=== PATIENT | female | born 1955 | race American Indian/Alaskan Native ===

== ENCOUNTER 2018-03-22 14:51 | Inpatient (IN) | payer OTHER ==
--- NOTE | 2018-03-22 15:50 | Event Note ---
Date: 03/22/18 Pt seen in consultation in our office today by Dr. Benitez. 62-year-old female with no known past medical history presented to her primary care physician's office earlier today with multiple complaints including orthopnea, paroxysmal nocturnal dyspnea, increasing shortness of breath on exertion. The patient also has significant lower extremity edema. In the office today her blood pressure was elevated although she currently reports that she does not take any medications. The patient also has been complaining intermittent chest pain that she describes has been increasing over the last few days. A 12 EKG in the office today revealed sinus rhythm with a right bundle-branch block. She was directly admitted to [facility] per hospitalists for acute congestive heart failure. Will obtain labwork and likely initiate IV diuretics and obtain echo. 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 Further recs to follow per hospital course. Pedro CROWLEY NP / DR. GUILLORY
[2018-03-22 17:33] LABS: Hematocrit 44.7 % (30.3-42.9); Hemoglobin 14.6 gm/dl (10.1-14.3); Mean Corpuscular HGB Conc 33 % (30-34); Mean Corpuscular Volume 90 fl (79-97); Platelet Count 280 K/mm3 (140-440); Red Blood Count 4.96 M/mm3 (3.65-5.03); Red Cell Distribution Width 16.3 % (13.2-15.2)
[2018-03-22 17:54] LABS: Alanine Aminotransferase 14 units/L (7-56); Albumin 3.8 g/dL (3.9-5); BUN/Creatinine Ratio 14; Blood Urea Nitrogen 7 mg/dL (7-17); Calcium 9.5 mg/dL (8.4-10.2); Hemolysis Index 76
--- NOTE | 2018-03-22 18:54 | XRay Report ---
FINAL REPORT EXAM: XR CHEST 1V AP HISTORY: sob TECHNIQUE: Frontal chest x-ray Comparison: None FINDINGS: Enlarged cardiac silhouette. Pulmonary vascular congestion with mild interstitial edema. Left hemidiaphragm is partially silhouetted. Left lung base is incompletely penetrated. Prominent right hilum incompletely assessed. IMPRESSION: Enlarged cardiac silhouette may represent cardiomegaly versus pericardial effusion. Pulmonary vascular congestion. Possible mild congestive failure. No definite pleural effusion on the single-view frontal exam. Incompletely penetrated left lung base. Heart has a somewhat water bottle configuration which may sug gest pericardial effusion. Consider ECHO. Prominence of the right hilum incompletely characterized. If there priors available for comparison, r ecommend comparing or consider CT chest with IV contrast.
[2018-03-23] MEDS ORDERED: DILAUDID IV PRN (00:52)
[2018-03-23] MEDS ORDERED: ZOFRAN IV PRN (00:52)
[2018-03-23] MEDS: LASIX IV SCH ×2 (06:10→17:29)
[2018-03-23] MEDS: SODIUM CHLORIDE FLUSH SYRINGE 10 ML IV PRN ×2 (06:10→12:44)
--- NOTE | 2018-03-23 06:11 | Event Note ---
Date: 03/22/18 See Dictated H/p in reports CHF exacerbation--New onset Direct admit
[2018-03-23 06:13] LABS: Alanine Aminotransferase 12 units/L (7-56); Albumin 3.7 g/dL (3.9-5); BUN/Creatinine Ratio 14; Blood Urea Nitrogen 7 mg/dL (7-17); Hemolysis Index 25
--- NOTE | 2018-03-23 10:57 | Progress Note ---
Assessment and Plan Assessment and plan: Acute systolic heart failure. Patient sent in as a direct admit from [facility] exterior work helper Crystal SILVERIO Coreg by mouth twice a day Diabetes mellitus type 2 Hemoglobin A1c 7.5 Blood glucose less than 120 so will not start scheduled Insulin unless as per sliding scale Morbid obesity. Counseled on diet and exercise to lose weight Full code status. History Interval history: Shortness of breath, No chest pain currently Hospitalist Physical - Physical exam Narrative exam: GEN: Not in acute distress, morbidly obese, sitting up in chair HEENT: Normocephalic, atraumatic, Neck: supple, No JVD Lungs: Bilateral crackles, no rhonchi, no wheeze Heart:S1 and S2 regular, no murmurs, rubs or gallop, Abd:soft, non tender, non distended, normal bowel sounds Ext: Bilateral lower ext edema, no clubbing or cyanosis Neuro: Awake,alert, oriented x 3, No focal signs Paych:Normal mood - Constitutional Vitals: Temp Pulse Resp BP Pulse Ox 97.7 F 78 20 151/68 85 03/23/18 07:58 03/23/18 07:58 03/23/18 07:58 03/23/18 07:58 03/23/18 07:58 Results - Labs CBC & Chem 7: 03/22/18 17:10 03/23/18 05:23 Labs: Laboratory Last Values WBC 5.5 K/mm3 (4.5-11.0) 03/22/18 17:10 RBC 4.96 M/mm3 (3.65-5.03) 03/22/18 17:10 Hgb 14.6 gm/dl (10.1-14.3) H 03/22/18 17:10 Hct 44.7 % (30.3-42.9) H 03/22/18 17:10 MCV 90 fl (79-97) 03/22/18 17:10 MCH 30 pg (28-32) 03/22/18 17:10 MCHC 33 % (30-34) 03/22/18 17:10 RDW 16.3 % (13.2-15.2) H 03/22/18 17:10 Plt Count 280 K/mm3 (140-440) 03/22/18 17:10 Sodium 140 mmol/L (137-145) 03/23/18 05:23 Potassium 4.4 mmol/L (3.6-5.0) 03/23/18 05:23 Chloride 95.9 mmol/L (98-107) L 03/23/18 05:23 Carbon Dioxide 35 mmol/L (22-30) H 03/23/18 05:23 Anion Gap 14 mmol/L 03/23/18 05:23 BUN 7 mg/dL (7-17) 03/23/18 05:23 Creatinine 0.5 mg/dL (0.7-1.2) L 03/23/18 05:23 Estimated GFR > 60 ml/min 03/23/18 05:23 BUN/Creatinine Ratio 14 % 03/23/18 05:23 Glucose 113 mg/dL (65-100) H 03/23/18 05:23 Hemoglobin A1c 7.5 % (4-6) H 03/23/18 05:23 Calcium 9.0 mg/dL (8.4-10.2) 03/23/18 05:23 Total Bilirubin 0.60 mg/dL (0.1-1.2) 03/23/18 05:23 AST 20 units/L (5-40) 03/23/18 05:23 ALT 12 units/L (7-56) 03/23/18 05:23 Alkaline Phosphatase 54 units/L (35-129) 03/23/18 05:23 NT-Pro-B Natriuret Pep 2245 pg/mL (0-900) H 03/22/18 17:10 Total Protein 7.4 g/dL (6.3-8.2) 03/23/18 05:23 Albumin 3.7 g/dL (3.9-5) L 03/23/18 05:23 Albumin/Globulin Ratio 1.0 % 03/23/18 05:23
[2018-03-23] MEDS: SODIUM CHLORIDE FLUSH SYRINGE 10 ML IV SCH ×2 (11:16→21:19)
[2018-03-23] MEDS: K-DUR PO SCH ×2 (11:16→21:19)
--- NOTE | 2018-03-23 15:28 | History and Physical Report ---
CHIEF COMPLAINT: Increasing shortness of breath. HISTORY OF PRESENT ILLNESS: A 62-year-old -[place] female who was a direct admit from the [facility] office, sent for recent onset of shortness of breath on minimal exertion and pedal edema. This has been going on for 1 week. The patient apparently gained about 20-30 pounds of weight. The patient is also morbidly obese. Shortness of breath on minimal exertion and also orthopnea present. No paroxysmal nocturnal dyspnea attacks. No fever or chills. The patient has history of hypertension. MEDICATIONS: Not known. PAST MEDICAL HISTORY: Hypertension, possible CHF. PAST SURGICAL HISTORY: None. FAMILY HISTORY: Hypertension. SOCIAL HISTORY: Does not smoke. No alcohol, no recreational drugs. REVIEW OF SYSTEMS: Significant for shortness of breath on minimal exertion, pedal edema, orthopnea, and morbid obesity. Otherwise, review of systems negative. No chest pain. PHYSICAL EXAMINATION: GENERAL: Morbidly obese young elderly female lying in bed in no distress. VITAL SIGNS: Blood pressure is 147/64, temperature is 97.9, pulse is 105, respirations are 22. HEENT: Unremarkable. Pupils are equal and reactive. NECK: Supple, no lymphadenopathy, no thyromegaly. LUNGS: Clear to auscultation and percussion. Good air entry. CARDIOVASCULAR: S1, S2 heard. No gallop, no murmur, no rub. Apical impulse in left fifth intercostal space and midclavicular line. ABDOMEN: Soft and benign. No hepatosplenomegaly. No guarding, no rigidity. Hernial orifices are normal. EXTREMITIES: Good pedal pulses. 3+ pedal edema present. SKIN: Normal. LABORATORY DATA: Significant for white count of 5500, H and H is 14.6 and 44.7, platelet count is 280,000. BUN and creatinine is 7.5. Sodium is 140, potassium is 4.3, chloride is 95.8, bicarbonate is 33. BNP is 2245. Albumin is 3.8. DIAGNOSTIC DATA: EKG shows a right bundle branch block, heart rate of 82. Chest x-ray shows cardiomegaly, pulmonary vascular congestion. Incompletely penetrated left base. Prominence of right hilum. Consider CT chest with IV contrast. ASSESSMENT AND PLAN: 1. Acute congestive heart failure exacerbation secondary to diastolic failure and possible systolic failure. The patient to get echocardiogram. IV Lasix 40 mg q. 12 initiated daily. Intake, output and daily weights. Also, Lexiscan ordered. 2. Hypertension. The patient initiated on losartan. 3. Morbid obesity. The patient counseled. 4. Malnutrition, mild to moderate. Albumin is 3.8. Dietitian consult requested. JOB# [id number] VSM/NTS
--- NOTE | 2018-03-23 15:36 | Progress Note ---
Assessment and Plan Acute Systolic Heart Failure Echocardiogram reveals moderate to severe left ventricular hypertrophy, ejection fraction 35-40% Recommend carvedilol 6.25 twice a day If tolerates Beta Jason will consider AMERICA/ARB tomorrow Continue IV diuresis Strict I's and O's/daily weights Closely monitor potassium/creatinine Moderate/Severe LVH Hypertension Morbid Obesity Hgb A1c 7.5 recommendation per Hospitalist service Subjective Date of service: 03/23/18 Principal diagnosis: shortness of breath, bilateral lower extremity edema Interval history: Patient is feeling somewhat better this morning. However she continues to complain of some shortness of breath. She is also complaining of tightness in her legs with discomfort. Objective Vital Signs Temp Pulse Resp BP Pulse Ox 03/23/18 07:58 97.7 F 78 20 151/68 85 03/23/18 04:06 97.3 F L 78 20 167/92 92 03/22/18 23:31 97.9 F 85 22 168/89 92 03/22/18 20:04 97.9 F 105 H 22 147/64 92 03/22/18 20:00 88 03/22/18 16:33 83 - Physical Examination General: No Apparent Distress HEENT: Positive: PERRL Neck: Positive: neck supple, trachea midline Cardiac: Positive: Reg Rate and Rhythm Lungs: Positive: Decreased Breath Sounds Neuro: Positive: Grossly Intact Abdomen: Positive: Soft, Active Bowel Sounds, Other (obese) Skin: Positive: Rash Extremities: Present: +3 Edema, warm - Labs and Meds Cardiac Enzymes 03/22/18 03/23/18 Range/Units 17:10 05:23 AST 26 20 (5-40) units/L CBC 03/22/18 Range/Units 17:10 WBC 5.5 (4.5-11.0) K/mm3 RBC 4.96 (3.65-5.03) M/mm3 Hgb 14.6 H (10.1-14.3) gm/dl Hct 44.7 H (30.3-42.9) % Plt Count 280 (140-440) K/mm3 Comprehensive Metabolic Panel 03/22/18 03/23/18 Range/Units 17:10 05:23 Sodium 140 140 (137-145) mmol/L Potassium 4.3 4.4 (3.6-5.0) mmol/L Chloride 95.8 L 95.9 L (98-107) mmol/L Carbon Dioxide 33 H 35 H (22-30) mmol/L BUN 7 7 (7-17) mg/dL Creatinine 0.5 L 0.5 L (0.7-1.2) mg/dL Glucose 118 H 113 H (65-100) mg/dL Calcium 9.5 9.0 (8.4-10.2) mg/dL AST 26 20 (5-40) units/L ALT 14 12 (7-56) units/L Alkaline Phosphatase 55 54 (35-129) units/L Total Protein 7.7 7.4 (6.3-8.2) g/dL Albumin 3.8 L 3.7 L (3.9-5) g/dL - Imaging and Cardiology EKG: report reviewed (sinus 77) Echo: report reviewed (ECHO 03/22/18: TD, EF 35-40%, mod-sev LVH)
[2018-03-23] MEDS: COREG PO SCH ×2 (17:29→21:19)
[2018-03-24] MEDS: LASIX IV SCH ×2 (05:23→17:31)
[2018-03-24 07:05] LABS: BUN/Creatinine Ratio 18; Blood Urea Nitrogen 9 mg/dL (7-17); Calcium 8.6 mg/dL (8.4-10.2); Hemolysis Index 45
[2018-03-24] MEDS: K-DUR PO SCH ×2 (10:14→22:21)
[2018-03-24] MEDS: COREG PO SCH ×2 (10:14→22:22)
[2018-03-24] MEDS: SODIUM CHLORIDE FLUSH SYRINGE 10 ML IV SCH ×2 (10:14→22:21)
[2018-03-24] MEDS: TYLENOL PO PRN (10:20)
--- NOTE | 2018-03-24 11:02 | Progress Note ---
Assessment and Plan Assessment and plan: Acute systolic heart failure. Patient sent in as a direct admit from [facility] project lead Cont Crystal IV Coreg by mouth twice a day Diabetes mellitus type 2 Hemoglobin A1c 7.5 Blood glucose less than 120 so will not start scheduled Insulin unless as per sliding scale Morbid obesity. Counseled on diet and exercise to lose weight Full code status. History Interval history: Less shortness of breath, No chest pain currently Hospitalist Physical - Physical exam Narrative exam: GEN: Not in acute distress, morbidly obese, lying in bed HEENT: Normocephalic, atraumatic, Neck: supple, No JVD Lungs: Bilateral crackles, no rhonchi, no wheeze Heart:S1 and S2 regular, no murmurs, rubs or gallop, Abd:soft, non tender, non distended, normal bowel sounds Ext: Bilateral lower ext edema, no clubbing or cyanosis Neuro: Awake,alert, oriented x 3, No focal signs Paych:Normal mood - Constitutional Vitals: Temp Pulse Resp BP Pulse Ox 97.4 F L 81 20 118/57 92 03/24/18 07:41 03/24/18 10:14 03/24/18 10:00 03/24/18 10:14 03/24/18 07:41 Results - Labs CBC & Chem 7: 03/22/18 17:10 03/24/18 06:11 Labs: Laboratory Last Values WBC 5.5 K/mm3 (4.5-11.0) 03/22/18 17:10 RBC 4.96 M/mm3 (3.65-5.03) 03/22/18 17:10 Hgb 14.6 gm/dl (10.1-14.3) H 03/22/18 17:10 Hct 44.7 % (30.3-42.9) H 03/22/18 17:10 MCV 90 fl (79-97) 03/22/18 17:10 MCH 30 pg (28-32) 03/22/18 17:10 MCHC 33 % (30-34) 03/22/18 17:10 RDW 16.3 % (13.2-15.2) H 03/22/18 17:10 Plt Count 280 K/mm3 (140-440) 03/22/18 17:10 Sodium 139 mmol/L (137-145) 03/24/18 06:11 Potassium 4.8 mmol/L (3.6-5.0) 03/24/18 06:11 Chloride 93.6 mmol/L (98-107) L 03/24/18 06:11 Carbon Dioxide 35 mmol/L (22-30) H 03/24/18 06:11 Anion Gap 15 mmol/L 03/24/18 06:11 BUN 9 mg/dL (7-17) 03/24/18 06:11 Creatinine 0.5 mg/dL (0.7-1.2) L 03/24/18 06:11 Estimated GFR > 60 ml/min 03/24/18 06:11 BUN/Creatinine Ratio 18 % 03/24/18 06:11 Glucose 111 mg/dL (65-100) H 03/24/18 06:11 Hemoglobin A1c 7.5 % (4-6) H 03/23/18 05:23 Calcium 8.6 mg/dL (8.4-10.2) 03/24/18 06:11 Total Bilirubin 0.60 mg/dL (0.1-1.2) 03/23/18 05:23 AST 20 units/L (5-40) 03/23/18 05:23 ALT 12 units/L (7-56) 03/23/18 05:23 Alkaline Phosphatase 54 units/L (35-129) 03/23/18 05:23 NT-Pro-B Natriuret Pep 2245 pg/mL (0-900) H 03/22/18 17:10 Total Protein 7.4 g/dL (6.3-8.2) 03/23/18 05:23 Albumin 3.7 g/dL (3.9-5) L 03/23/18 05:23 Albumin/Globulin Ratio 1.0 % 03/23/18 05:23
--- NOTE | 2018-03-24 12:56 | Progress Note ---
Assessment and Plan Acute Systolic Heart Failure EF 35-40% Echocardiogram reveals moderate to severe left ventricular hypertrophy Recommend carvedilol 6.25 twice a day start lisinopril today Continue IV diuresis Strict I's and O's/daily weights Closely monitor potassium/creatinine Respiratory therapy to evaluate for hypoxia/home oxygen therapy Moderate/Severe LVH Hypertension Morbid Obesity Hgb A1c 7.5 recommendation per Hospitalist service Subjective Date of service: 03/24/18 Principal diagnosis: shortness of breath, bilateral lower extremity edema Interval history: Patient is sitting up in bed states that she feels better. She continues to feel that she needs to the nasal cannula/oxygen. Objective Vital Signs Temp Pulse Resp Resp BP Pulse Ox 03/24/18 10:14 81 118/57 03/24/18 10:00 20 03/24/18 07:41 97.4 F L 81 20 118/57 92 03/24/18 03:51 98.2 F 73 18 150/83 92 03/23/18 23:22 97.9 F 73 16 116/61 100 03/23/18 22:00 20 18 03/23/18 21:19 84 111/51 03/23/18 20:04 98.0 F 89 19 100/46 92 03/23/18 17:14 97.9 F 78 20 144/65 93 03/23/18 13:00 76 - Physical Examination General: No Apparent Distress HEENT: Positive: PERRL Neck: Positive: neck supple, trachea midline Cardiac: Positive: Reg Rate and Rhythm Lungs: Positive: clear to auscultation, Normal Breath Sounds Neuro: Positive: Grossly Intact Abdomen: Positive: Soft, Active Bowel Sounds, Other (obese) Skin: Positive: Rash Extremities: Present: +1 Edema, warm - Labs and Meds Comprehensive Metabolic Panel 03/24/18 Range/Units 06:11 Sodium 139 (137-145) mmol/L Potassium 4.8 (3.6-5.0) mmol/L Chloride 93.6 L (98-107) mmol/L Carbon Dioxide 35 H (22-30) mmol/L BUN 9 (7-17) mg/dL Creatinine 0.5 L (0.7-1.2) mg/dL Glucose 111 H (65-100) mg/dL Calcium 8.6 (8.4-10.2) mg/dL - Imaging and Cardiology EKG: report reviewed (sinus) Echo: report reviewed (ECHO 03/22/18: TD, EF 35-40%, mod-sev LVH)
[2018-03-24] MEDS: ZESTRIL PO SCH (17:32)
[2018-03-24] MEDS: LOVENOX SUB-Q SCH (22:21)
[2018-03-25] MEDS: LASIX IV SCH ×2 (05:32→17:01)
--- NOTE | 2018-03-25 11:15 | Progress Note ---
Assessment and Plan Acute Systolic Heart Failure EF 35-40% Cont coreg and lisinopril Continue IV diuresis Strict I's and O's/daily weights Closely monitor potassium/creatinine Respiratory therapy to evaluate for hypoxia/home oxygen therapy Moderate/Severe LVH Hypertension Morbid Obesity Hgb A1c 7.5 recommendation per Hospitalist service The patient has been seen in conjunction with Dr. Bazan who agrees with the assessment and plan of care. Subjective Date of service: 03/25/18 Principal diagnosis: shortness of breath, bilateral lower extremity edema Interval history: pt resting in bed, states she is feeling a little better today, BLE gradually improving, SOB improved. tele reviewed - in SR with 7 beat run NSVT overnight, pt asymptomatic. Objective Last Vital Signs Temp 98.1 F 03/25/18 07:34 Pulse 72 03/25/18 07:34 Resp 20 03/25/18 07:34 BP 102/63 03/25/18 07:34 Pulse Ox 96 03/25/18 07:34 - Physical Examination General: No Apparent Distress HEENT: Positive: PERRL Neck: Positive: neck supple, trachea midline Cardiac: Positive: Reg Rate and Rhythm, S1/S2 Lungs: Positive: Decreased Breath Sounds Neuro: Positive: Grossly Intact Abdomen: Positive: Soft, Active Bowel Sounds, Other (obese) Skin: Positive: Rash Extremities: Present: +2 Edema (BLE), warm - Imaging and Cardiology EKG: report reviewed (sinus) Echo: report reviewed (ECHO 03/22/18: TD, EF 35-40%, mod-sev LVH) - Telemetry EKG Rhythm: Sinus Rhythm
[2018-03-25] MEDS: COREG PO SCH ×2 (11:32→21:38)
[2018-03-25] MEDS: K-DUR PO SCH ×2 (11:33→21:39)
[2018-03-25] MEDS: SODIUM CHLORIDE FLUSH SYRINGE 10 ML IV SCH (11:34)
[2018-03-25] MEDS: ZESTRIL PO SCH (11:34)
--- NOTE | 2018-03-25 13:59 | Progress Note ---
Assessment and Plan Assessment and plan: Acute systolic heart failure. Patient sent in as a direct admit from [facility] critical care physician Cont Crystal IV Coreg by mouth twice a day Diabetes mellitus type 2 Hemoglobin A1c 7.5 Blood glucose less than 120 so will not start scheduled Insulin unless as per sliding scale Morbid obesity. Counseled on diet and exercise to lose weight Full code status. Dispo:Poss dc in 1-2 days pending cardiology History Interval history: Less shortness of breath, No chest pain currently Hospitalist Physical - Physical exam Narrative exam: GEN: Not in acute distress, morbidly obese, lying in bed HEENT: Normocephalic, atraumatic, Neck: supple, No JVD Lungs: Bilateral crackles, no rhonchi, no wheeze Heart:S1 and S2 regular, no murmurs, rubs or gallop, Abd:soft, non tender, non distended, normal bowel sounds Ext: Bilateral lower ext edema, no clubbing or cyanosis Neuro: Awake,alert, oriented x 3, No focal signs Paych:Normal mood - Constitutional Vitals: Temp Pulse Resp BP Pulse Ox 98.1 F 73 20 151/81 96 03/25/18 07:34 03/25/18 11:34 03/25/18 07:34 03/25/18 11:34 03/25/18 07:34 Results - Labs CBC & Chem 7: 03/22/18 17:10 03/24/18 06:11 Labs: Laboratory Last Values WBC 5.5 K/mm3 (4.5-11.0) 03/22/18 17:10 RBC 4.96 M/mm3 (3.65-5.03) 03/22/18 17:10 Hgb 14.6 gm/dl (10.1-14.3) H 03/22/18 17:10 Hct 44.7 % (30.3-42.9) H 03/22/18 17:10 MCV 90 fl (79-97) 03/22/18 17:10 MCH 30 pg (28-32) 03/22/18 17:10 MCHC 33 % (30-34) 03/22/18 17:10 RDW 16.3 % (13.2-15.2) H 03/22/18 17:10 Plt Count 280 K/mm3 (140-440) 03/22/18 17:10 Sodium 139 mmol/L (137-145) 03/24/18 06:11 Potassium 4.8 mmol/L (3.6-5.0) 03/24/18 06:11 Chloride 93.6 mmol/L (98-107) L 03/24/18 06:11 Carbon Dioxide 35 mmol/L (22-30) H 03/24/18 06:11 Anion Gap 15 mmol/L 03/24/18 06:11 BUN 9 mg/dL (7-17) 03/24/18 06:11 Creatinine 0.5 mg/dL (0.7-1.2) L 03/24/18 06:11 Estimated GFR > 60 ml/min 03/24/18 06:11 BUN/Creatinine Ratio 18 % 03/24/18 06:11 Glucose 111 mg/dL (65-100) H 03/24/18 06:11 POC Glucose 101 (70-105) 03/25/18 11:59 Hemoglobin A1c 7.5 % (4-6) H 03/23/18 05:23 Calcium 8.6 mg/dL (8.4-10.2) 03/24/18 06:11 Total Bilirubin 0.60 mg/dL (0.1-1.2) 03/23/18 05:23 AST 20 units/L (5-40) 03/23/18 05:23 ALT 12 units/L (7-56) 03/23/18 05:23 Alkaline Phosphatase 54 units/L (35-129) 03/23/18 05:23 NT-Pro-B Natriuret Pep 2245 pg/mL (0-900) H 03/22/18 17:10 Total Protein 7.4 g/dL (6.3-8.2) 03/23/18 05:23 Albumin 3.7 g/dL (3.9-5) L 03/23/18 05:23 Albumin/Globulin Ratio 1.0 % 03/23/18 05:23
[2018-03-25] MEDS: TYLENOL PO PRN (20:04)
[2018-03-25] MEDS: LOVENOX SUB-Q SCH (21:39)
[2018-03-25] MEDS: SODIUM CHLORIDE FLUSH SYRINGE 10 ML IV PRN (21:40)
[2018-03-26 05:59] LABS: Hematocrit 42.9 % (30.3-42.9); Hemoglobin 13.7 gm/dl (10.1-14.3); Mean Corpuscular HGB Conc 32 % (30-34); Mean Corpuscular Volume 92 fl (79-97); Platelet Count 245 K/mm3 (140-440); Red Blood Count 4.67 M/mm3 (3.65-5.03); Red Cell Distribution Width 15.6 % (13.2-15.2)
[2018-03-26 06:20] LABS: BUN/Creatinine Ratio 18; Blood Urea Nitrogen 9 mg/dL (7-17); Calcium 8.9 mg/dL (8.4-10.2); Hemolysis Index 9
[2018-03-26] MEDS: LASIX IV SCH ×2 (06:27→18:22)
[2018-03-26] MEDS: SODIUM CHLORIDE FLUSH SYRINGE 10 ML IV SCH ×2 (06:28→09:53)
[2018-03-26] MEDS: TYLENOL PO PRN (07:43)
[2018-03-26] MEDS: K-DUR PO SCH (09:52)
[2018-03-26] MEDS: COREG PO SCH (09:52)
[2018-03-26] MEDS: ZESTRIL PO SCH (09:53)
--- NOTE | 2018-03-26 13:14 | Discharge Summary ---
Providers - Providers Date of Admission: 03/22/18 15:41 Attending physician: CLEMENTINE ENGEL MD 03/22/18 15:12 Consult to Physician [CONS] Routine Comment: Consulting Provider: KAYLIE FARLEY Physician Instructions: Reason For Exam: HEART FAILURE Primary care physician: LUCI MARY Hospitalization Condition: Good Hospital course: 62-year-old woman who presented to her PCPs office. She was complaining orthopnea, PND, VAZ, pedal edema. She was not currently taking any medications at the time. She was then sent to the hospital for suspected heart failure. The patient was found to have acute systolic heart failure, she was diuresds, medications optimized. She was being comanaged by cardiology who agreed with medical management. Diagnoses Acute systolic heart failure, EF 30% Hypertension Obesity, morbid Diabetes type 2 hypokalemia Disposition: TO HOME OR SELFCARE Time spent for discharge: 33 minutes Core Measure Documentation - Palliative Care Palliative Care/ Comfort Measures: Not Applicable - Core Measures Any of the following diagnoses?: heart failure - Heart Failure Discharge Requirements AMERICA/ARB for LVSD if EF <40%: Yes Beta chika at discharge: Yes Exam - Constitutional Vitals: Temp Pulse Resp BP Pulse Ox 97.9 F 79 20 140/67 96 03/26/18 07:33 03/26/18 09:53 03/26/18 07:33 03/26/18 09:53 03/26/18 07:33 General appearance: Present: no acute distress, well-nourished - EENT Eyes: Present: PERRL ENT: hearing intact, clear oral mucosa - Neck Neck: Present: supple, normal ROM - Respiratory Respiratory effort: normal Respiratory: bilateral: CTA - Cardiovascular Heart Sounds: Present: S1 & S2. Absent: rub, click - Extremities Extremities: pulses symmetrical, No edema Peripheral Pulses: within normal limits - Abdominal General gastrointestinal: Present: soft, non-tender, non-distended, normal bowel sounds Female genitourinary: Present: normal - Integumentary Integumentary: Present: clear, warm, dry - Musculoskeletal Musculoskeletal: gait normal, strength equal bilaterally - Psychiatric Psychiatric: appropriate mood/affect, intact judgment & insight - Neurologic Neurologic: CNII-XII intact, moves all extremities Plan Follow up with: LUCI MARY MD [Primary Care Provider] - 7 Days Prescriptions: Carvedilol [Coreg] 6.25 mg PO BID #60 tablet Furosemide [Lasix TAB] 40 mg PO BID #60 tablet Lisinopril [Zestril TAB] 5 mg PO QDAY #30 tablet Potassium Chloride [K-Dur] 20 meq PO Q12H #60 tablet Other Discharge Orders: Oxygen (Amb) Location: None Selected
--- NOTE | 2018-03-26 13:32 | Progress Note ---
Assessment and Plan Acute Systolic Heart Failure EF 35-40% Cont coreg and lisinopril Nearing/at euvolemia. Moderate/Severe LVH Hypertension Morbid Obesity Hgb A1c 7.5 recommendation per Hospitalist service Currently stable cardiac status. Pt may discharge home from cardiology standpoint. At discharge, recommend conversion of IV lasix to PO lasix 40mg daily, cont coreg and lisinopril. Recommend pt follow up in our office with Dr. Benitez within 3-5 days of hospital discharge ([phone]). The patient has been seen in conjunction with Dr. Bazan who agrees with the assessment and plan of care. Subjective Date of service: 03/26/18 Principal diagnosis: shortness of breath, bilateral lower extremity edema Interval history: pt resting in bed, states she feels as though she is ready to discharge home. tele reviewed - in SR overnight. Objective Last Vital Signs Temp 97.9 F 03/26/18 07:33 Pulse 79 03/26/18 09:53 Resp 20 03/26/18 07:33 BP 140/67 03/26/18 09:53 Pulse Ox 96 03/26/18 07:33 - Physical Examination General: No Apparent Distress HEENT: Positive: PERRL Neck: Positive: neck supple, trachea midline Cardiac: Positive: Reg Rate and Rhythm, S1/S2 Lungs: Positive: Decreased Breath Sounds Neuro: Positive: Grossly Intact Abdomen: Positive: Soft, Active Bowel Sounds, Other (obese) Skin: Positive: Rash Extremities: Present: +2 Edema (BLE), warm - Labs and Meds CBC 03/26/18 Range/Units 05:01 WBC 3.5 L (4.5-11.0) K/mm3 RBC 4.67 (3.65-5.03) M/mm3 Hgb 13.7 (10.1-14.3) gm/dl Hct 42.9 (30.3-42.9) % Plt Count 245 (140-440) K/mm3 Comprehensive Metabolic Panel 03/26/18 Range/Units 05:01 Sodium 140 (137-145) mmol/L Potassium 4.7 (3.6-5.0) mmol/L Chloride 93.0 L (98-107) mmol/L Carbon Dioxide 40 H (22-30) mmol/L BUN 9 (7-17) mg/dL Creatinine 0.5 L (0.7-1.2) mg/dL Glucose 105 H (65-100) mg/dL Calcium 8.9 (8.4-10.2) mg/dL - Imaging and Cardiology EKG: report reviewed (sinus) Echo: report reviewed (ECHO 03/22/18: TD, EF 35-40%, mod-sev LVH)
[2018-03-26 16:14] VITALS: BP 153/57
== END 2018-03-26 19:45 | disposition home or self-care (01) | DRG 292 ==
LOC: UNDOADMIN 14:51 → 4A 14:51 → EDBD 15:41
PROVIDERS: ADMIT Internal Medicine; ATTEND Internal Medicine
DX: I11.0 Hypertensive heart disease with heart failure (principal); Z68.43 Body mass index [BMI] 50.0-59.9, adult; E44.0 Moderate protein-calorie malnutrition; I50.41 Acute combined systolic (congestive) and diastolic (congestive) heart failure; E66.01 Morbid (severe) obesity due to excess calories; Z82.49 Family history of ischemic heart disease and other diseases of the circulatory system; Z71.3 Dietary counseling and surveillance
CPT/HCPCS: 36415; 71045; 80048; 80053; 82962; 83036; 83880; 85027; 93005; 93010; 93306; G0378; J1170; J1650; J1940

== ENCOUNTER 2018-07-22 17:27 | Inpatient (IN) | payer MEDICARE, OTHER ==
[2018-07-22] MEDS ORDERED: LASIX IV ONE (18:23)
[2018-07-22] MEDS ORDERED: NITRO-BID 2% TP ONE (18:23)
--- NOTE | 2018-07-22 18:35 | Emergency Department Report ---
ED Shortness of Breath HPI - General Chief Complaint: Dyspnea/Respdistress Stated Complaint: FRANCISCO Time Seen by Provider: 07/22/18 18:12 Source: patient, EMS, old records reviewed Mode of arrival: Stretcher Limitations: No Limitations - History of Present Illness Initial Comments: 63-year-old female with a past medical history morbid obesity, CHF, and hyp ertension presents from a primary care doctor office with complaints of shortness of breath. Patient had a scheduled revisit. Patient states he is having similar symptoms that she was having when she was admitted here in March for newly diagnosed CHF. Patient states when her prescriptions ran out from her March admission she did not continue the medication because there were no refills she did not understand that she was supposed to follow-up with her doctor for additional medication. She complains of worsening orthopnea, PND, dyspnea on exertion and occasional dry cough. She denies any chest pain. She cannot recall the name of her primary care doctor. As per medical record ejection fraction 35-40% on March 2018 ECHO - Related Data Previous Rx's Medication Instructions Recorded Last Taken Type Carvedilol [Coreg] 6.25 mg PO BID #60 tablet 03/26/18 Unknown Rx Furosemide [Lasix TAB] 40 mg PO BID #60 tablet 03/26/18 Unknown Rx Lisinopril [Zestril TAB] 5 mg PO QDAY #30 tablet 03/26/18 Unknown Rx Potassium Chloride [K-Dur] 20 meq PO Q12H #60 tablet 03/26/18 Unknown Rx Allergies Allergy/AdvReac Type Severity Reaction Status Date / Time No Known Allergies Allergy Unverified 03/22/18 15:11 ED Review of Systems ROS: Stated complaint: FRANCISCO Other details as noted in HPI Comment: All other systems reviewed and negative ED Past Medical Hx - Past Medical History Previous Medical History?: Yes Hx Hypertension: Yes Hx Congestive Heart Failure: Yes - Surgical History Past Surgical History?: No - Social History Smoking Status: Never Smoker Substance Use Type: None - Medications Home Medications: Home Medications Medication Instructions Recorded Confirmed Last Taken Type Carvedilol [Coreg] 6.25 mg PO BID #60 tablet 03/26/18 Unknown Rx Furosemide [Lasix TAB] 40 mg PO BID #60 tablet 03/26/18 Unknown Rx Lisinopril [Zestril TAB] 5 mg PO QDAY #30 tablet 03/26/18 Unknown Rx Potassium Chloride [K-Dur] 20 meq PO Q12H #60 tablet 03/26/18 Unknown Rx ED Physical Exam - General Limitations: No Limitations - Other Other exam information: General: No limitations, patient is alert in no acute distress Head exam: Atraumatic, normocephalic Eyes exam: Normal appearance, pupils equal reactive to light, extraocular movements intact ENT: Moist mucous membrane Neck exam: Normal inspection, full range of motion, no meningismus nontender Respiratory exam: Mild expiratory wheeze with bilateral crackles, no tachypnea or accessory muscle use Cardiovascular: Mild tachycardia regular rhythm Abdomen: Soft, nondistended, and nontender, with normal bowel sounds, no rebound, or guarding Extremity: Full range of motion normal inspection no deformity, bilateral pitting lower extremity edema Back: Normal Inspection, full range of motion, no tenderness Neurologic: Alert, oriented x3, cranial nerves intact, no motor or sensory deficit Psychiatric: normal affect, normal mood Skin: Warm, dry, intact ED Course Vital Signs 07/22/18 07/22/18 07/22/18 17:40 18:55 19:24 Temperature 97.9 F Pulse Rate 106 H 81 Respiratory 16 18 Rate Blood Pressure 176/116 162/94 Blood Pressure 160/84 [Left] O2 Sat by Pulse 95 97 Oximetry - Reevaluation(s) Reevaluation #1: 07/22/18 21:29 abg ordered, pt refused further attempts ED Medical Decision Making - Lab Data Result diagrams: 07/22/18 19:25 07/22/18 19:35 Lab Results 07/22/18 07/22/18 07/22/18 Range/Units 19:25 19:35 19:35 WBC 4.7 (4.5-11.0) K/mm3 RBC 5.07 H (3.65-5.03) M/mm3 Hgb 14.4 H (10.1-14.3) gm/dl Hct 45.9 H (30.3-42.9) % MCV 91 (79-97) fl MCH 28 (28-32) pg MCHC 31 (30-34) % RDW 17.2 H (13.2-15.2) % Plt Count 340 (140-440) K/mm3 Lymph % (Auto) 25.9 (13.4-35.0) % [place] % (Auto) 13.1 H (0.0-7.3) % Eos % (Auto) 2.9 (0.0-4.3) % Baso % (Auto) 0.7 (0.0-1.8) % Lymph # 1.2 (1.2-5.4) K/mm3 [place] # 0.6 (0.0-0.8) K/mm3 Eos # 0.1 (0.0-0.4) K/mm3 Baso # 0.0 (0.0-0.1) K/mm3 Seg Neutrophils % 57.4 (40.0-70.0) % Seg Neutrophils # 2.7 (1.8-7.7) K/mm3 PT 15.5 H (12.2-14.9) Sec. INR 1.16 H (0.87-1.13) APTT 34.6 (24.2-36.6) Sec. Sodium 140 (137-145) mmol/L Potassium 4.4 (3.6-5.0) mmol/L Chloride 94.4 L (98-107) mmol/L Carbon Dioxide 35 H (22-30) mmol/L Anion Gap 15 mmol/L BUN 5 L (7-17) mg/dL Creatinine 0.5 L (0.7-1.2) mg/dL Estimated GFR > 60 ml/min BUN/Creatinine Ratio 10 % Glucose 118 H (65-100) mg/dL Calcium 8.9 (8.4-10.2) mg/dL Total Bilirubin 0.70 (0.1-1.2) mg/dL AST 22 (5-40) units/L ALT 10 (7-56) units/L Alkaline Phosphatase 69 (35-129) units/L Total Creatine Kinase (30-135) units/L CK-MB (CK-2) (0.0-4.0) ng/mL CK-MB (CK-2) Rel Index (0-4) Troponin T (0.00-0.029) ng/mL NT-Pro-B Natriuret Pep (0-900) pg/mL Total Protein 8.3 H (6.3-8.2) g/dL Albumin 3.3 L (3.9-5) g/dL Albumin/Globulin Ratio 0.7 % 07/22/18 Range/Units 19:36 WBC (4.5-11.0) K/mm3 RBC (3.65-5.03) M/mm3 Hgb (10.1-14.3) gm/dl Hct (30.3-42.9) % MCV (79-97) fl MCH (28-32) pg MCHC (30-34) % RDW (13.2-15.2) % Plt Count (140-440) K/mm3 Lymph % (Auto) (13.4-35.0) % [place] % (Auto) (0.0-7.3) % Eos % (Auto) (0.0-4.3) % Baso % (Auto) (0.0-1.8) % Lymph # (1.2-5.4) K/mm3 [place] # (0.0-0.8) K/mm3 Eos # (0.0-0.4) K/mm3 Baso # (0.0-0.1) K/mm3 Seg Neutrophils % (40.0-70.0) % Seg Neutrophils # (1.8-7.7) K/mm3 PT (12.2-14.9) Sec. INR (0.87-1.13) APTT (24.2-36.6) Sec. Sodium (137-145) mmol/L Potassium (3.6-5.0) mmol/L Chloride (98-107) mmol/L Carbon Dioxide (22-30) mmol/L Anion Gap mmol/L BUN (7-17) mg/dL Creatinine (0.7-1.2) mg/dL Estimated GFR ml/min BUN/Creatinine Ratio % Glucose (65-100) mg/dL Calcium (8.4-10.2) mg/dL Total Bilirubin (0.1-1.2) mg/dL AST (5-40) units/L ALT (7-56) units/L Alkaline Phosphatase (35-129) units/L Total Creatine Kinase 122 (30-135) units/L CK-MB (CK-2) 2.3 (0.0-4.0) ng/mL CK-MB (CK-2) Rel Index 1.8 (0-4) Troponin T 0.020 (0.00-0.029) ng/mL NT-Pro-B Natriuret Pep 3049 H (0-900) pg/mL Total Protein (6.3-8.2) g/dL Albumin (3.9-5) g/dL Albumin/Globulin Ratio % - EKG Data -: EKG Interpreted by Me (YORDY) EKG shows normal: sinus rhythm, axis (qrs 13), QRS complexes (qrsd 126), ST-T waves (no stemi/ t inv) Rate: tachycardia (106) - EKG Data When compared to previous EKG there are: no significant change, previous EKG unavailable - Radiology Data Radiology results: report reviewed PROCEDURE: XR CHEST 1V AP TECHNIQUE: Chest radiograph single view. HISTORY: Dyspnea COMPARISONS: March 22, 2018 . FINDINGS: Heart: Mild cardiomegaly is noted. Mediastinum/Vessels: Normal. Lungs/Pleural space: Lungs are hyperinflated. Left lower lung and left costophrenic angle are obscured by the cardiac shadow. Right lung and right pleural spaces are clear. Bony thorax: No acute osseous abnormality. Life support devices: None. IMPRESSION: COPD Left lower lung and left costophrenic angle are obscured by the cardiac shadow. Any underlying infiltrates and left pleural effusion cannot be excluded. A two-view chest study is recommended whenever the patient's condition permits - Medical Decision Making + chf exacerbation and uncontrolled htn due to med noncompliance tx with nitro paste and lasix in ed with + diureses ABG ordered to rule out CO2 retention, patient refused Hospitalist informed of admission (Dr Pruitt) - Differential Diagnosis CHF, PE, CVA, sleep apnea, hypertensive emergency, reactive airway disease Critical Care Time: No Critical care attestation.: If time is entered above; I have spent that time in minutes in the direct care of this critically ill patient, excluding procedure time. ED Disposition Clinical Impression: CHF exacerbation, Uncontrolled hypertension, Noncompliance with medication regimen, Obesity Disposition: OP ADMIT IP TO THIS HOSP Is pt being admited?: Yes Condition: Stable Time of Disposition: 21:32 (Dr Pruitt/hosp)
[2018-07-22 19:56] LABS: Basophils % (Auto) 0.7 % (0.0-1.8); Eosinophils # (Auto) 0.1 K/mm3 (0.0-0.4); Eosinophils % (Auto) 2.9 % (0.0-4.3); Hematocrit 45.9 % (30.3-42.9); Hemoglobin 14.4 gm/dl (10.1-14.3); Lymphocytes # (Auto) 1.2 K/mm3 (1.2-5.4); Lymphocytes % (Auto) 25.9 % (13.4-35.0); Mean Corpuscular HGB Conc 31 % (30-34); Mean Corpuscular Volume 91 fl (79-97); Monocytes # (Auto) 0.6 K/mm3 (0.0-0.8); Monocytes % (Auto) 13.1 % (0.0-7.3); Platelet Count 340 K/mm3 (140-440); Red Blood Count 5.07 M/mm3 (3.65-5.03); Red Cell Distribution Width 17.2 % (13.2-15.2)
[2018-07-22 20:13] LABS: Alanine Aminotransferase 10 units/L (7-56); Albumin 3.3 g/dL (3.9-5); BUN/Creatinine Ratio 10; Blood Urea Nitrogen 5 mg/dL (7-17); Calcium 8.9 mg/dL (8.4-10.2); Hemolysis Index 11
[2018-07-22 20:15] LABS: INR 1.16 (0.87-1.13)
[2018-07-22 20:15] LABS: Creatine Kinase MB 2.3 ng/mL (0.0-4.0)
[2018-07-22 20:21] LABS: Partial Thromboplastin Time 34.6 Sec. (24.2-36.6)
--- NOTE | 2018-07-22 20:36 | XRay Report ---
PROCEDURE: XR CHEST 1V AP TECHNIQUE: Chest radiograph single view. HISTORY: Dyspnea COMPARISONS: March 22, 2018 . FINDINGS: Heart: Mild cardiomegaly is noted. Mediastinum/Vessels: Normal. Lungs/Pleural space: Lungs are hyperinflated. Left lower lung and left costophrenic angle are obscur ed by the cardiac shadow. Right lung and right pleural spaces are clear. Bony thorax: No acute osseous abnormality. Life support devices: None. IMPRESSION: COPD Left lower lung and left costophrenic angle are obscured by the cardiac shadow. Any underlying infilt rates and left pleural effusion cannot be excluded. A two-view chest study is recommended whenever th e patient's condition permits This document is electronically signed by Curtis Alvarado MD., Jul 22 2018 08:33:37 PM ET
[2018-07-22] MEDS ORDERED: ZOFRAN IV PRN (21:59)
--- NOTE | 2018-07-22 22:05 | History and Physical Report ---
History of Present Illness Date of examination: 07/22/18 History of present illness: 63-year-old woman with a history of CHF, EF of 35%, hypertension, diabetes, morbid obesity, see emergency room complaints of shortness of breath and stated that she blew up. She has swelling all over, also complain of PND, orthopnea an d lower extremity edema. She was admitted to the hospital in March discharged on the , after she completed the medication that she was upon discharge, she has not taken any further medication, she states she had no refills and had problems going to her primary care physician. She went for a physical today, they sent her to the emergency room for further evaluation Review of systems Constitutional: no weight loss, chills, fever Ears, eyes, nose, mouth and throat: no nasal congestion, no nasal discharge, no sinus pressure, no vision change, no red eye. Neck: No neck pain or rigidity. Cardiovascular: no palpitations, chest pain Respiratory: no cough, +shortness of breath Gastrointestinal: no hematochezia, abdominal pain Genitourinary : no frequency , no hematuria Musculoskeletal: no joint swelling or muscle ache Integumentary: no rash, no pruritis Neurological: no parathesias, no focal weakness Endocrine: no cold or heat intolerance, no polyuria or polydipsia Hematologic/Lymphatic: no easy bruising, no easy bleeding, no gland swelling Allergic/Immunologic: no urticaria, no angioedema. PAST MEDICAL HISTORY:CHF, EF of 35%, hypertension, diabetes, morbid obesity PAST SURGICAL HISTORY: none SOCIAL HISTORY: Denies alcohol, drugs, tobacco FAMILY HISTORY: Hypertension Medications and Allergies Allergies Allergy/AdvReac Type Severity Reaction Status Date / Time Cheese AdvReac Nausea Uncoded 07/23/18 15:23 Peanut butter AdvReac Nausea Uncoded 07/23/18 15:22 Home Medications Medication Instructions Recorded Confirmed Last Taken Type Furosemide [Lasix TAB] 40 mg PO BID #60 tablet 03/26/18 07/25/18 Unknown Rx Lisinopril [Zestril TAB] 5 mg PO QDAY #30 tablet 03/26/18 07/25/18 Unknown Rx Potassium Chloride [K-Dur] 20 meq PO Q12H #60 tablet 03/26/18 07/25/18 Unknown Rx Aspirin [Aspirin BABY CHEW TAB] 81 mg PO QDAY tab.chew 07/30/18 Unknown Rx AtorvaSTATin [Lipitor] 40 mg PO QHS #30 tab 07/30/18 Unknown Rx Metoprolol [Lopressor TAB] 75 mg PO BID tablet 07/30/18 Unknown Rx Active Meds: Active Medications Acetaminophen (Tylenol) 650 mg PO Q4H PRN PRN Reason: Pain MILD(1-3)/Fever >100.5/KIM[place]ALL Aspirin (Baby Aspirin) 81 mg PO QDAY DANIEL Enoxaparin Sodium (Lovenox) 30 mg SUB-Q QDAY DANIEL Furosemide (Lasix) 40 mg IV BID@0600,1800 DANIEL Lisinopril (Zestril) 2.5 mg PO QDAY DANIEL Metoprolol Tartrate (Lopressor) 25 mg PO BID DANIEL Ondansetron HCl (Zofran) 4 mg IV Q8H PRN PRN Reason: Nausea And Vomiting Sodium Chloride (Sodium Chloride Flush Syringe 10 Ml) 10 ml IV BID DANIEL Sodium Chloride (Sodium Chloride Flush Syringe 10 Ml) 10 ml IV PRN PRN PRN Reason: LINE FLUSH Exam - Physical Exam Narrative exam: General Apperance: The patient lying in bed, breathing comfortable HEENT: Normocephalic, atraumatic. Pupils equally round and reactive to light, EOMI, no sclericterus or JVD or thyromegaly or nodule. , no carotid bruit, mucous membranes moist, no exudate or erythema Heart: S1-S2, regular is rhythm Lungs: Decreased breath sounds at bases bilaterally, breathing comfortable Abdomen: Positive bowel sounds, soft, nontender, nondistended, no organomegaly Extremities: + edema , no cyanosis clubbing Skin: no rash, nodule, warm and dry Neuro: cranial nerves 2-12 intact, speech is fluent, motor/sensory intact - Constitutional Vitals: Temp Pulse Resp BP Pulse Ox 97.9 F 81 18 160/84 97 07/22/18 17:40 07/22/18 19:24 07/22/18 19:24 07/22/18 19:24 07/22/18 19:24 Results - Labs CBC & Chem 7: 07/24/18 06:07 07/28/18 13:01 Labs: Abnormal lab results 07/22/18 07/22/18 07/22/18 Range/Units 19:25 19:35 19:35 RBC 5.07 H (3.65-5.03) M/mm3 Hgb 14.4 H (10.1-14.3) gm/dl Hct 45.9 H (30.3-42.9) % RDW 17.2 H (13.2-15.2) % [place] % (Auto) 13.1 H (0.0-7.3) % PT 15.5 H (12.2-14.9) Sec. INR 1.16 H (0.87-1.13) Chloride 94.4 L (98-107) mmol/L Carbon Dioxide 35 H (22-30) mmol/L BUN 5 L (7-17) mg/dL Creatinine 0.5 L (0.7-1.2) mg/dL Glucose 118 H (65-100) mg/dL NT-Pro-B Natriuret Pep (0-900) pg/mL Total Protein 8.3 H (6.3-8.2) g/dL Albumin 3.3 L (3.9-5) g/dL 07/22/18 Range/Units 19:36 RBC (3.65-5.03) M/mm3 Hgb (10.1-14.3) gm/dl Hct (30.3-42.9) % RDW (13.2-15.2) % [place] % (Auto) (0.0-7.3) % PT (12.2-14.9) Sec. INR (0.87-1.13) Chloride (98-107) mmol/L Carbon Dioxide (22-30) mmol/L BUN (7-17) mg/dL Creatinine (0.7-1.2) mg/dL Glucose (65-100) mg/dL NT-Pro-B Natriuret Pep 3049 H (0-900) pg/mL Total Protein (6.3-8.2) g/dL Albumin (3.9-5) g/dL - Imaging and Cardiology EKG: image reviewed Chest x-ray: report reviewed Assessment and Plan Assessment Acute on chronic systolic heart failure Hypertension Diabetes Obesity Noncompliant Plan Admit to medicine Diuresis with IV Lasix Start BBlocker AMERICA inhibitor, aspirin Monitor I's and O's, daily weights Check cardiac enzymes, echo, consult cardiology Check fingersticks, glucose levels in normal range Continue to monitor, all sliding scale DVT prophylaxis Complaints discuss the condition, verbalized understanding
[2018-07-22] MEDS ORDERED: D50W (25GM) Syringe IV PRN (22:06)
[2018-07-22 23:41] LABS: Creatine Kinase MB 2.2 ng/mL (0.0-4.0)
[2018-07-22] MEDS: LOPRESSOR PO SCH (23:58)
[2018-07-22] MEDS: SODIUM CHLORIDE FLUSH SYRINGE 10 ML IV SCH (23:58)
[2018-07-23 07:25] LABS: BUN/Creatinine Ratio 12; Basophils % (Auto) 0.9 % (0.0-1.8); Blood Urea Nitrogen 6 mg/dL (7-17); Calcium 8.5 mg/dL (8.4-10.2); Creatine Kinase MB 2.5 ng/mL (0.0-4.0); Eosinophils # (Auto) 0.2 K/mm3 (0.0-0.4); Eosinophils % (Auto) 3.6 % (0.0-4.3); Hematocrit 43.8 % (30.3-42.9); Hemoglobin 13.8 gm/dl (10.1-14.3); Hemolysis Index 9; Lymphocytes # (Auto) 1.1 K/mm3 (1.2-5.4); Lymphocytes % (Auto) 26.2 % (13.4-35.0); Mean Corpuscular HGB Conc 32 % (30-34); Mean Corpuscular Volume 91 fl (79-97); Monocytes # (Auto) 0.6 K/mm3 (0.0-0.8); Monocytes % (Auto) 15.2 % (0.0-7.3); Platelet Count 320 K/mm3 (140-440); Red Blood Count 4.83 M/mm3 (3.65-5.03); Red Cell Distribution Width 16.8 % (13.2-15.2)
[2018-07-23] MEDS: LASIX IV SCH ×2 (07:30→17:46)
[2018-07-23] MEDS: LOVENOX SUB-Q SCH (09:38)
[2018-07-23] MEDS: LOPRESSOR PO SCH ×3 (09:39→22:11)
[2018-07-23] MEDS: BABY ASPIRIN PO SCH (09:41)
[2018-07-23] MEDS: SODIUM CHLORIDE FLUSH SYRINGE 10 ML IV SCH ×2 (09:41→22:11)
[2018-07-23] MEDS ORDERED: ZESTRIL PO SCH (10:00)
--- NOTE | 2018-07-23 10:42 | Consultation ---
History of Present Illness Consult date: 07/23/18 Requesting physician: RAUL MADSEN Consult reason: congestive heart failure History of present illness: Patient is a 63 y/o female with a history signficant for HFrEF (EF 35-40%), hypertension, diabetes and morbid obesity who presented to the PS[facility] ED with shortness of breath and generalized edema. She was hospitalized in March for similar symptoms, but reports she did not take any of the medica tions prescribed to her since discharge because she was unable to follow-up with her providers. She is a poor historian, and unable to recall which providers she has seen or was scheduled to see. She states she is supposed to wear oxygen at home, but only does so intermittently. A CXR on 07/22/18 found hyperinflated lungs and mild cardiomegaly, but visualization otherwise was poor. A BNP was 3049 and troponins were mildly elevated x2. An echocardiogram on 03/22/18 found an EF of 35-40%, [id number] LVH and [id number] TR. Past History Past Medical History: diabetes, heart failure, hypertension, other (morbid obesity) Medications and Allergies Allergies Allergy/AdvReac Type Severity Reaction Status Date / Time No Known Allergies Allergy Unverified 03/22/18 15:11 Home Medications Medication Instructions Recorded Confirmed Last Taken Type Carvedilol [Coreg] 6.25 mg PO BID #60 tablet 03/26/18 Unknown Rx Furosemide [Lasix TAB] 40 mg PO BID #60 tablet 03/26/18 Unknown Rx Lisinopril [Zestril TAB] 5 mg PO QDAY #30 tablet 03/26/18 Unknown Rx Potassium Chloride [K-Dur] 20 meq PO Q12H #60 tablet 03/26/18 Unknown Rx Active Meds: Active Medications Acetaminophen (Tylenol) 650 mg PO Q4H PRN PRN Reason: Pain MILD(1-3)/Fever >100.5/[place] Aspirin (Baby Aspirin) 81 mg PO QDAY [facility] Last Admin: 07/23/18 09:41 Dose: 81 mg Documented by: Dextrose (D50w (25gm) Syringe) 50 ml IV PRN PRN PRN Reason: Hypoglycemia Enoxaparin Sodium (Lovenox) 40 mg SUB-Q QDAY [facility] Last Admin: 07/23/18 09:38 Dose: 40 mg Documented by: Furosemide (Lasix) 40 mg IV BID@0600,1800 [facility] Last Admin: 07/23/18 07:30 Dose: 40 mg Documented by: Lisinopril (Zestril) 2.5 mg PO QDAY [facility] Last Admin: 07/23/18 09:41 Dose: 2.5 mg Documented by: Metoprolol Tartrate (Lopressor) 25 mg PO BID [facility] Last Admin: 07/23/18 09:39 Dose: 25 mg Documented by: Ondansetron HCl (Zofran) 4 mg IV Q8H PRN PRN Reason: Nausea And Vomiting Pneumococcal Polyvalent Vaccine (Pneumovax 23) 0.5 ml IM .ONCE ONE Stop: 07/23/18 12:01 Sodium Chloride (Sodium Chloride Flush Syringe 10 Ml) 10 ml IV BID [facility] Last Admin: 07/23/18 09:41 Dose: 10 ml Documented by: Sodium Chloride (Sodium Chloride Flush Syringe 10 Ml) 10 ml IV PRN PRN PRN Reason: LINE FLUSH Review of Systems Cardiovascular: shortness of breath, dyspnea on exertion, paroxysmal nocturnal dyspnea, leg edema Gastrointestinal: other (distension) Physical Examination Last Vital Signs Temp 97.3 F L 07/23/18 07:57 Pulse 100 H 07/23/18 09:39 Resp 22 07/23/18 08:35 BP 147/89 07/23/18 09:41 Pulse Ox 96 07/23/18 07:55 General appearance: mild distress Cardiac: Positive: Regular Rhythm, Tachycardia Abdomen: Positive: Distended Extremities: Present: +1 Edema, warm Results 07/23/18 07:24 07/22/18 19:35 Cardiac Enzymes 07/22/18 07/22/18 07/22/18 Range/Units 19:35 19:36 23:14 AST 22 (5-40) units/L CK-MB (CK-2) 2.3 2.2 (0.0-4.0) ng/mL Coagulation 07/22/18 Range/Units 19:35 PT 15.5 H (12.2-14.9) Sec. INR 1.16 H (0.87-1.13) APTT 34.6 (24.2-36.6) Sec. CBC 07/22/18 07/23/18 Range/Units 19:25 07:24 WBC 4.7 4.2 L (4.5-11.0) K/mm3 RBC 5.07 H 4.83 (3.65-5.03) M/mm3 Hgb 14.4 H 13.8 (10.1-14.3) gm/dl Hct 45.9 H 43.8 H (30.3-42.9) % Plt Count 340 320 (140-440) K/mm3 Lymph # 1.2 1.1 L (1.2-5.4) K/mm3 [place] # 0.6 0.6 (0.0-0.8) K/mm3 Eos # 0.1 0.2 (0.0-0.4) K/mm3 Baso # 0.0 0.0 (0.0-0.1) K/mm3 Comprehensive Metabolic Panel 07/22/18 Range/Units 19:35 Sodium 140 (137-145) mmol/L Potassium 4.4 (3.6-5.0) mmol/L Chloride 94.4 L (98-107) mmol/L Carbon Dioxide 35 H (22-30) mmol/L BUN 5 L (7-17) mg/dL Creatinine 0.5 L (0.7-1.2) mg/dL Glucose 118 H (65-100) mg/dL Calcium 8.9 (8.4-10.2) mg/dL AST 22 (5-40) units/L ALT 10 (7-56) units/L Alkaline Phosphatase 69 (35-129) units/L Total Protein 8.3 H (6.3-8.2) g/dL Albumin 3.3 L (3.9-5) g/dL - Imaging and Cardiology Echo: report reviewed (03/22/18: EF 35-40%, [id number] LVH, [id number] TR) EKG: report reviewed (sinus tachycardia, RBBB) EKG interpretations - Telemetry EKG Rhythm: Sinus Tachycardia - EKG Sinus rhythms and dysrhythmias: sinus tachycardia AV and intraventricular conduction: right bundle branch block Assessment and Plan Patient is a 63 y/o female admitted with worsening SOB and edema who reports noncompliance with medication regimen. Agree with diuresis. Resume previously prescribed cardiac medications, which include lisinopril and metoprolol. Will increase lisinopril and metoprolol given elevated BP and tachycardia. Consider ischemic workup when optimized. Recommend pulmonology consult to evaluate for any contributory lung disease. Patient was seen in conjunction with Dr. Kevin Gooden, who agrees with assessment and plan. - Patient Problems (1) Acute respiratory failure with hypoxia Current Visit: Yes Status: Acute (2) CHF exacerbation Current Visit: Yes Status: Acute (3) Edema Current Visit: Yes Status: Acute (4) Cardiomyopathy Current Visit: Yes Status: Chronic (5) Elevated troponin Current Visit: Yes Status: Acute (6) Noncompliance with medication regimen Current Visit: Yes Status: Chronic (7) Obesity Current Visit: Yes Status: Chronic (8) Uncontrolled hypertension Current Visit: Yes Status: Chronic
[2018-07-23] MEDS ORDERED: AFLURIA QUAD 2018-2019 SYRINGE IM ONE (12:00)
[2018-07-23] MEDS ORDERED: PNEUMOVAX 23 IM ONE (12:00)
[2018-07-23] MEDS: ZESTRIL PO SCH (13:00)
--- NOTE | 2018-07-23 15:57 | Progress Note ---
Assessment and Plan Assessment and plan: Patient is a 63 yo woman with a history of CHF, EF of 35%, hypertension, diabetes mellitus and morbid obesity who presents with sob. * pCXR IMPRESSION: COPD Left lower lung and left costophrenic angle are obscured by the cardiac shadow. Any underlying infiltrates and left pleural effusion cannot be excluded. 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 Follow-up on current diagnosis of CHF, respiratory failure on 3 Liters. No overnight events reported to me. Patient denies any chest pain, nausea/vomiting or severe headaches. Imaging, nursing note, chart, labs and old chart reviewed. Discussed with patient. Hospitalist Physical - Physical exam Narrative exam: Gen: WDWN, NAD, Awake, Alert, Orientated x 3,morbid obese bmi 59.2 HEENT: NCAT, EOMI, PERRL, OP Clear Neck: supple, no adenopathy, no thyromegaly, no JVD CVS/Heart: RRR, normal S1S2, pulses present bilaterally Chest/Lungs: diminished bd bilateral, Symmetrical chest expansion, good air entry bilaterally GI/Abdomen: soft, NTND, good bowel sounds, no guarding or rebound /Bladder: no suprapubic tenderness, no CVA or paraspinal tenderness Extermity/Skin: no c/c/e, no obvious rash MSK: FROM x 4 Neuro: CN 2-12 grossly intact, no new focal deficits Psych: calm - Constitutional Vitals: Temp Pulse Resp BP Pulse Ox 97.9 F 81 18 161/19 88 07/23/18 11:30 07/23/18 11:30 07/23/18 11:30 07/23/18 13:00 07/23/18 11:30 General appearance: Absent: mild distress Results - Labs CBC & Chem 7: 07/23/18 07:24 07/23/18 07:24 Labs: Laboratory Last Values WBC 4.2 K/mm3 (4.5-11.0) L 07/23/18 07:24 RBC 4.83 M/mm3 (3.65-5.03) 07/23/18 07:24 Hgb 13.8 gm/dl (10.1-14.3) 07/23/18 07:24 Hct 43.8 % (30.3-42.9) H 07/23/18 07:24 MCV 91 fl (79-97) 07/23/18 07:24 MCH 29 pg (28-32) 07/23/18 07:24 MCHC 32 % (30-34) 07/23/18 07:24 RDW 16.8 % (13.2-15.2) H 07/23/18 07:24 Plt Count 320 K/mm3 (140-440) 07/23/18 07:24 Lymph % (Auto) 26.2 % (13.4-35.0) 07/23/18 07:24 [place] % (Auto) 15.2 % (0.0-7.3) H 07/23/18 07:24 Eos % (Auto) 3.6 % (0.0-4.3) 07/23/18 07:24 Baso % (Auto) 0.9 % (0.0-1.8) 07/23/18 07:24 Lymph # 1.1 K/mm3 (1.2-5.4) L 07/23/18 07:24 [place] # 0.6 K/mm3 (0.0-0.8) 07/23/18 07:24 Eos # 0.2 K/mm3 (0.0-0.4) 07/23/18 07:24 Baso # 0.0 K/mm3 (0.0-0.1) 07/23/18 07:24 Seg Neutrophils % 54.1 % (40.0-70.0) 07/23/18 07:24 Seg Neutrophils # 2.3 K/mm3 (1.8-7.7) 07/23/18 07:24 PT 15.5 Sec. (12.2-14.9) H 07/22/18 19:35 INR 1.16 (0.87-1.13) H 07/22/18 19:35 APTT 34.6 Sec. (24.2-36.6) 07/22/18 19:35 Sodium 142 mmol/L (137-145) 07/23/18 07:24 Potassium 3.8 mmol/L (3.6-5.0) 07/23/18 07:24 Chloride 95.1 mmol/L (98-107) L 07/23/18 07:24 Carbon Dioxide 37 mmol/L (22-30) H 07/23/18 07:24 14 mmol/L 07/23/18 07:24 BUN 6 mg/dL (7-17) L 07/23/18 07:24 0.5 mg/dL (0.7-1.2) L 07/23/18 07:24 Estimated GFR > 60 ml/min 07/23/18 07:24 12 % 07/23/18 07:24 Glucose 148 mg/dL (65-100) H 07/23/18 07:24 POC Glucose 119 (70-105) H 07/23/18 11:46 Calcium 8.5 mg/dL (8.4-10.2) 07/23/18 07:24 0.70 mg/dL (0.1-1.2) 07/22/18 19:35 AST 22 units/L (5-40) 07/22/18 19:35 ALT 10 units/L (7-56) 07/22/18 19:35 69 units/L (35-129) 07/22/18 19:35 90 units/L (30-135) 07/23/18 07:24 CK-MB (CK-2) 2.5 ng/mL (0.0-4.0) 07/23/18 07:24 CK-MB (CK-2) Rel Index 2.7 (0-4) 07/23/18 07:24 0.019 ng/mL (0.00-0.029) 07/23/18 07:24 NT-Pro-B Natriuret Pep 3049 pg/mL (0-900) H 07/22/18 19:36 8.3 g/dL (6.3-8.2) H 07/22/18 19:35 3.3 g/dL (3.9-5) L 07/22/18 19:35 0.7 % 07/22/18 19:35 Active Medications - Current Medications Current Medications: Generic Name Dose Route Start Last Admin Trade Name Freq PRN Reason Stop Dose Admin Acetaminophen 650 mg 07/22/18 21:59 Tylenol PO Q4H PRN Pain MILD(1-3)/Fever >100.5/KIMBALL Aspirin 81 mg 07/23/18 10:00 07/23/18 09:41 Baby Aspirin PO 81 mg QDAY DANIEL Administration Dextrose 50 ml 07/22/18 22:06 D50w (25gm) Syringe IV PRN PRN Hypoglycemia Enoxaparin Sodium 40 mg 07/23/18 10:00 07/23/18 09:38 Lovenox SUB-Q 40 mg QDAY DANIEL Administration Furosemide 40 mg 07/23/18 06:00 07/23/18 07:30 Lasix IV 40 mg BID@0600,1800 DANIEL Administration Lisinopril 5 mg 07/23/18 12:00 07/23/18 13:00 Zestril PO 5 mg QDAY DANIEL Administration Metoprolol Tartrate 50 mg 07/23/18 12:00 07/23/18 13:00 Lopressor PO 50 mg BID DANIEL Administration Ondansetron HCl 4 mg 07/22/18 21:59 Zofran IV Q8H PRN Nausea And Vomiting Sodium Chloride 10 ml 07/22/18 22:00 07/23/18 09:41 Sodium Chloride Flush Syringe 10 Ml IV 10 ml BID DANIEL Administration Sodium Chloride 10 ml 07/22/18 21:59 Sodium Chloride Flush Syringe 10 Ml IV PRN PRN LINE FLUSH Nutrition/Malnutrition Assess - Dietary Evaluation Nutrition/Malnutrition Findings: Nutrition Notes Start: 07/23/18 15:03 Freq: Status: Active Protocol: Document 07/23/18 15:03 (Rec: 07/23/18 15:11 [id number]) Nutrition Notes Need for Assessment generated from: [facility] Initial or Follow up Assessment Current Diagnosis Diabetes,Hypertension,Heart Failure Other Pertinent Diagnosis Obesity, Noncompliant, Lower extremity edema Current Diet Cardiac/Consistent CHO Labs/Tests Reviewed Pertinent Medications Lasix Height 5 ft 3 in Weight 151.5 kg Usual Body Weight 131.8 kg [place] Body Weight (kg) 52.27 BMI 59.1 Subjective/Other Information Screened for malnutrition, chewing difficulty, and skin risk. Ben 19 points. 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 Admitted to some chewing difficulty d/t missing top dentures. Stated UBW is 290 lbs. Per Hx and physical pt has swelling all over. Pt requested DM diet education for tomorrow. No temporal or orbital wasting noted. 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 No Is Patient Ambulatory and/or Out of Bed Yes REE-([facility]-ambulatory/OOB) [ 2663.869 NUTR.MSJOOB] Kcal/Kg value to use for calculation 14 Approximate Energy Requirements Using 2121 kcal/Kg Calculation Used for Recommendations Kcal/kg Additional Notes Protein Needs: 82-102g (0.8-1g /kg 102kg adjBW) Fluid Needs: 1 ml/kcal Nutrition Intervention Change Diet Order: Cardiac/Consistent CHO, Mech soft w/ground meat Add Supplement/Snack (indicate name/kcal Glucerna 1 daily /protein ) Provides kCal: 220 Provides Protein (gm) 10 Goal #1 Meet at least 75% of calorie and protein needs via PO and ONS intakes Anticipated Discharge Needs: Cardiac/Consistent CHO diet Follow-Up By: 07/24/18 Additional Comments Follow for PO intakes DM diet education
[2018-07-24 06:20] LABS: Hematocrit 43.3 % (30.3-42.9); Hemoglobin 13.7 gm/dl (10.1-14.3); Mean Corpuscular HGB Conc 32 % (30-34); Mean Corpuscular Volume 90 fl (79-97); Platelet Count 288 K/mm3 (140-440); Red Blood Count 4.82 M/mm3 (3.65-5.03); Red Cell Distribution Width 17.4 % (13.2-15.2)
[2018-07-24] MEDS: LASIX IV SCH ×2 (06:34→17:58)
[2018-07-24 06:45] LABS: BUN/Creatinine Ratio 18; Blood Urea Nitrogen 7 mg/dL (7-17); Calcium 8.5 mg/dL (8.4-10.2); Hemolysis Index 37
[2018-07-24] MEDS: ZESTRIL PO SCH (08:59)
[2018-07-24] MEDS: BABY ASPIRIN PO SCH (09:00)
[2018-07-24] MEDS: LOPRESSOR PO SCH ×2 (09:00→21:43)
[2018-07-24] MEDS: LOVENOX SUB-Q SCH (09:01)
[2018-07-24] MEDS: SODIUM CHLORIDE FLUSH SYRINGE 10 ML IV SCH ×2 (09:03→21:44)
--- NOTE | 2018-07-24 12:29 | Progress Note ---
Assessment and Plan Patient improving with diuresis and her prescribed home medications. She has poor comprehension of her illness. Repeatedly discussed with patient the nature of her disease and the importance of complying with her medication regimen. Recommend pulmonary consultation to evaluate for possible contributory lung disease and the need for home oxygen, which patient states she has, but does not clearly state whether she uses it. Continue current cardiac management and will consider ischemic evaluation once she is optimized. Patient has been seen in conjunction with Dr. Kevin Gooden, who agrees with assessment and plan. - Patient Problems (1) Acute respiratory failure with hypoxia Current Visit: Yes Status: Acute (2) CHF exacerbation Current Visit: Yes Status: Acute (3) Edema Current Visit: Yes Status: Acute (4) Cardiomyopathy Current Visit: Yes Status: Chronic (5) Elevated troponin Current Visit: Yes Status: Acute (6) Noncompliance with medication regimen Current Visit: Yes Status: Chronic (7) Obesity Current Visit: Yes Status: Chronic (8) Uncontrolled hypertension Current Visit: Yes Status: Chronic Subjective Date of service: 07/24/18 Interval history: Patient lying in bed in NAD. C/O swelling and tightness in belly and legs. On 3L supplemental oxygen. Objective Last Vital Signs Temp 98.1 F 07/24/18 07:41 Pulse 80 07/24/18 09:00 Resp 18 07/24/18 07:41 BP 136/67 07/24/18 09:00 Pulse Ox 99 07/24/18 08:38 - Physical Examination Narrative exam: Patient in less distress on examination this AM, but edema in legs and belly persists. General: No Apparent Distress Neck: Positive: neck supple Cardiac: Positive: Reg Rate and Rhythm Lungs: Positive: Decreased Breath Sounds Abdomen: Positive: Distended Skin: Positive: Clear Extremities: Present: +1 Edema, warm - Labs and Meds CBC 07/24/18 Range/Units 06:07 WBC 3.5 L (4.5-11.0) K/mm3 RBC 4.82 (3.65-5.03) M/mm3 Hgb 13.7 (10.1-14.3) gm/dl Hct 43.3 H (30.3-42.9) % Plt Count 288 (140-440) K/mm3 Comprehensive Metabolic Panel 07/24/18 Range/Units 06:07 Sodium 140 (137-145) mmol/L Potassium 4.1 (3.6-5.0) mmol/L Chloride 94.3 L (98-107) mmol/L Carbon Dioxide 34 H (22-30) mmol/L BUN 7 (7-17) mg/dL Creatinine 0.4 L (0.7-1.2) mg/dL Glucose 149 H (65-100) mg/dL Calcium 8.5 (8.4-10.2) mg/dL - Imaging and Cardiology EKG: report reviewed (sinus tachycardia, RBBB) Echo: report reviewed (03/22/18: EF 35-40%, [id number] LVH, [id number] TR) - Telemetry EKG Rhythm: Sinus Rhythm - EKG Sinus rhythms and dysrhythmias: sinus tachycardia AV and intraventricular conduction: right bundle branch block
[2018-07-24] MEDS ORDERED: MAGNESIUM SULFATE 4GM/100ML 4 GM/100 ML BAG IV ONE (14:00)
--- NOTE | 2018-07-24 16:13 | Progress Note ---
Assessment and Plan Assessment and plan: Patient is a 63 yo woman with a history of CHF, EF of 35%, hypertension, diabetes mellitus and morbid obesity who presents with sob. * pCXR IMPRESSION: COPD Left lower lung and left costophrenic angle are obscured by the cardiac shadow. Any underlying infiltrates and left pleural effusion cannot be excluded. 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 Follow-up on current diagnosis of CHF, respiratory failure on 3 Liters. No overnight events reported to me. Patient d enies any chest pain, nausea/vomiting or severe headaches. Imaging, nursing note, chart, labs and old chart reviewed. Discussed with patient. Hospitalist Physical - Physical exam Narrative exam: Gen: WDWN, NAD, Awake, Alert, Orientated x 3,morbid obese bmi 59.2 HEENT: NCAT, EOMI, PERRL, OP Clear Neck: supple, no adenopathy, no thyromegaly, no JVD CVS/Heart: RRR, normal S1S2, pulses present bilaterally Chest/Lungs: diminished bd bilateral, Symmetrical chest expansion, good air entry bilaterally GI/Abdomen: soft, NTND, good bowel sounds, no guarding or rebound /Bladder: no suprapubic tenderness, no CVA or paraspinal tenderness Extermity/Skin: no c/c/e, no obvious rash MSK: FROM x 4 Neuro: CN 2-12 grossly intact, no new focal deficits Psych: calm - Constitutional Vitals: Temp Pulse Resp BP Pulse Ox 98.1 F 72 18 115/63 92 07/24/18 12:01 07/24/18 12:01 07/24/18 12:01 07/24/18 12:01 07/24/18 12:01 General appearance: Absent: mild distress Results - Labs CBC & Chem 7: 07/24/18 06:07 07/24/18 06:07 Labs: Laboratory Last Values WBC 3.5 K/mm3 (4.5-11.0) L 07/24/18 06:07 RBC 4.82 M/mm3 (3.65-5.03) 07/24/18 06:07 Hgb 13.7 gm/dl (10.1-14.3) 07/24/18 06:07 Hct 43.3 % (30.3-42.9) H 07/24/18 06:07 MCV 90 fl (79-97) 07/24/18 06:07 MCH 28 pg (28-32) 07/24/18 06:07 MCHC 32 % (30-34) 07/24/18 06:07 RDW 17.4 % (13.2-15.2) H 07/24/18 06:07 Plt Count 288 K/mm3 (140-440) 07/24/18 06:07 Lymph % (Auto) 26.2 % (13.4-35.0) 07/23/18 07:24 [place] % (Auto) 15.2 % (0.0-7.3) H 07/23/18 07:24 Eos % (Auto) 3.6 % (0.0-4.3) 07/23/18 07:24 Baso % (Auto) 0.9 % (0.0-1.8) 07/23/18 07:24 Lymph # 1.1 K/mm3 (1.2-5.4) L 07/23/18 07:24 [place] # 0.6 K/mm3 (0.0-0.8) 07/23/18 07:24 Eos # 0.2 K/mm3 (0.0-0.4) 07/23/18 07:24 Baso # 0.0 K/mm3 (0.0-0.1) 07/23/18 07:24 Seg Neutrophils % 54.1 % (40.0-70.0) 07/23/18 07:24 Seg Neutrophils # 2.3 K/mm3 (1.8-7.7) 07/23/18 07:24 PT 15.5 Sec. (12.2-14.9) H 07/22/18 19:35 INR 1.16 (0.87-1.13) H 07/22/18 19:35 APTT 34.6 Sec. (24.2-36.6) 07/22/18 19:35 Sodium 140 mmol/L (137-145) 07/24/18 06:07 Potassium 4.1 mmol/L (3.6-5.0) 07/24/18 06:07 Chloride 94.3 mmol/L (98-107) L 07/24/18 06:07 Carbon Dioxide 34 mmol/L (22-30) H 07/24/18 06:07 16 mmol/L 07/24/18 06:07 BUN 7 mg/dL (7-17) 07/24/18 06:07 0.4 mg/dL (0.7-1.2) L 07/24/18 06:07 Estimated GFR > 60 ml/min 07/24/18 06:07 18 % 07/24/18 06:07 Glucose 149 mg/dL (65-100) H 07/24/18 06:07 POC Glucose 143 (70-105) H 07/24/18 11:49 Calcium 8.5 mg/dL (8.4-10.2) 07/24/18 06:07 Magnesium 1.40 mg/dL (1.7-2.3) L 07/24/18 06:07 0.70 mg/dL (0.1-1.2) 07/22/18 19:35 AST 22 units/L (5-40) 07/22/18 19:35 ALT 10 units/L (7-56) 07/22/18 19:35 69 units/L (35-129) 07/22/18 19:35 90 units/L (30-135) 07/23/18 07:24 CK-MB (CK-2) 2.5 ng/mL (0.0-4.0) 07/23/18 07:24 CK-MB (CK-2) Rel Index 2.7 (0-4) 07/23/18 07:24 0.019 ng/mL (0.00-0.029) 07/23/18 07:24 NT-Pro-B Natriuret Pep 3049 pg/mL (0-900) H 07/22/18 19:36 8.3 g/dL (6.3-8.2) H 07/22/18 19:35 3.3 g/dL (3.9-5) L 07/22/18 19:35 0.7 % 07/22/18 19:35 Active Medications - Current Medications Current Medications: Generic Name Dose Route Start Last Admin Trade Name Freq PRN Reason Stop Dose Admin Acetaminophen 650 mg 07/22/18 21:59 Tylenol PO Q4H PRN Pain MILD(1-3)/Fever >100.5/KIM[place]ALL Aspirin 81 mg 07/23/18 10:00 07/24/18 09:00 Baby Aspirin PO 81 mg QDAY DANIEL Administration Dextrose 50 ml 07/22/18 22:06 D50w (25gm) Syringe IV PRN PRN Hypoglycemia Enoxaparin Sodium 40 mg 07/23/18 10:00 07/24/18 09:01 Lovenox SUB-Q 40 mg QDAY DANIEL Administration Furosemide 40 mg 07/23/18 06:00 07/24/18 06:34 Lasix IV 40 mg BID@0600,1800 DANIEL Administration Magnesium Sulfate 4 gm in 100 mls @ 25 mls/hr 07/24/18 14:00 07/24/18 15:36 Magnesium Sulfate 4gm/100ml IV 07/24/18 17:59 25 mls/hr ONCE ONE Administration Magnesium Sulfate 2 gm in 50 mls @ 25 mls/hr 07/24/18 16:57 Magnesium Sulfate 2gm/50ml IV 07/24/18 18:56 ONCE ONE Lisinopril 5 mg 07/23/18 12:00 07/24/18 08:59 Zestril PO 5 mg QDAY DANIEL Administration Metoprolol Tartrate 50 mg 07/23/18 12:00 07/24/18 09:00 Lopressor PO 50 mg BID DANIEL Administration Ondansetron HCl 4 mg 07/22/18 21:59 Zofran IV Q8H PRN Nausea And Vomiting Sodium Chloride 10 ml 07/22/18 22:00 07/24/18 09:03 Sodium Chloride Flush Syringe 10 Ml IV 10 ml BID DANIEL Administration Sodium Chloride 10 ml 07/22/18 21:59 Sodium Chloride Flush Syringe 10 Ml IV PRN PRN LINE FLUSH Nutrition/Malnutrition Assess - Dietary Evaluation Nutrition/Malnutrition Findings: Nutrition Notes Start: 07/23/18 15:03 Freq: Status: Active Protocol: Document 07/24/18 14:55 RM (Rec: 07/24/18 15:02 RM [id number]) Nutrition Notes Initial or Follow up Reassessment Current Diagnosis Diabetes,Hypertension,Heart Failure Other Pertinent Diagnosis Obesity, Noncompliant, Lower extremity edema Current Diet Cardiac/Consistent CHO Labs/Tests Reviewed Pertinent Medications Lasix Height 5 ft 3 in Weight 154.5 kg [place] Body Weight (kg) 52.27 BMI 60.3 Subjective/Other Information Pt stated that she ate all of her lunch and drank the Glucerna. Reviewed DM and CHF diet education. Gave handouts. Percent of energy/protein needs met: 100%/100% #2 Nutrition Diagnosis Food and nutrition-related knowledge deficit Etiology lack of prior education As Evidenced by Signs and Symptoms no prior knowledge of need for food and nutrition recommendations #1 Nutrition Diagnosis Malnutrition Diagnosis Progress(for reassessment Continues documentation) Is patient on ventilator? No Is Patient Ambulatory and/or Out of Bed Yes REE-([place]-ambulatory/OOB) [ 2702.869 NUTR.MSJOOB] Kcal/Kg value to use for calculation 14 Approximate Energy Requirements Using 2163 kcal/Kg Calculation Used for Recommendations Kcal/kg Additional Notes Protein Needs: 82-102g (0.8-1g /kg 102kg adjBW) Fluid Needs: 1 ml/kcal Nutrition Intervention Change Diet Order: Cardiac/Consistent CHO, Mech soft w/ground meat Add Supplement/Snack (indicate name/kcal Glucerna 1 daily /protein ) Provides kCal: 220 Provides Protein (gm) 10 Teaching Recipient Patient Learning Readiness Good Teaching Methods Discussion,Handout Response to Teaching Verbalize understanding Education Handouts Provided Carbohydrate Counting for People with Diabetes, Heart Failure Nutrition Therapy Barriers to Learning No Barriers RD phone number provided Yes Patient aware of follow up options Yes Goal #1 Continue to meet at least 75% of calorie and protein needs via PO and ONS intakes Follow-Up By: 07/26/18 Additional Comments Follow for stable intakes
[2018-07-24] MEDS ORDERED: MAGNESIUM SULFATE 2GM/50ML 2 GM/50 ML BAG IV ONE (16:57)
[2018-07-24] MEDS: TYLENOL PO PRN (18:28)
--- NOTE | 2018-07-24 19:22 | Consultation ---
History of Present Illness Consult date: 07/24/18 Reason for consult: dyspnea History of present illness: PULMONARY AND CRITICAL CARE CONSULTATION. DR. BRYANT THANK YOU FOR ASKING US TO PARTICIPATE IN THE CARE OF THIS PATIENT. 63-year-old female with a past medical history morbid obesity, CHF, and hypertension, DM presents from a primary care doctor office with complaints of shortness of breath. Patient had a scheduled revisit. Patient states he is having similar symptoms that she was having when she was admitted here in [facility] for newly diagnosed CHF. Patient states when her prescriptions ran out from her March admission she did not continue the medication because there were no refills she did not understand that she was supposed to follow-up with her doctor for additional medication. She complains of worsening orthopnea, PND, dyspnea on exertion and occasional dry cough. She denies any chest pain. She cannot recall the name of her primary care doctor. As per medical record ejection fraction 35-40% on March 2018 ECHO Patient morbidly Obese, Awake. Patient presently on 3 litres O2.O2 saturation 98%. No acute respiratory distress at this time. Patient has history of smoking 1 pack/ 2 weeks for 20 years. Stopped smoking in year 2013. Denies alcohol or drug abuse. Patient single. No children. Past History Past Medical History: diabetes, heart failure, hypertension, other (morbid obesity) Medications and Allergies Allergies Allergy/AdvReac Type Severity Reaction Status Date / Time Cheese AdvReac Nausea Uncoded 07/23/18 15:23 Peanut butter AdvReac Nausea Uncoded 07/23/18 15:22 Home Medications Medication Instructions Recorded Confirmed Last Taken Type Carvedilol [Coreg] 6.25 mg PO BID #60 tablet 03/26/18 Unknown Rx Furosemide [Lasix TAB] 40 mg PO BID #60 tablet 03/26/18 Unknown Rx Lisinopril [Zestril TAB] 5 mg PO QDAY #30 tablet 03/26/18 Unknown Rx Potassium Chloride [K-Dur] 20 meq PO Q12H #60 tablet 03/26/18 Unknown Rx Active Meds: Active Medications Acetaminophen (Tylenol) 650 mg PO Q4H PRN PRN Reason: Pain MILD(1-3)/Fever >100.5/KIMBALL Last Admin: 07/24/18 18:28 Dose: 650 mg Documented by: Aspirin (Baby Aspirin) 81 mg PO QDAY [facility] Last Admin: 07/24/18 09:00 Dose: 81 mg Documented by: Dextrose (D50w (25gm) Syringe) 50 ml IV PRN PRN PRN Reason: Hypoglycemia Enoxaparin Sodium (Lovenox) 40 mg SUB-Q QDAY [facility] Last Admin: 07/24/18 09:01 Dose: 40 mg Documented by: Furosemide (Lasix) 40 mg IV BID@0600,1800 [facility] Last Admin: 07/24/18 17:58 Dose: 40 mg Documented by: Lisinopril (Zestril) 5 mg PO QDAY [facility] Last Admin: 07/24/18 08:59 Dose: 5 mg Documented by: Metoprolol Tartrate (Lopressor) 50 mg PO BID [facility] Last Admin: 07/24/18 09:00 Dose: 50 mg Documented by: Ondansetron HCl (Zofran) 4 mg IV Q8H PRN PRN Reason: Nausea And Vomiting Sodium Chloride (Sodium Chloride Flush Syringe 10 Ml) 10 ml IV BID [facility] Last Admin: 07/24/18 09:03 Dose: 10 ml Documented by: Sodium Chloride (Sodium Chloride Flush Syringe 10 Ml) 10 ml IV PRN PRN PRN Reason: LINE FLUSH Review of Systems All systems: negative Physical Examination Vital signs: Vital Signs Temp Pulse Resp BP Pulse Ox 97.9 F 106 H 16 176/116 95 07/22/18 17:40 07/22/18 17:40 07/22/18 17:40 07/22/18 17:40 07/22/18 17:40 General appearance: no acute distress, alert Eyes: non-icteric Neck: supple, no JVD Ascultation: Bilateral: diminished breath sounds Cardiovascular: regular rate and rhythm Gastrointestinal: normoactive bowel sounds, soft, non-tender Integumentary: normal Extremities: no cyanosis, no edema Musculoskeletal: no deformities Gait: poor gait normal mental status, non-focal exam, pupils equal and round, CN II-XII normal mood appropriate Results - Laboratory Findings CBC and BMP: 07/24/18 06:07 07/24/18 06:07 PT/INR, D-dimer PT 15.5 Sec. (12.2-14.9) H 07/22/18 19:35 INR 1.16 (0.87-1.13) H 07/22/18 19:35 Abnormal lab findings: Abnormal Labs 07/22/18 07/22/18 07/22/18 19:25 19:35 19:35 WBC RBC 5.07 H Hgb 14.4 H Hct 45.9 H RDW 17.2 H [place] % (Auto) 13.1 H Lymph # PT 15.5 H INR 1.16 H Chloride 94.4 L Carbon Dioxide 35 H BUN 5 L Creatinine 0.5 L Glucose 118 H POC Glucose Magnesium NT-Pro-B Natriuret Pep Total Protein 8.3 H Albumin 3.3 L 07/22/18 07/23/18 07/23/18 19:36 07:24 07:24 WBC 4.2 L RBC Hgb Hct 43.8 H RDW 16.8 H [place] % (Auto) 15.2 H Lymph # 1.1 L PT INR Chloride 95.1 L Carbon Dioxide 37 H BUN 6 L Creatinine 0.5 L Glucose 148 H POC Glucose Magnesium NT-Pro-B Natriuret Pep 3049 H Total Protein Albumin 07/23/18 07/24/18 07/24/18 11:46 06:07 06:07 WBC 3.5 L RBC Hgb Hct 43.3 H RDW 17.4 H [place] % (Auto) Lymph # PT INR Chloride 94.3 L Carbon Dioxide 34 H BUN Creatinine 0.4 L Glucose 149 H POC Glucose 119 H Magnesium 1.40 L NT-Pro-B Natriuret Pep Total Protein Albumin 07/24/18 07/24/18 08:06 11:49 WBC RBC Hgb Hct RDW [place] % (Auto) Lymph # PT INR Chloride Carbon Dioxide BUN Creatinine Glucose POC Glucose 115 H 143 H Magnesium NT-Pro-B Natriuret Pep Total Protein Albumin - Diagnostic Findings Chest x-ray: report reviewed (LEFT LOWER LOBE IN FILTRATE AND EFFUSIN CAN NOT RULED OUT.), image reviewed Assessment and Plan 63-year-old female with a past medical history morbid obesity, CHF, and hypertension presents from a primary care doctor office with complaints of shortness of breath. Patient had a scheduled revisit. Patient states he is having similar symptoms that she was having when she was admitted here in March for newly diagnosed CHF. Patient states when her prescriptions ran out from her March admission she did not continue the medication because there were no refills she did not understand that she was supposed to follow-up with her doctor for additional medication. She complains of worsening orthopnea, PN D, dyspnea on exertion and occasional dry cough. She denies any chest pain. She cannot recall the name of her primary care doctor. As per medical record ejection fraction 35-40% on March 2018 ECHO Patient morbidly Obese, Awake. Patient presently on 3 litres O2.O2 saturation 98%. No acute respiratory distress at this time. Patient has history of smoking 1 pack/ 2 weeks for 20 years. Stopped smoking in year 2013. Denies alcohol or drug abuse. Patient single. No children. - Patient Problems (1) Acute respiratory failure with hypoxia Current Visit: Yes Status: Acute Plan to address problem: O2 2 litres via nasal canula Albuterol/atrovent aerosol treatments q 6 hours. Continue S/C Lovenox. Patient refusing blood gases. (2) CHF exacerbation Current Visit: Yes Status: Acute Plan to address problem: Patient is on Lasix. Management as per cardiology. (3) Obesity Current Visit: Yes Status: Chronic Plan to address problem: Recommend to loose weight. Recommend sleep study as out patient. (4) Uncontrolled hypertension Current Visit: Yes Status: Chronic Plan to address problem: Management as per primary care.
[2018-07-25] MEDS: LASIX IV SCH ×2 (05:52→19:00)
--- NOTE | 2018-07-25 09:23 | Progress Note ---
Assessment and Plan Acute hypoxic respiratory failure on 3L NC Acute on chronic systolic heart failure: COPD Hypertension Diabetes Mellitus: Extreme Obesity, bmi 59.2 Metabolic alkalosis -Continue supplemental oxygen, wean for O2 sats>90% -VTE prophylaxis -Bronchodilators per protocol -Diuresis as tolerated by renal function and hemodynamics -Heart failure measures -Out patient sleep study -Nocturnal CPAP as tolerated -Cardioprotective measures -Glycemic control -Weight loss and lifestyle modifications -Need for medical compliance discussed Await cardiac stress test Subjective Date of service: 07/25/18 Interval history: Follow up for acute hypoxemic rspiratory failure: COPD; Extreme obesity: acute on chronic heart failure Seen and examined. 24 hour events reviewed. Sitting up in bed on 3L NC, with some shortness of breath. Denies any fevers or chills, no nausea or vomiting. Scheduled for cardiac stress test in the morning. Sister at the bedside Objective - Exam Narrative Exam: Gen: WDWN, NAD, Awake, Alert, Orientated x 3,morbid obese bmi 59.2 HEENT: NCAT, EOMI, PERRL, OP Clear Neck: supple, no adenopathy, no thyromegaly, no JVD CVS/Heart: RRR, normal S1S2, pulses present bilaterally Chest/Lungs: diminished bd bilateral, Symmetrical chest expansion, good air entr y bilaterally GI/Abdomen: soft, NTND, good bowel sounds, no guarding or rebound /Bladder: no suprapubic tenderness, no CVA or paraspinal tenderness Extermity/Skin: no c/c/e, no obvious rash MSK: FROM x 4 Neuro: CN 2-12 grossly intact, no new focal deficits Psych: calm Vital Signs - 12hr 07/24/18 07/25/18 07/25/18 23:33 05:13 08:07 Temperature 98.1 F 97.6 F 98.2 F Pulse Rate 75 68 72 Respiratory 20 20 20 Rate Blood Pressure 117/64 129/67 139/74 O2 Sat by Pulse 89 96 100 Oximetry Constitutional: alert, other (mild respiratory distress) Eyes: non-icteric ENT: oropharynx moist Neck: supple, no JVD Ascultation: Bilateral: diminished breath sounds Cardiovascular: regular rate and rhythm Gastrointestinal: normoactive bowel sounds, soft, non-tender, non-distended, other (anterior abdominal wall edema) Integumentary: normal Extremities: no cyanosis, cool, edema Neurologic: normal mental status, non-focal exam, pupils equal and round, CN II- XII normal Psychiatric: mood appropriate CBC and BMP: 07/24/18 06:07 07/24/18 06:07 ABG, PT/INR, D-dimer: PT/INR, D-dimer PT 15.5 Sec. (12.2-14.9) H 07/22/18 19:35 INR 1.16 (0.87-1.13) H 07/22/18 19:35 Abnormal lab findings: Abnormal Labs 07/22/18 07/22/18 07/22/18 19:25 19:35 19:35 WBC RBC 5.07 H Hgb 14.4 H Hct 45.9 H RDW 17.2 H [place] % (Auto) 13.1 H Lymph # PT 15.5 H INR 1.16 H Chloride 94.4 L Carbon Dioxide 35 H BUN 5 L Creatinine 0.5 L Glucose 118 H POC Glucose Magnesium NT-Pro-B Natriuret Pep Total Protein 8.3 H Albumin 3.3 L 07/22/18 07/23/18 07/23/18 19:36 07:24 07:24 WBC 4.2 L RBC Hgb Hct 43.8 H RDW 16.8 H [place] % (Auto) 15.2 H Lymph # 1.1 L PT INR Chloride 95.1 L Carbon Dioxide 37 H BUN 6 L Creatinine 0.5 L Glucose 148 H POC Glucose Magnesium NT-Pro-B Natriuret Pep 3049 H Total Protein Albumin 07/23/18 07/24/18 07/24/18 11:46 06:07 06:07 WBC 3.5 L RBC Hgb Hct 43.3 H RDW 17.4 H [place] % (Auto) Lymph # PT INR Chloride 94.3 L Carbon Dioxide 34 H BUN Creatinine 0.4 L Glucose 149 H POC Glucose 119 H Magnesium 1.40 L NT-Pro-B Natriuret Pep Total Protein Albumin 07/24/18 07/24/18 07/24/18 08:06 11:49 21:34 WBC RBC Hgb Hct RDW [place] % (Auto) Lymph # PT INR Chloride Carbon Dioxide BUN Creatinine Glucose POC Glucose 115 H 143 H 118 H Magnesium NT-Pro-B Natriuret Pep Total Protein Albumin 07/25/18 08:47 WBC RBC Hgb Hct RDW [place] % (Auto) Lymph # PT INR Chloride Carbon Dioxide BUN Creatinine Glucose POC Glucose 110 H Magnesium NT-Pro-B Natriuret Pep Total Protein Albumin Chest x-ray: image reviewed Allied health notes reviewed: nursing
[2018-07-25] MEDS: LOPRESSOR PO SCH ×2 (11:00→21:23)
[2018-07-25] MEDS: ZESTRIL PO SCH (11:00)
[2018-07-25] MEDS: BABY ASPIRIN PO SCH (11:00)
[2018-07-25] MEDS: LOVENOX SUB-Q SCH (11:00)
[2018-07-25] MEDS: SODIUM CHLORIDE FLUSH SYRINGE 10 ML IV SCH ×2 (11:00→21:23)
--- NOTE | 2018-07-25 11:28 | Progress Note ---
Assessment and Plan Pulmonary consultation noted. Cont present cardiac management. Will plan for lexiscan MPI stress test in AM to r/o ischemic CMP and for further eval of persistent dyspnea. NPO after MN. The patient has been seen in conjunction with Dr. Kevin Gooden who agrees with the assessment and plan of care. - Patient Problems (1) Acute HFrEF (heart failure with reduced ejection fraction) Current Visit: Yes Status: Acute (2) Acute on chronic respiratory failure Current Visit: Yes Status: Acute (3) COPD (chronic obstructive pulmonary disease) Current Visit: Yes Status: Chronic (4) Cardiomyopathy Current Visit: Yes Status: Chronic (5) NSVT (nonsustained ventricular tachycardia) Current Visit: Yes Status: Acute (6) Uncontrolled hypertension Current Visit: Yes Status: Chronic (7) Noncompliance with medication regimen Current Visit: Yes Status: Chronic (8) Obesity Current Visit: Yes Status: Chronic Subjective Date of service: 07/25/18 Principal diagnosis: HF Interval history: pt sitting at bedside, states she is feeling better, sister at bedside. tele reviewed - pt in SR with occasional brief bouts of NSVT overnight, pt asymptomatic. Objective Last Vital Signs Temp 98.2 F 07/25/18 08:07 Pulse 72 07/25/18 08:07 Resp 20 07/25/18 08:07 BP 139/74 07/25/18 08:07 Pulse Ox 100 07/25/18 08:07 - Physical Examination General: No Apparent Distress Neck: Positive: neck supple Cardiac: Positive: Reg Rate and Rhythm, S1/S2 Lungs: Positive: Decreased Breath Sounds Abdomen: Positive: Distended Skin: Positive: Clear Extremities: Present: +1 Edema, warm - Imaging and Cardiology EKG: report reviewed (sinus tachycardia, RBBB) Echo: report reviewed (03/22/18: EF 35-40%, [id number] LVH, [id number] TR) - Telemetry EKG Rhythm: Sinus Rhythm - EKG Sinus rhythms and dysrhythmias: sinus tachycardia AV and intraventricular conduction: right bundle branch block
--- NOTE | 2018-07-25 16:08 | Progress Note ---
Assessment and Plan Assessment and plan: Patient is a 63 yo woman with a history of CHF, EF of 35%, hypertension, diabetes mellitus and morbid obesity who presents with sob. * pCXR IMPRESSION: COPD Left lower lung and left costophrenic angle are obscured by the cardiac shadow. Any underlying infiltrates and left pleural effusion cannot be excluded. A two-view chest study is recommended whenever the patient's condition permits Acute hypoxic respiratory failure, on 3 liters on O2; try to wean off O2, treat the heart failure,Cardiology input noted, will consult Pulmonology Acute on chronic systolic heart failure: diuresis, Cardiology consulted, input noted COPD; consulted Pulmonology Hypertension, uncontrolled: low salt diet, Diabetes Mellitus: ssi Morbid Obesity, bmi 59.2: patient financial counselor on outpatient NIKKI screen Noncompliant: patient financial counselor on compliance sister Thera at bedside, confirmed patient non-adherence to medical therapies such as medications and O2 use. stress test tomorrow. Awaiting placement, ordered PT/OT today History Interval history: Patient was seen and examined. Follow-up on current diagnosis of CHF, re spiratory failure on 3 Liters. No overnight events reported to me. Patient denies any chest pain, nausea/vomiting or severe headaches. Imaging, nursing note, chart, labs and old chart reviewed. Discussed with patient. Hospitalist Physical - Physical exam Narrative exam: Gen: WDWN, NAD, Awake, Alert, Orientated x 3,morbid obese bmi 59.2 HEENT: NCAT, EOMI, PERRL, OP Clear Neck: supple, no adenopathy, no thyromegaly, no JVD CVS/Heart: RRR, normal S1S2, pulses present bilaterally Chest/Lungs: diminished bd bilateral, Symmetrical chest expansion, good air entry bilaterally GI/Abdomen: soft, NTND, good bowel sounds, no guarding or rebound /Bladder: no suprapubic tenderness, no CVA or paraspinal tenderness Extermity/Skin: no c/c/e, no obvious rash MSK: FROM x 4 Neuro: CN 2-12 grossly intact, no new focal deficits Psych: calm - Constitutional Vitals: Temp Pulse Resp BP Pulse Ox 98.6 F 80 20 138/73 89 07/25/18 11:22 07/25/18 11:22 07/25/18 11:22 07/25/18 11:22 07/25/18 11:22 General appearance: Absent: mild distress Results - Labs CBC & Chem 7: 07/24/18 06:07 07/24/18 06:07 Labs: Laboratory Last Values WBC 3.5 K/mm3 (4.5-11.0) L 07/24/18 06:07 RBC 4.82 M/mm3 (3.65-5.03) 07/24/18 06:07 Hgb 13.7 gm/dl (10.1-14.3) 07/24/18 06:07 Hct 43.3 % (30.3-42.9) H 07/24/18 06:07 MCV 90 fl (79-97) 07/24/18 06:07 MCH 28 pg (28-32) 07/24/18 06:07 MCHC 32 % (30-34) 07/24/18 06:07 RDW 17.4 % (13.2-15.2) H 07/24/18 06:07 Plt Count 288 K/mm3 (140-440) 07/24/18 06:07 Lymph % (Auto) 26.2 % (13.4-35.0) 07/23/18 07:24 [place] % (Auto) 15.2 % (0.0-7.3) H 07/23/18 07:24 Eos % (Auto) 3.6 % (0.0-4.3) 07/23/18 07:24 Baso % (Auto) 0.9 % (0.0-1.8) 07/23/18 07:24 Lymph # 1.1 K/mm3 (1.2-5.4) L 07/23/18 07:24 [place] # 0.6 K/mm3 (0.0-0.8) 07/23/18 07:24 Eos # 0.2 K/mm3 (0.0-0.4) 07/23/18 07:24 Baso # 0.0 K/mm3 (0.0-0.1) 07/23/18 07:24 Seg Neutrophils % 54.1 % (40.0-70.0) 07/23/18 07:24 Seg Neutrophils # 2.3 K/mm3 (1.8-7.7) 07/23/18 07:24 PT 15.5 Sec. (12.2-14.9) H 07/22/18 19:35 INR 1.16 (0.87-1.13) H 07/22/18 19:35 APTT 34.6 Sec. (24.2-36.6) 07/22/18 19:35 Sodium 140 mmol/L (137-145) 07/24/18 06:07 Potassium 4.1 mmol/L (3.6-5.0) 07/24/18 06:07 Chloride 94.3 mmol/L (98-107) L 07/24/18 06:07 Carbon Dioxide 34 mmol/L (22-30) H 07/24/18 06:07 16 mmol/L 07/24/18 06:07 BUN 7 mg/dL (7-17) 07/24/18 06:07 0.4 mg/dL (0.7-1.2) L 07/24/18 06:07 Estimated GFR > 60 ml/min 07/24/18 06:07 18 % 07/24/18 06:07 Glucose 149 mg/dL (65-100) H 07/24/18 06:07 POC Glucose 110 (70-105) H 07/25/18 11:26 Calcium 8.5 mg/dL (8.4-10.2) 07/24/18 06:07 Magnesium 2.00 mg/dL (1.7-2.3) 07/25/18 04:59 0.70 mg/dL (0.1-1.2) 07/22/18 19:35 AST 22 units/L (5-40) 07/22/18 19:35 ALT 10 units/L (7-56) 07/22/18 19:35 69 units/L (35-129) 07/22/18 19:35 90 units/L (30-135) 07/23/18 07:24 CK-MB (CK-2) 2.5 ng/mL (0.0-4.0) 07/23/18 07:24 CK-MB (CK-2) Rel Index 2.7 (0-4) 07/23/18 07:24 0.019 ng/mL (0.00-0.029) 07/23/18 07:24 NT-Pro-B Natriuret Pep 3049 pg/mL (0-900) H 07/22/18 19:36 8.3 g/dL (6.3-8.2) H 07/22/18 19:35 3.3 g/dL (3.9-5) L 07/22/18 19:35 0.7 % 07/22/18 19:35 Active Medications - Current Medications Current Medications: Generic Name Dose Route Start Last Admin Trade Name Freq PRN Reason Stop Dose Admin Acetaminophen 650 mg 07/22/18 21:59 07/24/18 18:28 Tylenol PO 650 mg Q4H PRN Administration Pain MILD(1-3)/Fever >100.5/KIMBALL Aspirin 81 mg 07/23/18 10:00 07/25/18 11:00 Baby Aspirin PO 81 mg QDAY DANIEL Administration Dextrose 50 ml 07/22/18 22:06 D50w (25gm) Syringe IV PRN PRN Hypoglycemia Enoxaparin Sodium 40 mg 07/23/18 10:00 07/25/18 11:00 Lovenox SUB-Q 40 mg QDAY DANIEL Administration Furosemide 40 mg 07/23/18 06:00 07/25/18 05:52 Lasix IV 40 mg BID@0600,1800 DANIEL Administration Lisinopril 5 mg 07/23/18 12:00 07/25/18 11:00 Zestril PO 5 mg QDAY DANIEL Administration Metoprolol Tartrate 50 mg 07/23/18 12:00 07/25/18 11:00 Lopressor PO 50 mg BID DANIEL Administration Ondansetron HCl 4 mg 07/22/18 21:59 Zofran IV Q8H PRN Nausea And Vomiting Sodium Chloride 10 ml 07/22/18 22:00 07/25/18 11:00 Sodium Chloride Flush Syringe 10 Ml IV 10 ml BID DANIEL Administration Sodium Chloride 10 ml 07/22/18 21:59 Sodium Chloride Flush Syringe 10 Ml IV PRN PRN LINE FLUSH Nutrition/Malnutrition Assess - Dietary Evaluation Nutrition/Malnutrition Findings: Nutrition Notes Start: 07/23/18 15:03 Freq: Status: Active Protocol: Document 07/24/18 14:55 RM (Rec: 07/24/18 15:02 RM [id number]) Nutrition Notes Initial or Follow up Reassessment Current Diagnosis Diabetes,Hypertension,Heart Failure Other Pertinent Diagnosis Obesity, Noncompliant, Lower extremity edema Current Diet Cardiac/Consistent CHO Labs/Tests Reviewed Pertinent Medications Lasix Height 5 ft 3 in Weight 154.5 kg [place] Body Weight (kg) 52.27 BMI 60.3 Subjective/Other Information Pt stated that she ate all of her lunch and drank the Glucerna. Reviewed DM and CHF diet education. Gave handouts. Percent of energy/protein needs met: 100%/100% #2 Nutrition Diagnosis Food and nutrition-related knowledge deficit Etiology lack of prior education As Evidenced by Signs and Symptoms no prior knowledge of need for food and nutrition recommendations #1 Nutrition Diagnosis Malnutrition Diagnosis Progress(for reassessment Continues documentation) Is patient on ventilator? No Is Patient Ambulatory and/or Out of Bed Yes REE-([place]-St. Jeor-ambulatory/OOB) [ 2702.869 [id number]] Kcal/Kg value to use for calculation 14 Approximate Energy Requirements Using 2163 kcal/Kg Calculation Used for Recommendations Kcal/kg Additional Notes Protein Needs: 82-102g (0.8-1g /kg 102kg adjBW) Fluid Needs: 1 ml/kcal Nutrition Intervention Change Diet Order: Cardiac/Consistent CHO, Mech soft w/ground meat Add Supplement/Snack (indicate name/kcal Glucerna 1 daily /protein ) Provides kCal: 220 Provides Protein (gm) 10 Teaching Recipient Patient Learning Readiness Good Teaching Methods Discussion,Handout Response to Teaching Verbalize understanding Education Handouts Provided Carbohydrate Counting for People with Diabetes, Heart Failure Nutrition Therapy Barriers to Learning No Barriers RD phone number provided Yes Patient aware of follow up options Yes Goal #1 Continue to meet at least 75% of calorie and protein needs via PO and ONS intakes Follow-Up By: 07/26/18 Additional Comments Follow for stable intakes
[2018-07-26] MEDS: LASIX IV SCH ×2 (06:21→18:51)
--- NOTE | 2018-07-26 09:02 | Progress Note ---
Assessment and Plan Acute hypoxic respiratory failure on 3L NC Acute on chronic systolic heart failure: COPD Hypertension Diabetes Mellitus: Extreme Obesity, bmi 59.2 Metabolic alkalosis -Continue supplemental oxygen, wean for O2 sats>90% -VTE prophylaxis -Bronchodilators per protocol -Diuresis as tolerated by renal function and hemodynamics -Heart failure measures -Out patient sleep study -Nocturnal CPAP as tolerated -Cardioprotective measures -Glycemic control -Weight loss and lifestyle modifications -Need for medical compliance discussed -Follow upon cardiac stress results once available Subjective Date of service: 07/26/18 Principal diagnosis: HF Interval history: Follow up for acute hypoxemic rspiratory failure: COPD; Extreme obesity: acute on chronic heart failure Seen and examined. 24 hour events reviewed. Sitting up in bed on 3L NC, with some shortness of breath. Denies any fevers or chills, no nausea or vomiting. Scheduled for cardiac stress test in the morning. Sister at the bedside Objective Vital Signs - 12hr 07/25/18 07/25/18 07/26/18 22:00 23:37 04:01 Temperature 97.5 F L 98.5 F Pulse Rate 69 73 Respiratory 18 20 20 Rate Blood Pressure 107/53 162/79 O2 Sat by Pulse 85 100 Oximetry Constitutional: alert, other (mild respiratory distress) Eyes: non-icteric ENT: oropharynx moist Neck: supple, no JVD Effort: mildly labored Ascultation: Bilateral: diminished breath sounds Cardiovascular: regular rate and rhythm Gastrointestinal: normoactive bowel sounds, soft, non-tender, non-distended, other (anterior abdominal wall edema) Integumentary: normal Extremities: no cyanosis, cool, edema Neurologic: normal mental status, non-focal exam, pupils equal and round, CN II- XII normal Psychiatric: mood appropriate CBC and BMP: 08/01/18 10:04 08/01/18 10:04 ABG, PT/INR, D-dimer: PT/INR, D-dimer PT 15.5 Sec. (12.2-14.9) H 07/22/18 19:35 INR 1.16 (0.87-1.13) H 07/22/18 19:35 Abnormal lab findings: Abnormal Labs 07/22/18 07/22/18 07/22/18 19:25 19:35 19:35 WBC RBC 5.07 H Hgb 14.4 H Hct 45.9 H RDW 17.2 H [place] % (Auto) 13.1 H Lymph # PT 15.5 H INR 1.16 H Chloride 94.4 L Carbon Dioxide 35 H BUN 5 L Creatinine 0.5 L Glucose 118 H POC Glucose Magnesium NT-Pro-B Natriuret Pep Total Protein 8.3 H Albumin 3.3 L 07/22/18 07/23/18 07/23/18 19:36 07:24 07:24 WBC 4.2 L RBC Hgb Hct 43.8 H RDW 16.8 H [place] % (Auto) 15.2 H Lymph # 1.1 L PT INR Chloride 95.1 L Carbon Dioxide 37 H BUN 6 L Creatinine 0.5 L Glucose 148 H POC Glucose Magnesium NT-Pro-B Natriuret Pep 3049 H Total Protein Albumin 07/23/18 07/24/18 07/24/18 11:46 06:07 06:07 WBC 3.5 L RBC Hgb Hct 43.3 H RDW 17.4 H [place] % (Auto) Lymph # PT INR Chloride 94.3 L Carbon Dioxide 34 H BUN Creatinine 0.4 L Glucose 149 H POC Glucose 119 H Magnesium 1.40 L NT-Pro-B Natriuret Pep Total Protein Albumin 07/24/18 07/24/18 07/24/18 08:06 11:49 21:34 WBC RBC Hgb Hct RDW [place] % (Auto) Lymph # PT INR Chloride Carbon Dioxide BUN Creatinine Glucose POC Glucose 115 H 143 H 118 H Magnesium NT-Pro-B Natriuret Pep Total Protein Albumin 07/25/18 07/25/18 07/25/18 08:47 11:26 16:00 WBC RBC Hgb Hct RDW [place] % (Auto) Lymph # PT INR Chloride Carbon Dioxide BUN Creatinine Glucose POC Glucose 110 H 110 H 118 H Magnesium NT-Pro-B Natriuret Pep Total Protein Albumin 07/25/18 20:58 WBC RBC Hgb Hct RDW [place] % (Auto) Lymph # PT INR Chloride Carbon Dioxide BUN Creatinine Glucose POC Glucose 118 H Magnesium NT-Pro-B Natriuret Pep Total Protein Albumin Chest x-ray: image reviewed Allied health notes reviewed: nursing
[2018-07-26] MEDS ORDERED: LEXISCAN IV ONE (10:32)
--- NOTE | 2018-07-26 12:37 | Progress Note ---
Assessment and Plan S/p lexiscan MPI stress test this AM which was TDS, negative for significant ischemia. Currently stable cardiac status. Pt may discharge home from cardiology standpoint. At discharge, convert IV lasix to home dosage of PO lasix 40mg BID. Recommend pt follow up in our office with Dr. Benitez within 3-5 days of hospital discharge ([phone] The patient has been seen in conjunction with Dr. Kevin Gooden who agrees with the assessment and plan of care. - Patient Problems (1) Acute HFrEF (heart failure with reduced ejection fraction) Current Visit: Yes Status: Acute (2) Acute on chronic respiratory failure Current Visit: Yes Status: Acute (3) COPD (chronic obstructive pulmonary disease) Current Visit: Yes Status: Chronic (4) Cardiomyopathy Current Visit: Yes Status: Chronic (5) NSVT (nonsustained ventricular tachycardia) Current Visit: Yes Status: Acute (6) Uncontrolled hypertension Current Visit: Yes Status: Chronic (7) Noncompliance with medication regimen Current Visit: Yes Status: Chronic (8) Obesity Current Visit: Yes Status: Chronic Subjective Date of service: 07/26/18 Principal diagnosis: HF Interval history: pt for stress test today. Objective Last Vital Signs Temp 98.5 F 07/26/18 04:01 Pulse 73 07/26/18 04:01 Resp 20 07/26/18 04:01 BP 162/79 07/26/18 04:01 Pulse Ox 100 07/26/18 04:01 - Physical Examination General: No Apparent Distress Neck: Positive: neck supple Cardiac: Positive: Reg Rate and Rhythm, S1/S2 Lungs: Positive: Decreased Breath Sounds Abdomen: Positive: Distended Skin: Positive: Clear Extremities: Present: +1 Edema, warm - Imaging and Cardiology EKG: report reviewed (sinus tachycardia, RBBB) Echo: report reviewed (03/22/18: EF 35-40%, [id number] LVH, shzf-tn-[id number] TR) - EKG Sinus rhythms and dysrhythmias: sinus tachycardia AV and intraventricular conduction: right bundle branch block - Allied health notes Allied health notes reviewed: nursing
[2018-07-26] MEDS: LOVENOX SUB-Q SCH (14:02)
[2018-07-26] MEDS: LOPRESSOR PO SCH ×2 (14:02→22:52)
[2018-07-26] MEDS: BABY ASPIRIN PO SCH (14:02)
[2018-07-26] MEDS: ZESTRIL PO SCH (14:03)
[2018-07-26] MEDS: SODIUM CHLORIDE FLUSH SYRINGE 10 ML IV SCH ×2 (14:03→22:54)
--- NOTE | 2018-07-26 14:29 | Progress Note ---
Assessment and Plan Assessment and plan: Patient is a 63 yo woman with a history of CHF, EF of 35%, hypertension, diabetes mellitus and morbid obesity who presents with sob. * pCXR IMPRESSION: COPD Left lower lung and left costophrenic angle are obscured by the cardiac shadow. Any underlying infiltrates and left pleural effusion cannot be excluded. A two-view chest study is recommended whenever the patient's condition permits Acute hypoxic respiratory failure, on 3 liters on O2; try to wean off O2, treat the heart failure,Cardiology input noted, will consult Pulmonology Acute on chronic systolic heart failure: diuresis, Cardiology consulted, input noted COPD; consulted Pulmonology Hypertension, uncontrolled: low salt diet, Diabetes Mellitus: ssi Morbid Obesity, bmi 59.2: personal counselor on outpatient NIKKI screen Noncompliant: continued personal counselor on compliance prelim stress test negative Awaiting placement pending History Interval history: Patient was seen and examined. Follow-up on current diagnosis of CHF, respiratory failure on 3 Liters. No overnight events reported to me. Patient denies any chest pain, nausea/vomiting or severe headaches. Imaging, nursing note, chart, labs and old chart reviewed. Discussed with patient. Hospitalist Physical - Physical exam Narrative exam: Gen: WDWN, NAD, Awake, Alert, Orientated x 3,morbid obese bmi 59.2 HEENT: NCAT, EOMI, PERRL, OP Clear Neck: supple, no adenopathy, no thyromegaly, no JVD CVS/Heart: RRR, normal S1S2, pulses present bilaterally Chest/Lungs: diminished bd bilateral, Symmetrical chest expansion, good air entry bilaterally GI/Abdomen: soft, NTND, good bowel sounds, no guarding or rebound /Bladder: no suprapubic tenderness, no CVA or paraspinal tenderness Extermity/Skin: no c/c/e, no obvious rash MSK: FROM x 4 Neuro: CN 2-12 grossly intact, no new focal deficits Psych: calm - Constitutional Vitals: Temp Pulse Resp BP Pulse Ox 98.5 F 73 20 162/79 100 07/26/18 04:01 07/26/18 04:01 07/26/18 04:01 07/26/18 04:01 07/26/18 04:01 General appearance: Absent: mild distress Results - Labs CBC & Chem 7: 07/24/18 06:07 07/24/18 06:07 Labs: Laboratory Last Values WBC 3.5 K/mm3 (4.5-11.0) L 07/24/18 06:07 RBC 4.82 M/mm3 (3.65-5.03) 07/24/18 06:07 Hgb 13.7 gm/dl (10.1-14.3) 07/24/18 06:07 Hct 43.3 % (30.3-42.9) H 07/24/18 06:07 MCV 90 fl (79-97) 07/24/18 06:07 MCH 28 pg (28-32) 07/24/18 06:07 MCHC 32 % (30-34) 07/24/18 06:07 RDW 17.4 % (13.2-15.2) H 07/24/18 06:07 Plt Count 288 K/mm3 (140-440) 07/24/18 06:07 Lymph % (Auto) 26.2 % (13.4-35.0) 07/23/18 07:24 [place] % (Auto) 15.2 % (0.0-7.3) H 07/23/18 07:24 Eos % (Auto) 3.6 % (0.0-4.3) 07/23/18 07:24 Baso % (Auto) 0.9 % (0.0-1.8) 07/23/18 07:24 Lymph # 1.1 K/mm3 (1.2-5.4) L 07/23/18 07:24 [place] # 0.6 K/mm3 (0.0-0.8) 07/23/18 07:24 Eos # 0.2 K/mm3 (0.0-0.4) 07/23/18 07:24 Baso # 0.0 K/mm3 (0.0-0.1) 07/23/18 07:24 Seg Neutrophils % 54.1 % (40.0-70.0) 07/23/18 07:24 Seg Neutrophils # 2.3 K/mm3 (1.8-7.7) 07/23/18 07:24 PT 15.5 Sec. (12.2-14.9) H 07/22/18 19:35 INR 1.16 (0.87-1.13) H 07/22/18 19:35 APTT 34.6 Sec. (24.2-36.6) 07/22/18 19:35 Sodium 140 mmol/L (137-145) 07/24/18 06:07 Potassium 4.1 mmol/L (3.6-5.0) 07/24/18 06:07 Chloride 94.3 mmol/L (98-107) L 07/24/18 06:07 Carbon Dioxide 34 mmol/L (22-30) H 07/24/18 06:07 16 mmol/L 07/24/18 06:07 BUN 7 mg/dL (7-17) 07/24/18 06:07 0.4 mg/dL (0.7-1.2) L 07/24/18 06:07 Estimated GFR > 60 ml/min 07/24/18 06:07 18 % 07/24/18 06:07 Glucose 149 mg/dL (65-100) H 07/24/18 06:07 POC Glucose 105 (70-105) 07/26/18 07:25 Calcium 8.5 mg/dL (8.4-10.2) 07/24/18 06:07 Magnesium 2.00 mg/dL (1.7-2.3) 07/25/18 04:59 0.70 mg/dL (0.1-1.2) 07/22/18 19:35 AST 22 units/L (5-40) 07/22/18 19:35 ALT 10 units/L (7-56) 07/22/18 19:35 69 units/L (35-129) 07/22/18 19:35 90 units/L (30-135) 07/23/18 07:24 CK-MB (CK-2) 2.5 ng/mL (0.0-4.0) 07/23/18 07:24 CK-MB (CK-2) Rel Index 2.7 (0-4) 07/23/18 07:24 0.019 ng/mL (0.00-0.029) 07/23/18 07:24 NT-Pro-B Natriuret Pep 3049 pg/mL (0-900) H 07/22/18 19:36 8.3 g/dL (6.3-8.2) H 07/22/18 19:35 3.3 g/dL (3.9-5) L 07/22/18 19:35 0.7 % 07/22/18 19:35 Active Medications - Current Medications Current Medications: Generic Name Dose Route Start Last Admin Trade Name Freq PRN Reason Stop Dose Admin Acetaminophen 650 mg 07/22/18 21:59 07/24/18 18:28 Tylenol PO 650 mg Q4H PRN Administration Pain MILD(1-3)/Fever >100.5/KIMBALL Aspirin 81 mg 07/23/18 10:00 07/26/18 14:02 Baby Aspirin PO 81 mg QDAY DANIEL Administration Dextrose 50 ml 07/22/18 22:06 D50w (25gm) Syringe IV PRN PRN Hypoglycemia Enoxaparin Sodium 40 mg 07/23/18 10:00 07/26/18 14:02 Lovenox SUB-Q 40 mg QDAY DANIEL Administration Furosemide 40 mg 07/23/18 06:00 07/26/18 06:21 Lasix IV 40 mg BID@0600,1800 DANIEL Administration Lisinopril 5 mg 07/23/18 12:00 07/26/18 14:03 Zestril PO 5 mg QDAY DANIEL Administration Metoprolol Tartrate 50 mg 07/23/18 12:00 07/26/18 14:02 Lopressor PO 50 mg BID DANIEL Administration Ondansetron HCl 4 mg 07/22/18 21:59 Zofran IV Q8H PRN Nausea And Vomiting Sodium Chloride 10 ml 07/22/18 22:00 07/26/18 14:03 Sodium Chloride Flush Syringe 10 Ml IV 10 ml BID DANIEL Administration Sodium Chloride 10 ml 07/22/18 21:59 Sodium Chloride Flush Syringe 10 Ml IV PRN PRN LINE FLUSH Nutrition/Malnutrition Assess - Dietary Evaluation Nutrition/Malnutrition Findings: Nutrition Notes Start: 07/23/18 15:03 Freq: Status: Active Protocol: Document 07/24/18 14:55 RM (Rec: 07/24/18 15:02 RM [id number]) Nutrition Notes Initial or Follow up Reassessment Current Diagnosis Diabetes,Hypertension,Heart Failure Other Pertinent Diagnosis Obesity, Noncompliant, Lower extremity edema Current Diet Cardiac/Consistent CHO Labs/Tests Reviewed Pertinent Medications Lasix Height 5 ft 3 in Weight 154.5 kg [place] Body Weight (kg) 52.27 BMI 60.3 Subjective/Other Information Pt stated that she ate all of her lunch and drank the Glucerna. Reviewed DM and CHF diet education. Gave handouts. Percent of energy/protein needs met: 100%/100% #2 Nutrition Diagnosis Food and nutrition-related knowledge deficit Etiology lack of prior education As Evidenced by Signs and Symptoms no prior knowledge of need for food and nutrition recommendations #1 Nutrition Diagnosis Malnutrition Diagnosis Progress(for reassessment Continues documentation) Is patient on ventilator? No Is Patient Ambulatory and/or Out of Bed Yes REE-([place]-ambulatory/OOB) [ 2702.869 NUTR.MSJOOB] Kcal/Kg value to use for calculation 14 Approximate Energy Requirements Using 2163 kcal/Kg Calculation Used for Recommendations Kcal/kg Additional Notes Protein Needs: 82-102g (0.8-1g /kg 102kg adjBW) Fluid Needs: 1 ml/kcal Nutrition Intervention Change Diet Order: Cardiac/Consistent CHO, Mech soft w/ground meat Add Supplement/Snack (indicate name/kcal Glucerna 1 daily /protein ) Provides kCal: 220 Provides Protein (gm) 10 Teaching Recipient Patient Learning Readiness Good Teaching Methods Discussion,Handout Response to Teaching Verbalize understanding Education Handouts Provided Carbohydrate Counting for People with Diabetes, Heart Failure Nutrition Therapy Barriers to Learning No Barriers RD phone number provided Yes Patient aware of follow up options Yes Goal #1 Continue to meet at least 75% of calorie and protein needs via PO and ONS intakes Follow-Up By: 07/26/18 Additional Comments Follow for stable intakes
--- NOTE | 2018-07-27 04:54 | Treadmill Report ---
NUCLEAR STRESS TEST REFERRING PHYSICIAN: Hospitalist service. PROTOCOL: The patient was brought to the stress lab in a postabsorptive state, given 10 mCi of technetium 99m at rest. The patient underwent Lexiscan stress test per standard protocol. At peak stress, the patient was given 32 mCi of technetium 99m. Shortly thereafter, the patient underwent stress imaging. Technically difficult study due to body habitus, breast attenuation, but grossly homogenous uptake of radioisotope and without evidence of a significant fixed or reversible defects suggestive of prior infarction or ischemia. Gated wall motion reveals moderate global left ventricular hypokinesis, estimated ejection fraction of 40%. No TID. CONCLUSIONS: 1. Technically difficult study, but probably normal without evidence of significant degree of prior infarction or ischemia. 2. Moderate global left ventricular hypokinesis, ejection fraction approximately 40%. No transient ischemia dilatation. JOB# [id number] SRIDEVI/QUIANA
[2018-07-27] MEDS: LASIX IV SCH ×2 (05:40→18:06)
--- NOTE | 2018-07-27 09:53 | Progress Note ---
Assessment and Plan Acute hypoxic respiratory failure on 3L NC Acute on chronic systolic heart failure: COPD Hypertension Diabetes Mellitus: Extreme Obesity, bmi 59.2 Metabolic alkalosis - Continue supplemental oxygen, wean for O2 sats > 90% - continue bronchodilators per protocol - continue diuresis as tolerated by renal function and hemodynamics - Heart failure measures per cardiology team - Out patient sleep study is appropriate - Nocturnal CPAP as tolerated - Cardioprotective measures - Glycemic control with SSI for target BG < 180 mg/dl - Weight loss and lifestyle modifications - Need for medical compliance discussed - Await cardiac stress test - VTE prophylaxis ... re-evaluate in am & prn Subjective Date of service: 07/27/18 Principal diagnosis: Ac hypoxemic resp failure; Ac on ch HFrEF; COPD; HTN; DM II; Obesity Interval history: Patient is seen today for: Acute hypoxic respiratory failure on 3L NC; Acute on chronic systolic heart failure; COPD; Hypertension; Diabetes Mellitus Seen and examined at bedside; 24hour events reviewed; nursing and respiratory care staff consulted; no adverse overnight events reported to me; resting in bed; feels better; remains on supplemental oxygen; No N/V/F/C; denies acute chest pains Objective Vital Signs - 12hr 07/26/18 07/27/18 07/27/18 22:24 05:00 06:18 Temperature 97.9 F 97.8 F Pulse Rate 77 74 74 Respiratory 20 20 Rate Respiratory Rate [ Generalized] Blood Pressure 141/79 142/79 O2 Sat by Pulse 92 88 Oximetry 07/27/18 09:00 Temperature Pulse Rate Respiratory Rate Respiratory 18 Rate [ Generalized] Blood Pressure O2 Sat by Pulse Oximetry Constitutional: alert, appears uncomfortable, other (elderly looking, morbidly obese AAF with mild respiratory distress) Eyes: non-icteric ENT: oropharynx moist, other (Mallampati 4) Neck: supple, no JVD, other (no thyromegaly) Effort: mildly labored Ascultation: Bilateral: clear, diminished breath sounds Percussion: Bilateral: not dull Cardiovascular: regular rate and rhythm Gastrointestinal: normoactive bowel sounds, soft, non-tender, non-distended, other (No HSM) Integumentary: rash (stasis dernatitis type rash to workman's bilateraly) Extremities: no cyanosis, cool, edema Neurologic: normal mental status, non-focal exam, pupils equal and round, CN II- XII normal, motor strength normal and Psychiatric: mood appropriate, affect normal CBC and BMP: 07/24/18 06:07 07/24/18 06:07 ABG, PT/INR, D-dimer: PT/INR, D-dimer PT 15.5 Sec. (12.2-14.9) H 07/22/18 19:35 INR 1.16 (0.87-1.13) H 07/22/18 19:35 Abnormal lab findings: Abnormal Labs 07/22/18 07/22/18 07/22/18 19:25 19:35 19:35 WBC RBC 5.07 H Hgb 14.4 H Hct 45.9 H RDW 17.2 H Branch % (Auto) 13.1 H Lymph # PT 15.5 H INR 1.16 H Chloride 94.4 L Carbon Dioxide 35 H BUN 5 L Creatinine 0.5 L Glucose 118 H POC Glucose Magnesium NT-Pro-B Natriuret Pep Total Protein 8.3 H Albumin 3.3 L 07/22/18 07/23/18 07/23/18 19:36 07:24 07:24 WBC 4.2 L RBC Hgb Hct 43.8 H RDW 16.8 H Branch % (Auto) 15.2 H Lymph # 1.1 L PT INR Chloride 95.1 L Carbon Dioxide 37 H BUN 6 L Creatinine 0.5 L Glucose 148 H POC Glucose Magnesium NT-Pro-B Natriuret Pep 3049 H Total Protein Albumin 07/23/18 07/24/18 07/24/18 11:46 06:07 06:07 WBC 3.5 L RBC Hgb Hct 43.3 H RDW 17.4 H Branch % (Auto) Lymph # PT INR Chloride 94.3 L Carbon Dioxide 34 H BUN Creatinine 0.4 L Glucose 149 H POC Glucose 119 H Magnesium 1.40 L NT-Pro-B Natriuret Pep Total Protein Albumin 07/24/18 07/24/18 07/24/18 08:06 11:49 21:34 WBC RBC Hgb Hct RDW [place] % (Auto) Lymph # PT INR Chloride Carbon Dioxide BUN Creatinine Glucose POC Glucose 115 H 143 H 118 H Magnesium NT-Pro-B Natriuret Pep Total Protein Albumin 07/25/18 07/25/18 07/25/18 08:47 11:26 16:00 WBC RBC Hgb Hct RDW [place] % (Auto) Lymph # PT INR Chloride Carbon Dioxide BUN Creatinine Glucose POC Glucose 110 H 110 H 118 H Magnesium NT-Pro-B Natriuret Pep Total Protein Albumin 07/25/18 07/26/18 07/27/18 20:58 21:36 07:59 WBC RBC Hgb Hct RDW [place] % (Auto) Lymph # PT INR Chloride Carbon Dioxide BUN Creatinine Glucose POC Glucose 118 H 130 H 114 H Magnesium NT-Pro-B Natriuret Pep Total Protein Albumin Chest x-ray: image reviewed (gross cardiomegaly; small bilateral effusions; pulmonary edema) Allied health notes reviewed: nursing
[2018-07-27] MEDS: BABY ASPIRIN PO SCH (10:59)
[2018-07-27] MEDS: LOVENOX SUB-Q SCH (10:59)
[2018-07-27] MEDS: LOPRESSOR PO SCH ×2 (10:59→22:50)
[2018-07-27] MEDS: SODIUM CHLORIDE FLUSH SYRINGE 10 ML IV SCH ×2 (10:59→22:51)
[2018-07-27] MEDS: ZESTRIL PO SCH (11:00)
--- NOTE | 2018-07-27 14:21 | Progress Note ---
Assessment and Plan Assessment and plan: Patient is a 63 yo woman with a history of CHF, EF of 35%, hypertension, diabetes mellitus and morbid obesity who presents with sob. * pCXR IMPRESSION: COPD Left lower lung and left costophrenic angle are obscured by the cardiac shadow. Any underlying infiltrates and left pleural effusion cannot be excluded. A two-view chest study is recommended whenever the patient's condition permits Acute hypoxic respiratory failure, on 3 liters on O2; try to wean off O2, treat the heart failure,Cardiology input noted, will consult Pulmonology Acute on chronic systolic heart failure: diuresis, Cardiology consulted, input noted COPD; consulted Pulmonology Hypertension, uncontrolled: low salt diet, Diabetes Mellitus: ssi Morbid Obesity, bmi 59.2: personal financial counselor on outpatient NIKKI screen Noncompliant: continued personal financial counselor on compliance prelim stress test negative Awaiting placement pending History Interval history: Patient was seen and examined. Follow-up on current diagnosis of CHF, respiratory failure on 3 Liters. No overnight events reported to me. Patient denies any chest pain, nausea/vomiting or severe headaches. Imaging, nursing note, chart, labs and old chart reviewed. Discussed with patient. Hospitalist Physical - Physical exam Narrative exam: Gen: WDWN, NAD, Awake, Alert, Orientated x 3,morbid obese bmi 59.2 HEENT: NCAT, EOMI, PERRL, OP Clear Neck: supple, no adenopathy, no thyromegaly, no JVD CVS/Heart: RRR, normal S1S2, pulses present bilaterally Chest/Lungs: diminished bd bilateral, Symmetrical chest expansion, good air entry bilaterally GI/Abdomen: soft, NTND, good bowel sounds, no guarding or rebound /Bladder: no suprapubic tenderness, no CVA or paraspinal tenderness Extermity/Skin: no c/c/e, no obvious rash MSK: FROM x 4 Neuro: CN 2-12 grossly intact, no new focal deficits Psych: calm - Constitutional Vitals: Temp Pulse Resp BP Pulse Ox 97.9 F 67 20 146/89 92 07/27/18 12:19 07/27/18 13:00 07/27/18 12:19 07/27/18 12:19 07/27/18 12:19 General appearance: Absent: mild distress Results - Labs CBC & Chem 7: 07/24/18 06:07 07/24/18 06:07 Labs: Laboratory Last Values WBC 3.5 K/mm3 (4.5-11.0) L 07/24/18 06:07 RBC 4.82 M/mm3 (3.65-5.03) 07/24/18 06:07 Hgb 13.7 gm/dl (10.1-14.3) 07/24/18 06:07 Hct 43.3 % (30.3-42.9) H 07/24/18 06:07 MCV 90 fl (79-97) 07/24/18 06:07 MCH 28 pg (28-32) 07/24/18 06:07 MCHC 32 % (30-34) 07/24/18 06:07 RDW 17.4 % (13.2-15.2) H 07/24/18 06:07 Plt Count 288 K/mm3 (140-440) 07/24/18 06:07 Lymph % (Auto) 26.2 % (13.4-35.0) 07/23/18 07:24 [place] % (Auto) 15.2 % (0.0-7.3) H 07/23/18 07:24 Eos % (Auto) 3.6 % (0.0-4.3) 07/23/18 07:24 Baso % (Auto) 0.9 % (0.0-1.8) 07/23/18 07:24 Lymph # 1.1 K/mm3 (1.2-5.4) L 07/23/18 07:24 [place] # 0.6 K/mm3 (0.0-0.8) 07/23/18 07:24 Eos # 0.2 K/mm3 (0.0-0.4) 07/23/18 07:24 Baso # 0.0 K/mm3 (0.0-0.1) 07/23/18 07:24 Seg Neutrophils % 54.1 % (40.0-70.0) 07/23/18 07:24 Seg Neutrophils # 2.3 K/mm3 (1.8-7.7) 07/23/18 07:24 PT 15.5 Sec. (12.2-14.9) H 07/22/18 19:35 INR 1.16 (0.87-1.13) H 07/22/18 19:35 APTT 34.6 Sec. (24.2-36.6) 07/22/18 19:35 Sodium 140 mmol/L (137-145) 07/24/18 06:07 Potassium 4.1 mmol/L (3.6-5.0) 07/24/18 06:07 Chloride 94.3 mmol/L (98-107) L 07/24/18 06:07 Carbon Dioxide 34 mmol/L (22-30) H 07/24/18 06:07 16 mmol/L 07/24/18 06:07 BUN 7 mg/dL (7-17) 07/24/18 06:07 0.4 mg/dL (0.7-1.2) L 07/24/18 06:07 Estimated GFR > 60 ml/min 07/24/18 06:07 18 % 07/24/18 06:07 Glucose 149 mg/dL (65-100) H 07/24/18 06:07 POC Glucose 134 (70-105) H 07/27/18 11:38 Calcium 8.5 mg/dL (8.4-10.2) 07/24/18 06:07 Magnesium 2.00 mg/dL (1.7-2.3) 07/25/18 04:59 0.70 mg/dL (0.1-1.2) 07/22/18 19:35 AST 22 units/L (5-40) 07/22/18 19:35 ALT 10 units/L (7-56) 07/22/18 19:35 69 units/L (35-129) 07/22/18 19:35 90 units/L (30-135) 07/23/18 07:24 CK-MB (CK-2) 2.5 ng/mL (0.0-4.0) 07/23/18 07:24 CK-MB (CK-2) Rel Index 2.7 (0-4) 07/23/18 07:24 0.019 ng/mL (0.00-0.029) 07/23/18 07:24 NT-Pro-B Natriuret Pep 3049 pg/mL (0-900) H 07/22/18 19:36 8.3 g/dL (6.3-8.2) H 07/22/18 19:35 3.3 g/dL (3.9-5) L 07/22/18 19:35 0.7 % 07/22/18 19:35 Active Medications - Current Medications Current Medications: Generic Name Dose Route Start Last Admin Trade Name Freq PRN Reason Stop Dose Admin Acetaminophen 650 mg 07/22/18 21:59 07/24/18 18:28 Tylenol PO 650 mg Q4H PRN Administration Pain MILD(1-3)/Fever >100.5/KIM[place]ALL Aspirin 81 mg 07/23/18 10:00 07/27/18 10:59 Baby Aspirin PO 81 mg QDAY DANIEL Administration Dextrose 50 ml 07/22/18 22:06 D50w (25gm) Syringe IV PRN PRN Hypoglycemia Enoxaparin Sodium 40 mg 07/23/18 10:00 07/27/18 10:59 Lovenox SUB-Q 40 mg QDAY DANIEL Administration Furosemide 40 mg 07/23/18 06:00 07/27/18 05:40 Lasix IV 40 mg BID@0600,1800 DANIEL Administration Lisinopril 5 mg 07/23/18 12:00 07/27/18 11:00 Zestril PO 5 mg QDAY DANIEL Administration Metoprolol Tartrate 50 mg 07/23/18 12:00 07/27/18 10:59 Lopressor PO 50 mg BID DANIEL Administration Ondansetron HCl 4 mg 07/22/18 21:59 Zofran IV Q8H PRN Nausea And Vomiting Sodium Chloride 10 ml 07/22/18 22:00 07/27/18 10:59 Sodium Chloride Flush Syringe 10 Ml IV 10 ml BID DANIEL Administration Sodium Chloride 10 ml 07/22/18 21:59 Sodium Chloride Flush Syringe 10 Ml IV PRN PRN LINE FLUSH Nutrition/Malnutrition Assess - Dietary Evaluation Nutrition/Malnutrition Findings: Nutrition Notes Start: 07/23/18 15:03 Freq: Status: Active Protocol: Document 07/26/18 16:07 RM (Rec: 07/26/18 16:11 RM [id number]) Nutrition Notes Initial or Follow up Reassessment Current Diagnosis Diabetes,Hypertension,Heart Failure Other Pertinent Diagnosis Obesity, Noncompliant, Lower extremity edema Current Diet NPO Labs/Tests Reviewed Pertinent Medications Lasix Height 5 ft 3 in Weight 152.7 kg [place] Body Weight (kg) 52.27 BMI 59.6 Subjective/Other Information Pt not in room at time of visit. Recorded PO intake prior to NPO status 75% X 1 meal. Per tech pt drank the Glucerna. Percent of energy/protein needs met: 79%/89% (before NPO) Burn Absent Trauma Absent #2 Nutrition Diagnosis Food and nutrition-related knowledge deficit As Evidenced by Signs and Symptoms pt received diet education Diagnosis Progress(for reassessment Resolved documentation) #1 Nutrition Diagnosis Malnutrition Diagnosis Progress(for reassessment Continues documentation) Is patient on ventilator? No Is Patient Ambulatory and/or Out of Bed Yes REE-([place]-ambulatory/OOB) [ 2679.469 NUTR.MSJOOB] Kcal/Kg value to use for calculation 14 Approximate Energy Requirements Using 2138 kcal/Kg Calculation Used for Recommendations Kcal/kg Additional Notes Protein Needs: 82-102g (0.8-1g /kg 102kg adjBW) Fluid Needs: 1 ml/kcal Nutrition Intervention Change Diet Order: Advance diet when medically able Add Supplement/Snack (indicate name/kcal Glucerna 1 daily /protein ) Provides kCal: 220 Provides Protein (gm) 10 Goal #1 Continue to meet at least 75% of calorie and protein needs via PO and ONS intakes Follow-Up By: 08/02/18 Additional Comments Follow for PO intakes
[2018-07-28] MEDS: SODIUM CHLORIDE FLUSH SYRINGE 10 ML IV PRN (06:27)
[2018-07-28] MEDS: LASIX IV SCH ×2 (06:27→18:38)
[2018-07-28] MEDS: BABY ASPIRIN PO SCH (10:59)
[2018-07-28] MEDS: LOPRESSOR PO SCH ×3 (10:59→22:40)
[2018-07-28] MEDS: ZESTRIL PO SCH (10:59)
[2018-07-28] MEDS: LOVENOX SUB-Q SCH (10:59)
[2018-07-28] MEDS: SODIUM CHLORIDE FLUSH SYRINGE 10 ML IV SCH ×2 (11:06→22:40)
--- NOTE | 2018-07-28 12:00 | Progress Note ---
Assessment and Plan Acute hypoxic respiratory failure on 3L NC Acute on chronic systolic heart failure: COPD Hypertension Diabetes Mellitus: Extreme Obesity, bmi 59.2 Metabolic alkalosis - Continue supplemental oxygen, wean for O2 sats > 90% - continue bronchodilators per protocol - continue diuresis as tolerated by renal function and hemodynamics - Heart failure measures per cardiology team - PT/OT/increase ambulation as tolerated - Out patient sleep study is appropriate - Nocturnal CPAP as tolerated - Cardioprotective measures - Glycemic control with SSI for target BG < 180 mg/dl - Weight loss and lifestyle modifications - Need for medical compliance discussed - Await cardiac stress test - VTE prophylaxis ... re-evaluate in am & prn Subjective Date of service: 07/28/18 Principal diagnosis: Ac hypoxemic resp failure; Ac on ch HFrEF; COPD; HTN; DM II; Obesity Interval history: Patient is seen today for: Acute hypoxic respiratory failure on 3L NC; Acute on chronic systolic heart failure; COPD; Hypertension; Diabetes Mellitus Seen and examined at bedside; 24hour events reviewed; nursing and respiratory care staff consulted; no adverse overnight events reported to me; resting in bed; reported NSVT overnight; denies acute chest pains or palpitations; No N/V /F/C Objective Vital Signs - 12hr 07/28/18 07/28/18 07/28/18 02:41 06:36 09:00 Temperature 97.4 F L 97.3 F L Pulse Rate 72 71 Respiratory 24 20 Rate Respiratory 18 Rate [ Generalized] Blood Pressure 142/73 Blood Pressure 114/55 [Right] O2 Sat by Pulse 99 Oximetry 07/28/18 10:59 Temperature Pulse Rate Respiratory Rate Respiratory Rate [ Generalized] Blood Pressure 168/78 Blood Pressure [Right] O2 Sat by Pulse Oximetry Constitutional: alert, appears uncomfortable, other (elderly looking, morbidly obese AAF with mild respiratory distress) Eyes: non-icteric ENT: oropharynx moist, other (Mallampati 4) Neck: supple, no JVD, other (no thyromegaly) Effort: mildly labored Ascultation: Bilateral: clear, diminished breath sounds Percussion: Bilateral: not dull Cardiovascular: regular rate and rhythm Gastrointestinal: normoactive bowel sounds, soft, non-tender, non-distended, other (No HSM) Integumentary: rash (stasis dernatitis type rash to workman's bilateraly) Extremities: no cyanosis, cool, edema Neurologic: normal mental status, non-focal exam, pupils equal and round, CN II- XII normal, motor strength normal and Psychiatric: mood appropriate, affect normal CBC and BMP: 07/24/18 06:07 07/28/18 13:01 ABG, PT/INR, D-dimer: PT/INR, D-dimer PT 15.5 Sec. (12.2-14.9) H 07/22/18 19:35 INR 1.16 (0.87-1.13) H 07/22/18 19:35 Abnormal lab findings: Abnormal Labs 07/22/18 07/22/18 07/22/18 19:25 19:35 19:35 WBC RBC 5.07 H Hgb 14.4 H Hct 45.9 H RDW 17.2 H [place] % (Auto) 13.1 H Lymph # PT 15.5 H INR 1.16 H Chloride 94.4 L Carbon Dioxide 35 H BUN 5 L Creatinine 0.5 L Glucose 118 H POC Glucose Magnesium NT-Pro-B Natriuret Pep Total Protein 8.3 H Albumin 3.3 L 07/22/18 07/23/18 07/23/18 19:36 07:24 07:24 WBC 4.2 L RBC Hgb Hct 43.8 H RDW 16.8 H [place] % (Auto) 15.2 H Lymph # 1.1 L PT INR Chloride 95.1 L Carbon Dioxide 37 H BUN 6 L Creatinine 0.5 L Glucose 148 H POC Glucose Magnesium NT-Pro-B Natriuret Pep 3049 H Total Protein Albumin 07/23/18 07/24/18 07/24/18 11:46 06:07 06:07 WBC 3.5 L RBC Hgb Hct 43.3 H RDW 17.4 H [place] % (Auto) Lymph # PT INR Chloride 94.3 L Carbon Dioxide 34 H BUN Creatinine 0.4 L Glucose 149 H POC Glucose 119 H Magnesium 1.40 L NT-Pro-B Natriuret Pep Total Protein Albumin 07/24/18 07/24/18 07/24/18 08:06 11:49 21:34 WBC RBC Hgb Hct RDW [place] % (Auto) Lymph # PT INR Chloride Carbon Dioxide BUN Creatinine Glucose POC Glucose 115 H 143 H 118 H Magnesium NT-Pro-B Natriuret Pep Total Protein Albumin 07/25/18 07/25/18 07/25/18 08:47 11:26 16:00 WBC RBC Hgb Hct RDW [place] % (Auto) Lymph # PT INR Chloride Carbon Dioxide BUN Creatinine Glucose POC Glucose 110 H 110 H 118 H Magnesium NT-Pro-B Natriuret Pep Total Protein Albumin 07/25/18 07/26/18 07/27/18 20:58 21:36 07:59 WBC RBC Hgb Hct RDW [place] % (Auto) Lymph # PT INR Chloride Carbon Dioxide BUN Creatinine Glucose POC Glucose 118 H 130 H 114 H Magnesium NT-Pro-B Natriuret Pep Total Protein Albumin 07/27/18 07/27/18 07/28/18 11:38 16:33 07:57 WBC RBC Hgb Hct RDW [place] % (Auto) Lymph # PT INR Chloride Carbon Dioxide BUN Creatinine Glucose POC Glucose 134 H 114 H 111 H Magnesium NT-Pro-B Natriuret Pep Total Protein Albumin Chest x-ray: image reviewed Allied health notes reviewed: nursing
--- NOTE | 2018-07-28 12:27 | Progress Note ---
Assessment and Plan called back to see pt due to nsvt * reviewed tele - 21 beats at 9p yesterday - no sx * remains asx, feels fine increase BB check bmp, mg stress mpi from 07/26 neg for ischemia, ef ~40% - Patient Problems (1) Acute HFrEF (heart failure with reduced ejection fraction) Current Visit: Yes Status: Acute (2) Acute respiratory failure with hypoxia Current Visit: Yes Status: Acute (3) NSVT (nonsustained ventricular tachycardia) Current Visit: Yes Status: Acute (4) COPD (chronic obstructive pulmonary disease) Current Visit: Yes Status: Chronic (5) Noncompliance with medication regimen Current Visit: Yes Status: Chronic (6) Obesity Current Visit: Yes Status: Chronic (7) Uncontrolled hypertension Current Visit: Yes Status: Chronic Subjective Date of service: 07/28/18 Principal diagnosis: Ac hypoxemic resp failure; Ac on ch HFrEF; COPD; HTN; DM II; Obesity Objective Vital Signs Temp Pulse Resp Resp BP BP Pulse Ox 07/28/18 10:59 168/78 07/28/18 09:00 18 07/28/18 06:36 97.3 F L 71 20 142/73 99 07/28/18 02:41 97.4 F L 72 24 114/55 07/27/18 23:16 97.6 F 77 20 127/74 93 07/27/18 22:50 71 156/83 07/27/18 22:00 24 98 07/27/18 21:23 94 07/27/18 16:42 98.3 F 73 20 149/78 95 07/27/18 13:00 67 - Physical Examination General: No Apparent Distress Neck: Positive: neck supple Abdomen: Positive: Distended Skin: Positive: Clear Extremities: Present: +1 Edema, warm - Imaging and Cardiology EKG: report reviewed (sinus tachycardia, RBBB) Echo: report reviewed (03/22/18: EF 35-40%, [id number] LVH, npdd-[id number] TR) - EKG Sinus rhythms and dysrhythmias: sinus tachycardia AV and intraventricular conduction: right bundle branch block - Allied health notes Allied health notes reviewed: nursing
[2018-07-28 13:27] LABS: BUN/Creatinine Ratio 23; Blood Urea Nitrogen 9 mg/dL (7-17); Calcium 9.1 mg/dL (8.4-10.2); Hemolysis Index 16
--- NOTE | 2018-07-28 14:21 | Progress Note ---
Assessment and Plan Assessment and plan: Patient is a 63 yo woman with a history of CHF, EF of 35%, hypertension, diabetes mellitus and morbid obesity who presents with sob. * pCXR IMPRESSION: COPD Left lower lung and left costophrenic angle are obscured by the cardiac shadow. Any underlying infiltrates and left pleural effusion cannot be excluded. A two-view chest study is recommended whenever the patient's condition permits Acute hypoxic respiratory failure, on 3 liters on O2; try to wean off O2, treat the heart failure,Cardiology input noted, consulted Pulmonology, input noted Acute on chronic systolic heart failure: diuresis, Cardiology consulted, input noted COPD; consulted Pulmonology Hypertension, uncontrolled: low salt diet, Diabetes Mellitus: ssi Morbid Obesity, bmi 59.2: primary substance abuse counselor on outpatient NIKKI screen Noncompliant: continued primary substance abuse counselor on compliance NSVT asymptomatic: Cardiology evaluated, input noted, increase bblocker Awaiting placement pending History Interval history: Patient was seen and examined. Follow-up on current diagnosis of CHF, respiratory failure on 3 Liters. overnight events reported to me was NSVT. Patient denies any chest pain, nausea/vomiting or severe headaches. Imaging, nursing note, chart, labs and old chart reviewed. Discussed with patient. Hospitalist Physical - Physical exam Narrative exam: Gen: WDWN, NAD, Awake, Alert, Orientated x 3,morbid obese bmi 59.2 HEENT: NCAT, EOMI, PERRL, OP Clear Neck: supple, no adenopathy, no thyromegaly, no JVD CVS/Heart: RRR, normal S1S2, pulses present bilaterally Chest/Lungs: diminished bd bilateral, Symmetrical chest expansion, good air entry bilaterally GI/Abdomen: soft, NTND, good bowel sounds, no guarding or rebound /Bladder: no suprapubic tenderness, no CVA or paraspinal tenderness Extermity/Skin: no c/c/e, no obvious rash MSK: FROM x 4 Neuro: CN 2-12 grossly intact, no new focal deficits Psych: calm - Constitutional Vitals: Temp Pulse Resp BP Pulse Ox 98.0 F 79 20 147/60 97 07/28/18 11:50 07/28/18 13:00 07/28/18 11:50 07/28/18 11:50 07/28/18 11:55 General appearance: Absent: mild distress Results - Labs CBC & Chem 7: 07/24/18 06:07 07/28/18 13:01 Labs: Laboratory Last Values WBC 3.5 K/mm3 (4.5-11.0) L 07/24/18 06:07 RBC 4.82 M/mm3 (3.65-5.03) 07/24/18 06:07 Hgb 13.7 gm/dl (10.1-14.3) 07/24/18 06:07 Hct 43.3 % (30.3-42.9) H 07/24/18 06:07 MCV 90 fl (79-97) 07/24/18 06:07 MCH 28 pg (28-32) 07/24/18 06:07 MCHC 32 % (30-34) 07/24/18 06:07 RDW 17.4 % (13.2-15.2) H 07/24/18 06:07 Plt Count 288 K/mm3 (140-440) 07/24/18 06:07 Lymph % (Auto) 26.2 % (13.4-35.0) 07/23/18 07:24 [place] % (Auto) 15.2 % (0.0-7.3) H 07/23/18 07:24 Eos % (Auto) 3.6 % (0.0-4.3) 07/23/18 07:24 Baso % (Auto) 0.9 % (0.0-1.8) 07/23/18 07:24 Lymph # 1.1 K/mm3 (1.2-5.4) L 07/23/18 07:24 [place] # 0.6 K/mm3 (0.0-0.8) 07/23/18 07:24 Eos # 0.2 K/mm3 (0.0-0.4) 07/23/18 07:24 Baso # 0.0 K/mm3 (0.0-0.1) 07/23/18 07:24 Seg Neutrophils % 54.1 % (40.0-70.0) 07/23/18 07:24 Seg Neutrophils # 2.3 K/mm3 (1.8-7.7) 07/23/18 07:24 PT 15.5 Sec. (12.2-14.9) H 07/22/18 19:35 INR 1.16 (0.87-1.13) H 07/22/18 19:35 APTT 34.6 Sec. (24.2-36.6) 07/22/18 19:35 Sodium 140 mmol/L (137-145) 07/28/18 13:01 Potassium 3.6 mmol/L (3.6-5.0) 07/28/18 13:01 Chloride 88.9 mmol/L (98-107) L 07/28/18 13:01 Carbon Dioxide 42 mmol/L (22-30) H* D 07/28/18 13:01 13 mmol/L 07/28/18 13:01 BUN 9 mg/dL (7-17) 07/28/18 13:01 0.4 mg/dL (0.7-1.2) L 07/28/18 13:01 Estimated GFR > 60 ml/min 07/28/18 13:01 23 % 07/28/18 13:01 Glucose 103 mg/dL (65-100) H 07/28/18 13:01 POC Glucose 132 (70-105) H 07/28/18 11:52 Calcium 9.1 mg/dL (8.4-10.2) 07/28/18 13:01 Magnesium 1.70 mg/dL (1.7-2.3) 07/28/18 13:01 0.70 mg/dL (0.1-1.2) 07/22/18 19:35 AST 22 units/L (5-40) 07/22/18 19:35 ALT 10 units/L (7-56) 07/22/18 19:35 69 units/L (35-129) 07/22/18 19:35 90 units/L (30-135) 07/23/18 07:24 CK-MB (CK-2) 2.5 ng/mL (0.0-4.0) 07/23/18 07:24 CK-MB (CK-2) Rel Index 2.7 (0-4) 07/23/18 07:24 0.019 ng/mL (0.00-0.029) 07/23/18 07:24 NT-Pro-B Natriuret Pep 3049 pg/mL (0-900) H 07/22/18 19:36 8.3 g/dL (6.3-8.2) H 07/22/18 19:35 3.3 g/dL (3.9-5) L 07/22/18 19:35 0.7 % 07/22/18 19:35 Active Medications - Current Medications Current Medications: Generic Name Dose Route Start Last Admin Trade Name Freq PRN Reason Stop Dose Admin Acetaminophen 650 mg 07/22/18 21:59 07/24/18 18:28 Tylenol PO 650 mg Q4H PRN Administration Pain MILD(1-3)/Fever >100.5/KIMBALL Aspirin 81 mg 07/23/18 10:00 07/28/18 10:59 Baby Aspirin PO 81 mg QDAY DANIEL Administration Dextrose 50 ml 07/22/18 22:06 D50w (25gm) Syringe IV PRN PRN Hypoglycemia Enoxaparin Sodium 40 mg 07/23/18 10:00 07/28/18 10:59 Lovenox SUB-Q 40 mg QDAY DANIEL Administration Furosemide 40 mg 07/23/18 06:00 07/28/18 06:27 Lasix IV 40 mg BID@0600,1800 DANIEL Administration Lisinopril 5 mg 07/23/18 12:00 07/28/18 10:59 Zestril PO 5 mg QDAY DANIEL Administration Metoprolol Tartrate 75 mg 07/28/18 14:00 Lopressor PO BID DANIEL Ondansetron HCl 4 mg 07/22/18 21:59 Zofran IV Q8H PRN Nausea And Vomiting Sodium Chloride 10 ml 07/22/18 22:00 07/28/18 11:06 Sodium Chloride Flush Syringe 10 Ml IV 10 ml BID DANIEL Administration Sodium Chloride 10 ml 07/22/18 21:59 07/28/18 06:27 Sodium Chloride Flush Syringe 10 Ml IV 10 ml PRN PRN Administration LINE FLUSH Nutrition/Malnutrition Assess - Dietary Evaluation Nutrition/Malnutrition Findings: Nutrition Notes Start: 07/23/18 15:03 Freq: Status: Active Protocol: Document 07/26/18 16:07 RM (Rec: 07/26/18 16:11 RM [id number]) Nutrition Notes Initial or Follow up Reassessment Current Diagnosis Diabetes,Hypertension,Heart Failure Other Pertinent Diagnosis Obesity, Noncompliant, Lower extremity edema Current Diet NPO Labs/Tests Reviewed Pertinent Medications Lasix Height 5 ft 3 in Weight 152.7 kg [place] Body Weight (kg) 52.27 BMI 59.6 Subjective/Other Information Pt not in room at time of visit. Recorded PO intake prior to NPO status 75% X 1 meal. Per tech pt drank the Glucerna. Percent of energy/protein needs met: 79%/89% (before NPO) Burn Absent Trauma Absent #2 Nutrition Diagnosis Food and nutrition-related knowledge deficit As Evidenced by Signs and Symptoms pt received diet education Diagnosis Progress(for reassessment Resolved documentation) #1 Nutrition Diagnosis Malnutrition Diagnosis Progress(for reassessment Continues documentation) Is patient on ventilator? No Is Patient Ambulatory and/or Out of Bed Yes REE-([facility]-ambulatory/OOB) [ 2679.469 NUTR.MSJOOB] Kcal/Kg value to use for calculation 14 Approximate Energy Requirements Using 2138 kcal/Kg Calculation Used for Recommendations Kcal/kg Additional Notes Protein Needs: 82-102g (0.8-1g /kg 102kg adjBW) Fluid Needs: 1 ml/kcal Nutrition Intervention Change Diet Order: Advance diet when medically able Add Supplement/Snack (indicate name/kcal Glucerna 1 daily /protein ) Provides kCal: 220 Provides Protein (gm) 10 Goal #1 Continue to meet at least 75% of calorie and protein needs via PO and ONS intakes Follow-Up By: 08/02/18 Additional Comments Follow for PO intakes
[2018-07-29] MEDS: LASIX IV SCH ×2 (06:25→19:54)
--- NOTE | 2018-07-29 10:21 | Progress Note ---
Assessment and Plan Assessment and plan: Patient is a 63 yo woman with a history of CHF, EF of 35%, hypertension, diabetes mellitus and morbid obesity who presents with sob. * pCXR IMPRESSION: COPD Left lower lung and left costophrenic angle are obscured by the cardiac shadow. Any underlying infiltrates and left pleural effusion cannot be excluded. A two-view chest study is recommended whenever the patient's condition permits Acute hypoxic respiratory failure, on 3 liters on O2; try to wean off O2, treat the heart failure,Cardiology input noted, consulted Pulmonology, input noted Acute on chronic systolic heart failure: diuresis, Cardiology consulted, input noted COPD; consulted Pulmonology Hypertension, uncontrolled: low salt diet, Diabetes Mellitus: ssi Morbid Obesity, bmi 59.2: securities counselor on outpatient NIKKI screen Noncompliant: continued securities counselor on compliance NSVT asymptomatic: Cardiology evaluated, input noted, increase bblocker Awaiting placement pending History Interval history: Patient was seen and examined. Follow-up on current diagnosis of CHF, respiratory failure on 3 Liters. overnight events reported to me was NSVT. Patient denies any chest pain, nausea/vomiting or severe headaches. Imaging, nursing note, chart, labs and old chart reviewed. Discussed with patient. Hospitalist Physical - Physical exam Narrative exam: Gen: WDWN, NAD, Awake, Alert, Orientated x 3,morbid obese bmi 59.2 HEENT: NCAT, EOMI, PERRL, OP Clear Neck: supple, no adenopathy, no thyromegaly, no JVD CVS/Heart: RRR, normal S1S2, pulses present bilaterally Chest/Lungs: diminished bd bilateral, Symmetrical chest expansion, good air entry bilaterally GI/Abdomen: soft, NTND, good bowel sounds, no guarding or rebound /Bladder: no suprapubic tenderness, no CVA or paraspinal tenderness Extermity/Skin: no c/c/e, no obvious rash MSK: FROM x 4 Neuro: CN 2-12 grossly intact, no new focal deficits Psych: calm - Constitutional Vitals: Temp Pulse Resp BP Pulse Ox 97.4 F L 71 20 141/77 95 07/28/18 22:25 07/29/18 05:21 07/29/18 05:21 07/29/18 05:21 07/29/18 05:21 General appearance: Absent: mild distress Results - Labs CBC & Chem 7: 07/24/18 06:07 07/28/18 13:01 Labs: Laboratory Last Values WBC 3.5 K/mm3 (4.5-11.0) L 07/24/18 06:07 RBC 4.82 M/mm3 (3.65-5.03) 07/24/18 06:07 Hgb 13.7 gm/dl (10.1-14.3) 07/24/18 06:07 Hct 43.3 % (30.3-42.9) H 07/24/18 06:07 MCV 90 fl (79-97) 07/24/18 06:07 MCH 28 pg (28-32) 07/24/18 06:07 MCHC 32 % (30-34) 07/24/18 06:07 RDW 17.4 % (13.2-15.2) H 07/24/18 06:07 Plt Count 288 K/mm3 (140-440) 07/24/18 06:07 Lymph % (Auto) 26.2 % (13.4-35.0) 07/23/18 07:24 [place] % (Auto) 15.2 % (0.0-7.3) H 07/23/18 07:24 Eos % (Auto) 3.6 % (0.0-4.3) 07/23/18 07:24 Baso % (Auto) 0.9 % (0.0-1.8) 07/23/18 07:24 Lymph # 1.1 K/mm3 (1.2-5.4) L 07/23/18 07:24 [place] # 0.6 K/mm3 (0.0-0.8) 07/23/18 07:24 Eos # 0.2 K/mm3 (0.0-0.4) 07/23/18 07:24 Baso # 0.0 K/mm3 (0.0-0.1) 07/23/18 07:24 Seg Neutrophils % 54.1 % (40.0-70.0) 07/23/18 07:24 Seg Neutrophils # 2.3 K/mm3 (1.8-7.7) 07/23/18 07:24 PT 15.5 Sec. (12.2-14.9) H 07/22/18 19:35 INR 1.16 (0.87-1.13) H 07/22/18 19:35 APTT 34.6 Sec. (24.2-36.6) 07/22/18 19:35 Sodium 140 mmol/L (137-145) 07/28/18 13:01 Potassium 3.6 mmol/L (3.6-5.0) 07/28/18 13:01 Chloride 88.9 mmol/L (98-107) L 07/28/18 13:01 Carbon Dioxide 42 mmol/L (22-30) H* D 07/28/18 13:01 13 mmol/L 07/28/18 13:01 BUN 9 mg/dL (7-17) 07/28/18 13:01 0.4 mg/dL (0.7-1.2) L 07/28/18 13:01 Estimated GFR > 60 ml/min 07/28/18 13:01 23 % 07/28/18 13:01 Glucose 103 mg/dL (65-100) H 07/28/18 13:01 POC Glucose 109 (70-105) H 07/29/18 07:51 Calcium 9.1 mg/dL (8.4-10.2) 07/28/18 13:01 Magnesium 1.70 mg/dL (1.7-2.3) 07/28/18 13:01 0.70 mg/dL (0.1-1.2) 07/22/18 19:35 AST 22 units/L (5-40) 07/22/18 19:35 ALT 10 units/L (7-56) 07/22/18 19:35 69 units/L (35-129) 07/22/18 19:35 90 units/L (30-135) 07/23/18 07:24 CK-MB (CK-2) 2.5 ng/mL (0.0-4.0) 07/23/18 07:24 CK-MB (CK-2) Rel Index 2.7 (0-4) 07/23/18 07:24 0.019 ng/mL (0.00-0.029) 07/23/18 07:24 NT-Pro-B Natriuret Pep 3049 pg/mL (0-900) H 07/22/18 19:36 8.3 g/dL (6.3-8.2) H 07/22/18 19:35 3.3 g/dL (3.9-5) L 07/22/18 19:35 0.7 % 07/22/18 19:35 Active Medications - Current Medications Current Medications: Generic Name Dose Route Start Last Admin Trade Name Freq PRN Reason Stop Dose Admin Acetaminophen 650 mg 07/22/18 21:59 07/24/18 18:28 Tylenol PO 650 mg Q4H PRN Administration Pain MILD(1-3)/Fever >100.5/KIMBALL Aspirin 81 mg 07/23/18 10:00 07/28/18 10:59 Baby Aspirin PO 81 mg QDAY DANIEL Administration Dextrose 50 ml 07/22/18 22:06 D50w (25gm) Syringe IV PRN PRN Hypoglycemia Enoxaparin Sodium 40 mg 07/23/18 10:00 07/28/18 10:59 Lovenox SUB-Q 40 mg QDAY DANIEL Administration Furosemide 40 mg 07/23/18 06:00 07/29/18 06:25 Lasix IV 40 mg BID@0600,1800 DANIEL Administration Lisinopril 5 mg 07/23/18 12:00 07/28/18 10:59 Zestril PO 5 mg QDAY DANIEL Administration Metoprolol Tartrate 75 mg 07/28/18 14:00 07/28/18 22:40 Lopressor PO 75 mg BID DANIEL Administration Ondansetron HCl 4 mg 07/22/18 21:59 Zofran IV Q8H PRN Nausea And Vomiting Sodium Chloride 10 ml 07/22/18 22:00 07/28/18 22:40 Sodium Chloride Flush Syringe 10 Ml IV 10 ml BID DANIEL Administration Sodium Chloride 10 ml 07/22/18 21:59 07/28/18 06:27 Sodium Chloride Flush Syringe 10 Ml IV 10 ml PRN PRN Administration LINE FLUSH Nutrition/Malnutrition Assess - Dietary Evaluation Nutrition/Malnutrition Findings: Nutrition Notes Start: 07/23/18 15:03 Freq: Status: Active Protocol: Document 07/26/18 16:07 RM (Rec: 07/26/18 16:11 RM [email or web address]) Nutrition Notes Initial or Follow up Reassessment Current Diagnosis Diabetes,Hypertension,Heart Failure Other Pertinent Diagnosis Obesity, Noncompliant, Lower extremity edema Current Diet NPO Labs/Tests Reviewed Pertinent Medications Lasix Height 5 ft 3 in Weight 152.7 kg [place] Body Weight (kg) 52.27 BMI 59.6 Subjective/Other Information Pt not in room at time of visit. Recorded PO intake prior to NPO status 75% X 1 meal. Per tech pt drank the Glucerna. Percent of energy/protein needs met: 79%/89% (before NPO) Burn Absent Trauma Absent #2 Nutrition Diagnosis Food and nutrition-related knowledge deficit As Evidenced by Signs and Symptoms pt received diet education Diagnosis Progress(for reassessment Resolved documentation) #1 Nutrition Diagnosis Malnutrition Diagnosis Progress(for reassessment Continues documentation) Is patient on ventilator? No Is Patient Ambulatory and/or Out of Bed Yes REE-([facility]-ambulatory/OOB) [ 2679.469 NUTR.MSJOOB] Kcal/Kg value to use for calculation 14 Approximate Energy Requirements Using 2138 kcal/Kg Calculation Used for Recommendations Kcal/kg Additional Notes Protein Needs: 82-102g (0.8-1g /kg 102kg adjBW) Fluid Needs: 1 ml/kcal Nutrition Intervention Change Diet Order: Advance diet when medically able Add Supplement/Snack (indicate name/kcal Glucerna 1 daily /protein ) Provides kCal: 220 Provides Protein (gm) 10 Goal #1 Continue to meet at least 75% of calorie and protein needs via PO and ONS intakes Follow-Up By: 08/02/18 Additional Comments Follow for PO intakes
[2018-07-29] MEDS: LOVENOX SUB-Q SCH (10:59)
[2018-07-29] MEDS: LOPRESSOR PO SCH ×2 (10:59→23:26)
[2018-07-29] MEDS: BABY ASPIRIN PO SCH (11:00)
[2018-07-29] MEDS: ZESTRIL PO SCH (11:00)
[2018-07-29] MEDS: SODIUM CHLORIDE FLUSH SYRINGE 10 ML IV SCH ×2 (11:01→23:27)
--- NOTE | 2018-07-29 11:50 | Progress Note ---
Assessment and Plan called back to see pt due to nsvt * remains asx, feels fine increase BB, monitor lytes. stress mpi from 07/26 neg for ischemia, ef ~40% Nothing further to add from cardiac perspective at this time. Will sign off. Recommend pt follow up in our office with Dr. Benitez within 3-5 days of hospital discharge ([phone]). The patient has been seen in conjunction with Dr. Bazan who agrees with the assessment and plan of care. - Patient Problems (1) Acute HFrEF (heart failure with reduced ejection fraction) Current Visit: Yes Status: Acute (2) Acute on chronic respiratory failure Current Visit: Yes Status: Acute (3) COPD (chronic obstructive pulmonary disease) Current Visit: Yes Status: Chronic (4) Cardiomyopathy Current Visit: Yes Status: Chronic (5) NSVT (nonsustained ventricular tachycardia) Current Visit: Yes Status: Acute (6) Uncontrolled hypertension Current Visit: Yes Status: Chronic (7) Noncompliance with medication regimen Current Visit: Yes Status: Chronic (8) Obesity Current Visit: Yes Status: Chronic Subjective Date of service: 07/29/18 Principal diagnosis: Ac hypoxemic resp failure; Ac on ch HFrEF; COPD; HTN; DM II; Obesity Interval history: pt resting in bed, no current complaints. tele reviewed - she had an additional 30 beat run NSVT overnight, pt symptomatic. Objective Vital Signs Temp Pulse Resp BP Pulse Ox 07/29/18 11:00 73 141/77 07/29/18 10:59 73 141/77 07/29/18 05:21 71 20 141/77 95 07/28/18 22:40 67 152/80 07/28/18 22:25 97.4 F L 70 20 149/70 81 L 07/28/18 22:00 20 93 07/28/18 21:00 65 07/28/18 17:20 98.1 F 69 22 109/54 99 07/28/18 14:28 122/64 07/28/18 13:00 79 07/28/18 11:55 79 97 07/28/18 11:50 98.0 F 78 20 147/60 86 - Physical Examination General: No Apparent Distress Neck: Positive: neck supple Abdomen: Positive: Distended Skin: Positive: Clear Extremities: Present: +1 Edema, warm - Labs and Meds Comprehensive Metabolic Panel 07/28/18 Range/Units 13:01 Sodium 140 (137-145) mmol/L Potassium 3.6 (3.6-5.0) mmol/L Chloride 88.9 L (98-107) mmol/L Carbon Dioxide 42 H* D (22-30) mmol/L BUN 9 (7-17) mg/dL Creatinine 0.4 L (0.7-1.2) mg/dL Glucose 103 H (65-100) mg/dL Calcium 9.1 (8.4-10.2) mg/dL - Imaging and Cardiology EKG: report reviewed (sinus tachycardia, RBBB) Echo: report reviewed (03/22/18: EF 35-40%, [id number]-el-watvzg LVH, [id number]-mudhtcqi TR) - EKG Sinus rhythms and dysrhythmias: sinus tachycardia AV and intraventricular conduction: right bundle branch block - Allied health notes Allied health notes reviewed: nursing
[2018-07-29] MEDS ORDERED: K-DUR PO ONE (12:00)
[2018-07-29] MEDS ORDERED: MAGNESIUM SULFATE 1 GM in NACL 0.9% 50 ML IV ONE (13:00)
--- NOTE | 2018-07-29 19:29 | Progress Note ---
Assessment and Plan 63-year-old female with a past medical history morbid obesity, CHF, and hypertension presents from a primary care doctor office with complaints of shortness of breath. Patient had a scheduled revisit. Patient states he is having similar symptoms that she was having when she was admitted here in March for newly diagnosed CHF. Patient states when her prescriptions ran out from her March admission she did not continue the medication because there were no refills she did not understand that she was supposed to follow-up with her doctor for additional medication. She complains of worsening orthopnea, PND, dyspnea on exertion and occasional dry cough. She denies any chest pain. She cannot recall the name of her primary care doctor. As per medical record ejection fraction 35-40% on March 2018 ECHO Patient morbidly Obese, Awake. Patient presently on 3 litres O2.O2 saturation 98%. No acute respiratory distress at this time. Patient has history of smoking 1 pack/ 2 weeks for 20 years. Stopped smoking in year 2013. Denies alcohol or drug abuse. Patient single. No children. 07/29/18 Patient morbidly Obese.Patient alert, awake. Resting on 2 litres O2. O2 saturation 97%.No acute respiratory distress at rest at this time. - Patient Problems (1) Acute respiratory failure with hypoxia Current Visit: Yes Status: Acute Plan to address problem: O2 2 litres via nasal canula Albuterol/atrovent aerosol treatments q 6 hours. Continue S/C Lovenox. Patient refusing blood gases. (2) CHF exacerbation Current Visit: Yes Status: Acute Plan to address problem: Patient is on Lasix. Management as per cardiology. (3) Obesity Current Visit: Yes Status: Chronic Plan to address problem: Recommend to loose weight. Recommend sleep study as out patient. (4) Uncontrolled hypertension Current Visit: Yes Status: Chronic Plan to address problem: Management as per primary care. Subjective Date of service: 07/29/18 Principal diagnosis: Ac hypoxemic resp failure; Ac on ch HFrEF; COPD; HTN; DM II; Obesity Interval history: Patient morbidly Obese.Patient alert, awake. Resting on 2 litres O2. O2 saturation 97%.No acute respiratory distress at rest at this time. Objective Vital Signs - 12hr 07/29/18 07/29/18 07/29/18 10:00 10:59 11:00 Temperature Pulse Rate 73 73 Respiratory 20 Rate Blood Pressure 141/77 141/77 O2 Sat by Pulse 95 Oximetry 07/29/18 07/29/18 12:19 17:00 Temperature 97.6 F 98.1 F Pulse Rate 69 73 Respiratory 22 22 Rate Blood Pressure 148/79 164/92 O2 Sat by Pulse 95 92 Oximetry Constitutional: no acute distress, alert, other (elderly looking, morbidly obese AAF with mild respiratory distress) Eyes: non-icteric ENT: oropharynx moist, other (Mallampati 4) Neck: supple, no JVD, other (no thyromegaly) Effort: mildly labored Ascultation: Bilateral: diminished breath sounds Percussion: Bilateral: not dull Cardiovascular: regular rate and rhythm Gastrointestinal: normoactive bowel sounds, soft, non-tender, non-distended, other (No HSM) Integumentary: rash (stasis dernatitis type rash to workman's bilateraly) Extremities: no cyanosis, cool, edema Neurologic: normal mental status, non-focal exam, pupils equal and round, CN II- XII normal, motor strength normal and Psychiatric: mood appropriate, affect normal CBC and BMP: 07/24/18 06:07 07/28/18 13:01 ABG, PT/INR, D-dimer: PT/INR, D-dimer PT 15.5 Sec. (12.2-14.9) H 07/22/18 19:35 INR 1.16 (0.87-1.13) H 07/22/18 19:35 Abnormal lab findings: Abnormal Labs 07/22/18 07/22/18 07/22/18 19:25 19:35 19:35 WBC RBC 5.07 H Hgb 14.4 H Hct 45.9 H RDW 17.2 H [place] % (Auto) 13.1 H Lymph # PT 15.5 H INR 1.16 H Chloride 94.4 L Carbon Dioxide 35 H BUN 5 L Creatinine 0.5 L Glucose 118 H POC Glucose Magnesium NT-Pro-B Natriuret Pep Total Protein 8.3 H Albumin 3.3 L 07/22/18 07/23/18 07/23/18 19:36 07:24 07:24 WBC 4.2 L RBC Hgb Hct 43.8 H RDW 16.8 H [place] % (Auto) 15.2 H Lymph # 1.1 L PT INR Chloride 95.1 L Carbon Dioxide 37 H BUN 6 L Creatinine 0.5 L Glucose 148 H POC Glucose Magnesium NT-Pro-B Natriuret Pep 3049 H Total Protein Albumin 07/23/18 07/24/18 07/24/18 11:46 06:07 06:07 WBC 3.5 L RBC Hgb Hct 43.3 H RDW 17.4 H [place] % (Auto) Lymph # PT INR Chloride 94.3 L Carbon Dioxide 34 H BUN Creatinine 0.4 L Glucose 149 H POC Glucose 119 H Magnesium 1.40 L NT-Pro-B Natriuret Pep Total Protein Albumin 07/24/18 07/24/18 07/24/18 08:06 11:49 21:34 WBC RBC Hgb Hct RDW [place] % (Auto) Lymph # PT INR Chloride Carbon Dioxide BUN Creatinine Glucose POC Glucose 115 H 143 H 118 H Magnesium NT-Pro-B Natriuret Pep Total Protein Albumin 07/25/18 07/25/18 07/25/18 08:47 11:26 16:00 WBC RBC Hgb Hct RDW [place] % (Auto) Lymph # PT INR Chloride Carbon Dioxide BUN Creatinine Glucose POC Glucose 110 H 110 H 118 H Magnesium NT-Pro-B Natriuret Pep Total Protein Albumin 07/25/18 07/26/18 07/27/18 20:58 21:36 07:59 WBC RBC Hgb Hct RDW [place] % (Auto) Lymph # PT INR Chloride Carbon Dioxide BUN Creatinine Glucose POC Glucose 118 H 130 H 114 H Magnesium NT-Pro-B Natriuret Pep Total Protein Albumin 07/27/18 07/27/18 07/28/18 11:38 16:33 07:57 WBC RBC Hgb Hct RDW [place] % (Auto) Lymph # PT INR Chloride Carbon Dioxide BUN Creatinine Glucose POC Glucose 134 H 114 H 111 H Magnesium NT-Pro-B Natriuret Pep Total Protein Albumin 07/28/18 07/28/18 07/28/18 11:52 13:01 16:02 WBC RBC Hgb Hct RDW [place] % (Auto) Lymph # PT INR Chloride 88.9 L Carbon Dioxide 42 H* D BUN Creatinine 0.4 L Glucose 103 H POC Glucose 132 H 119 H Magnesium NT-Pro-B Natriuret Pep Total Protein Albumin 07/28/18 07/29/18 07/29/18 21:30 07:51 12:22 WBC RBC Hgb Hct RDW [place] % (Auto) Lymph # PT INR Chloride Carbon Dioxide BUN Creatinine Glucose POC Glucose 119 H 109 H 121 H Magnesium NT-Pro-B Natriuret Pep Total Protein Albumin 07/29/18 17:05 WBC RBC Hgb Hct RDW [place] % (Auto) Lymph # PT INR Chloride Carbon Dioxide BUN Creatinine Glucose POC Glucose 149 H Magnesium NT-Pro-B Natriuret Pep Total Protein Albumin Chest x-ray: report reviewed, image reviewed Additional Studies: Chest xray done 07/22/18 IMPRESSION: COPD Left lower lung and left costophrenic angle are obscured by the cardiac shadow. Any underlying infiltrates and left pleural effusion cannot be excluded. A two-view chest study is recommended whenever the patient's condition permits Allied health notes reviewed: nursing
[2018-07-30] MEDS: LASIX IV SCH ×2 (06:16→18:36)
--- NOTE | 2018-07-30 11:27 | Discharge Summary ---
Providers - Providers Date of Admission: 07/22/18 21:59 Date of discharge: 08/07/18 Attending physician: ROCHELLE HIGUERA 07/22/18 21:59 Consult to Physician [CONS] Routine Comment: Consulting Provider: KAYLIE FARLEY Physician Instructions: Reason For Exam: chf 07/24/18 16:08 Consult to Physician [CONS] Routine Comment: Consulting Provider: ALBERTO DAWSON Physician Instructions: Reason For Exam: COPD, ?NIKKI 07/25/18 10:35 Occupational Therapy Evaluate and Treat [CONS] Routine Comment: Reason For Exam: ADLs evaluation Physical Therapy Evaluation and Treat [CONS] Routine Comment: Reason For Exam: gait evaluation/ambulatory dysfunction Primary care physician: MARIE GEORGE Hospitalization Condition: Stable Hospital course: Brief history: Patient is a 63 yo woman with a history of CHF, EF of 35%, hypertension, diabetes mellitus and morbid obesity who presented to ER with c/o SOB. pCXR IMPRESSION: COPD Left lower lung and left costophrenic angle are obscured by the cardiac shadow. Any underlying infiltrates and left pleural effusion cannot be excluded. Exercise stress test: No evidence of reversible ischemia Discharge diagnosis and management: Acute hypoxic respiratory failure, - on 3 liters on O2; due to CHf and COPD exacerbation - Cardiology and Pulmonology consulted Acute on chronic systolic heart failure: - managed with diuresis, anti failure medications, Cardiology consulted, input noted - stress mpi from 07/26 neg for ischemia, ef ~40% - pt follow up in cardiology office with Dr. 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 NSVT asymptomatic: Cardiology evaluated, medical Mx, increased bblocker Physical debility- PT recommended JOCELYN but insurance denied, Patient will go home with PT Hospitalist Physical Gen: WDWN, NAD, Awake, Alert, Orientated x 3,morbid obese bmi 59.2 HEENT: NCAT, EOMI, PERRL, OP Clear Neck: supple, no adenopathy, no thyromegaly, no JVD CVS/Heart: RRR, normal S1S2, pulses present bilaterally Chest/Lungs: diminished bd bilateral, Symmetrical chest expansion, good air entry bilaterally GI/Abdomen: soft, NTND, good bowel sounds, no guarding or rebound /Bladder: no suprapubic tenderness, no CVA or paraspinal tenderness Extermity/Skin: no c/c/e, no obvious rash MSK: FROM x 4 Neuro: CN 2-12 grossly intact, no new focal deficits Psych: calm Disposition: DC/TX-06 HOME UNDER HOME HL Time spent for discharge: 34 minutes Core Measure Documentation - Palliative Care Palliative Care/ Comfort Measures: Not Applicable - Core Measures Any of the following diagnoses?: history only Exam - Constitutional Vitals: Temp Pulse Resp BP Pulse Ox 97.5 F L 67 24 136/65 95 07/30/18 04:49 07/30/18 04:49 07/30/18 04:49 07/30/18 04:49 07/30/18 08:17 Plan Activity: advance as tolerated, fall precautions Weight Bearing Status: Weight Bear as Tolerated Diet: low fat, low salt Special Instructions: home oxygen via (n/c 2L) Follow up with: MARIE GEORGE MD [Primary Care Provider] - 7 Days Prescriptions: AtorvaSTATin [Lipitor] 40 mg PO QHS #30 tab Furosemide [Lasix TAB] 40 mg PO BID #60 tablet Metoprolol [Lopressor TAB] 75 mg PO BID #60 tablet ALBUTEROL Inhaler (OR & NICU) [Proair] 2 puff IH QID PRN 30 Days #1 vial PRN Reason: Shortness Of Breath Budesonide/Formoterol Fumarate [Symbicort 80-4.5 Mcg Inhaler] 10.2 gm IH BID 30 Days hfa.aer.ad Lisinopril [Zestril TAB] 5 mg PO QDAY #30 tablet
[2018-07-30] MEDS: LOPRESSOR PO SCH ×2 (11:36→22:39)
[2018-07-30] MEDS: ZESTRIL PO SCH (11:38)
[2018-07-30] MEDS: SODIUM CHLORIDE FLUSH SYRINGE 10 ML IV SCH ×2 (11:39→22:40)
[2018-07-30] MEDS: LOVENOX SUB-Q SCH (11:39)
[2018-07-30] MEDS: BABY ASPIRIN PO SCH (11:40)
--- NOTE | 2018-07-30 13:11 | Progress Note ---
Assessment and Plan Patient morbidly Obese.Patient alert, awake. Resting on 2 litres O2. O2 saturation 94%.No acute respiratory distress at rest at this time. - Patient Problems (1) Acute respiratory failure with hypoxia Current Visit: Yes Status: Acute Plan to address problem: O2 2 litres via nasal canula Albuterol/atrovent aerosol treatments q 6 hours. Continue S/C Lovenox. Patient refusing blood gases. (2) CHF exacerbation Current Visit: Yes Status: Acute Plan to address problem: Patient is on Lasix. Management as per cardiology. (3) Obesity Current Visit: Yes Status: Chronic Plan to address problem: Recommend to loose weight. Recommend sleep study as out patient. (4) Uncontrolled hypertension Current Visit: Yes Status: Chronic Plan to address problem: Management as per primary care. Subjective Date of service: 07/30/18 Principal diagnosis: Ac hypoxemic resp failure; Ac on ch HFrEF; COPD; HTN; DM II; Obesity Interval history: Patient morbidly Obese.Patient alert, awake. Resting on 2 litres O2. O2 saturation 94%.No acute respiratory distress at rest at this time. Objective Vital Signs - 12hr 07/30/18 07/30/18 07/30/18 04:49 08:17 11:36 Temperature 97.5 F L Pulse Rate 67 74 Respiratory 24 Rate Blood Pressure 136/65 117/60 O2 Sat by Pulse 96 95 Oximetry 07/30/18 11:38 Temperature 97.5 F L Pulse Rate 74 Respiratory Rate Blood Pressure 117/60 O2 Sat by Pulse 95 Oximetry Constitutional: no acute distress, alert, other (elderly looking, morbidly obese AAF with mild respiratory distress) Eyes: non-icteric ENT: oropharynx moist, other (Mallampati 4) Neck: supple, no JVD, other (no thyromegaly) Effort: mildly labored Ascultation: Bilateral: diminished breath sounds Percussion: Bilateral: not dull Cardiovascular: regular rate and rhythm Gastrointestinal: normoactive bowel sounds, soft, non-tender, non-distended, oth er (No HSM) Integumentary: rash (stasis dernatitis type rash to workman's bilateraly) Extremities: no cyanosis, cool, edema Neurologic: normal mental status, non-focal exam, pupils equal and round, CN II- XII normal, motor strength normal and Psychiatric: mood appropriate, affect normal CBC and BMP: 07/24/18 06:07 07/28/18 13:01 ABG, PT/INR, D-dimer: PT/INR, D-dimer PT 15.5 Sec. (12.2-14.9) H 07/22/18 19:35 INR 1.16 (0.87-1.13) H 07/22/18 19:35 Abnormal lab findings: Abnormal Labs 07/22/18 07/22/18 07/22/18 19:25 19:35 19:35 WBC RBC 5.07 H Hgb 14.4 H Hct 45.9 H RDW 17.2 H [place] % (Auto) 13.1 H Lymph # PT 15.5 H INR 1.16 H [place]lor[place] 94.4 L Carbon Dioxide 35 H BUN 5 L Creatinine 0.5 L Glucose 118 H POC Glucose Magnesium NT-Pro-B Natriuret Pep Total Protein 8.3 H Albumin 3.3 L 07/22/18 07/23/18 07/23/18 19:36 07:24 07:24 WBC 4.2 L RBC Hgb Hct 43.8 H RDW 16.8 H [place] % (Auto) 15.2 H Lymph # 1.1 L PT INR Chloride 95.1 L Carbon Dioxide 37 H BUN 6 L Creatinine 0.5 L Glucose 148 H POC Glucose Magnesium NT-Pro-B Natriuret Pep 3049 H Total Protein Albumin 07/23/18 07/24/18 07/24/18 11:46 06:07 06:07 WBC 3.5 L RBC Hgb Hct 43.3 H RDW 17.4 H [place] % (Auto) Lymph # PT INR Chloride 94.3 L Carbon Dioxide 34 H BUN Creatinine 0.4 L Glucose 149 H POC Glucose 119 H Magnesium 1.40 L NT-Pro-B Natriuret Pep Total Protein Albumin 07/24/18 07/24/18 07/24/18 08:06 11:49 21:34 WBC RBC Hgb Hct RDW [place] % (Auto) Lymph # PT INR Chloride Carbon Dioxide BUN Creatinine Glucose POC Glucose 115 H 143 H 118 H Magnesium NT-Pro-B Natriuret Pep Total Protein Albumin 07/25/18 07/25/18 07/25/18 08:47 11:26 16:00 WBC RBC Hgb Hct RDW [place] % (Auto) Lymph # PT INR Chloride Carbon Dioxide BUN Creatinine Glucose POC Glucose 110 H 110 H 118 H Magnesium NT-Pro-B Natriuret Pep Total Protein Albumin 07/25/18 07/26/18 07/27/18 20:58 21:36 07:59 WBC RBC Hgb Hct RDW [place] % (Auto) Lymph # PT INR Chloride Carbon Dioxide BUN Creatinine Glucose POC Glucose 118 H 130 H 114 H Magnesium NT-Pro-B Natriuret Pep Total Protein Albumin 07/27/18 07/27/18 07/28/18 11:38 16:33 07:57 WBC RBC Hgb Hct RDW [place] % (Auto) Lymph # PT INR Chloride Carbon Dioxide BUN Creatinine Glucose POC Glucose 134 H 114 H 111 H Magnesium NT-Pro-B Natriuret Pep Total Protein Albumin 07/28/18 07/28/18 07/28/18 11:52 13:01 16:02 WBC RBC Hgb Hct RDW [place] % (Auto) Lymph # PT INR Chloride 88.9 L Carbon Dioxide 42 H* D BUN Creatinine 0.4 L Glucose 103 H POC Glucose 132 H 119 H Magnesium NT-Pro-B Natriuret Pep Total Protein Albumin 07/28/18 07/29/18 07/29/18 21:30 07:51 12:22 WBC RBC Hgb Hct RDW [place] % (Auto) Lymph # PT INR Chloride Carbon Dioxide BUN Creatinine Glucose POC Glucose 119 H 109 H 121 H Magnesium NT-Pro-B Natriuret Pep Total Protein Albumin 07/29/18 17:05 WBC RBC Hgb Hct RDW [place] % (Auto) Lymph # PT INR Chloride Carbon Dioxide BUN Creatinine Glucose POC Glucose 149 H Magnesium NT-Pro-B Natriuret Pep Total Protein Albumin Allied health notes reviewed: nursing
[2018-07-31] MEDS: LASIX IV SCH ×2 (05:50→18:44)
[2018-07-31] MEDS: BABY ASPIRIN PO SCH (10:06)
[2018-07-31] MEDS: LOPRESSOR PO SCH ×2 (10:06→22:04)
[2018-07-31] MEDS: SODIUM CHLORIDE FLUSH SYRINGE 10 ML IV SCH ×2 (10:07→22:04)
[2018-07-31] MEDS: ZESTRIL PO SCH (10:07)
[2018-07-31] MEDS: LOVENOX SUB-Q SCH (10:07)
--- NOTE | 2018-07-31 10:11 | Progress Note ---
Assessment and Plan Acute hypoxic respiratory failure, - on 3 liters on O2; due to CHf and COPD exacerbation - Cardiology and Pulmonology following, continue to manage underlying cause Acute on chronic systolic heart failure: - managed with diuresis, anti failure medications, Cardiology consulted, input noted - stress mpi from 07/26 neg for ischemia, ef ~40% - pt will follow up in cardiology office with Dr. 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 pCXR IMPRESSION: COPD Left lower lung and left costophrenic angle are obscured by the cardiac shadow. Any underlying infiltrates and left pleural effusion cannot be excluded. A two-view chest study is recommended whenever the patient's condition permits Hospitalist Physical Gen: WDWN, NAD, Awake, Alert, Orientated x 3,morbid obese bmi 59.2 HEENT: NCAT, EOMI, PERRL, OP Clear Neck: supple, no adenopathy, no thyromegaly, no JVD CVS/Heart: RRR, normal S1S2, pulses present bilaterally Chest/Lungs: diminished bd bilateral, Symmetrical chest expansion, good air entry bilaterally GI/Abdomen: soft, NTND, good bowel sounds, no guarding or rebound /Bladder: no suprapubic tenderness, no CVA or paraspinal tenderness Extermity/Skin: no c/c/e, no obvious rash MSK: FROM x 4 Neuro: CN 2-12 grossly intact, no new focal deficits Psych: calm Subjective Date of service: 07/30/18 Principal diagnosis: Ac hypoxemic resp failure; Ac on ch HFrEF; COPD; HTN; DM II; Obesity Interval history: Patient seen and examined No acute event o/n denies any new issue discharge pending on placement Objective - Constitutional Vitals: Vital Signs - 12hr 05/07/30/18 07/31/18 22:25 22:39 05:11 Temperature 97.7 F 97.7 F Pulse Rate 84 73 80 Respiratory 24 24 Rate Blood Pressure 121/47 121/47 154/71 O2 Sat by Pulse 97 95 Oximetry - Labs CBC & Chem 7: 07/24/18 06:07 07/28/18 13:01 Labs: Abnormal lab results 07/30/18 07/30/18 07/31/18 Range/Units 17:40 21:09 07:43 POC Glucose 108 H 117 H 113 H (70-105)
--- NOTE | 2018-07-31 19:25 | Progress Note ---
Assessment and Plan Patient morbidly Obese.Patient alert, awake. Resting on 2 litres O2. O2 saturation 97%.No acute respiratory distress at rest at this time. - Patient Problems (1) Acute respiratory failure with hypoxia Current Visit: Yes Status: Acute Plan to address problem: O2 2 litres via nasal canula Albuterol/atrovent aerosol treatments q 6 hours. Continue S/C Lovenox. Patient refusing blood gases. (2) CHF exacerbation Current Visit: Yes Status: Acute Plan to address problem: Patient is on Lasix. Management as per cardiology. (3) Obesity Current Visit: Yes Status: Chronic Plan to address problem: Recommend to loose weight. Recommend sleep study as out patient. (4) Uncontrolled hypertension Current Visit: Yes Status: Chronic Plan to address problem: Management as per primary care. Subjective Date of service: 07/31/18 Principal diagnosis: Ac hypoxemic resp failure; Ac on ch HFrEF; COPD; HTN; DM II; Obesity Interval history: Patient morbidly Obese.Patient alert, awake. Resting on 2 litres O2. O2 saturation 97%.No acute respiratory distress at rest at this time. Objective Vital Signs - 12hr 07/31/18 07/31/18 07/31/18 10:00 10:06 10:07 Temperature Pulse Rate 80 80 Respiratory 24 Rate Blood Pressure 154/71 O2 Sat by Pulse 95 Oximetry 07/31/18 11:45 Temperature 97.5 F L Pulse Rate 78 Respiratory 20 Rate Blood Pressure 163/74 O2 Sat by Pulse 97 Oximetry Constitutional: no acute distress, alert, other (elderly looking, morbidly obese AAF with mild respiratory distress) Eyes: non-icteric ENT: oropharynx moist, other (Mallampati 4) Neck: supple, no JVD, other (no thyromegaly) Effort: mildly labored Ascultation: Bilateral: diminished breath sounds Percussion: Bilateral: not dull Cardiovascular: regular rate and rhythm Gastrointestinal: normoactive bowel sounds, soft, non-tender, non-distended, other (No HSM) Integumentary: rash (stasis dernatitis type rash to workman's bilateraly) Extremities: no cyanosis, cool, edema Neurologic: normal mental status, non-focal exam, pupils equal and round, CN II- XII normal, motor strength normal and Psychiatric: mood appropriate, affect normal CBC and BMP: 07/24/18 06:07 07/28/18 13:01 ABG, PT/INR, D-dimer: PT/INR, D-dimer PT 15.5 Sec. (12.2-14.9) H 07/22/18 19:35 INR 1.16 (0.87-1.13) H 07/22/18 19:35 Abnormal lab findings: Abnormal Labs 07/22/18 07/22/18 07/22/18 19:25 19:35 19:35 WBC RBC 5.07 H Hgb 14.4 H Hct 45.9 H RDW 17.2 H [place] % (Auto) 13.1 H Lymph # PT 15.5 H INR 1.16 H Chloride 94.4 L Carbon Dioxide 35 H BUN 5 L Creatinine 0.5 L Glucose 118 H POC Glucose Magnesium NT-Pro-B Natriuret Pep Total Protein 8.3 H Albumin 3.3 L 07/22/18 07/23/18 07/23/18 19:36 07:24 07:24 WBC 4.2 L RBC Hgb Hct 43.8 H RDW 16.8 H [place] % (Auto) 15.2 H Lymph # 1.1 L PT INR Chloride 95.1 L Carbon Dioxide 37 H BUN 6 L Creatinine 0.5 L Glucose 148 H POC Glucose Magnesium NT-Pro-B Natriuret Pep 3049 H Total Protein Albumin 07/23/18 07/24/18 07/24/18 11:46 06:07 06:07 WBC 3.5 L RBC Hgb Hct 43.3 H RDW 17.4 H [place] % (Auto) Lymph # PT INR Chloride 94.3 L Carbon Dioxide 34 H BUN Creatinine 0.4 L Glucose 149 H POC Glucose 119 H Magnesium 1.40 L NT-Pro-B Natriuret Pep Total Protein Albumin 07/24/18 07/24/18 07/24/18 08:06 11:49 21:34 WBC RBC Hgb Hct RDW [place] % (Auto) Lymph # PT INR Chloride Carbon Dioxide BUN Creatinine Glucose POC Glucose 115 H 143 H 118 H Magnesium NT-Pro-B Natriuret Pep Total Protein Albumin 07/25/18 07/25/18 07/25/18 08:47 11:26 16:00 WBC RBC Hgb Hct RDW [place] % (Auto) Lymph # PT INR Chloride Carbon Dioxide BUN Creatinine Glucose POC Glucose 110 H 110 H 118 H Magnesium NT-Pro-B Natriuret Pep Total Protein Albumin 07/25/18 07/26/18 07/27/18 20:58 21:36 07:59 WBC RBC Hgb Hct RDW [place] % (Auto) Lymph # PT INR Chloride Carbon Dioxide BUN Creatinine Glucose POC Glucose 118 H 130 H 114 H Magnesium NT-Pro-B Natriuret Pep Total Protein Albumin 07/27/18 07/27/18 07/28/18 11:38 16:33 07:57 WBC RBC Hgb Hct RDW [place] % (Auto) Lymph # PT INR Chloride Carbon Dioxide BUN Creatinine Glucose POC Glucose 134 H 114 H 111 H Magnesium NT-Pro-B Natriuret Pep Total Protein Albumin 07/28/18 07/28/18 07/28/18 11:52 13:01 16:02 WBC RBC Hgb Hct RDW [place] % (Auto) Lymph # PT INR Chloride 88.9 L Carbon Dioxide 42 H* D BUN Creatinine 0.4 L Glucose 103 H POC Glucose 132 H 119 H Magnesium NT-Pro-B Natriuret Pep Total Protein Albumin 07/28/18 07/29/18 07/29/18 21:30 07:51 12:22 WBC RBC Hgb Hct RDW [place] % (Auto) Lymph # PT INR Chloride Carbon Dioxide BUN Creatinine Glucose POC Glucose 119 H 109 H 121 H Magnesium NT-Pro-B Natriuret Pep Total Protein Albumin 07/29/18 07/30/18 07/30/18 17:05 17:40 21:09 WBC RBC Hgb Hct RDW [place] % (Auto) Lymph # PT INR Chloride Carbon Dioxide BUN Creatinine Glucose POC Glucose 149 H 108 H 117 H Magnesium NT-Pro-B Natriuret Pep Total Protein Albumin 07/31/18 07/31/18 07/31/18 07:43 11:27 16:50 WBC RBC Hgb Hct RDW [place] % (Auto) Lymph # PT INR Chloride Carbon Dioxide BUN Creatinine Glucose POC Glucose 113 H 122 H 132 H Magnesium NT-Pro-B Natriuret Pep Total Protein Albumin Allied health notes reviewed: nursing
[2018-07-31] MEDS: TYLENOL PO PRN (22:03)
[2018-08-01] MEDS: LASIX IV SCH ×2 (05:46→17:41)
[2018-08-01] MEDS: LOVENOX SUB-Q SCH (10:04)
[2018-08-01] MEDS: LOPRESSOR PO SCH ×2 (10:04→21:57)
[2018-08-01] MEDS: SODIUM CHLORIDE FLUSH SYRINGE 10 ML IV SCH ×2 (10:05→21:59)
[2018-08-01] MEDS: BABY ASPIRIN PO SCH (10:05)
[2018-08-01] MEDS: ZESTRIL PO SCH (10:05)
[2018-08-01] MEDS: TYLENOL PO PRN ×2 (10:13→22:24)
[2018-08-01 10:30] LABS: Hematocrit 40.4 % (30.3-42.9); Hemoglobin 12.9 gm/dl (10.1-14.3); Mean Corpuscular HGB Conc 32 % (30-34); Mean Corpuscular Volume 90 fl (79-97); Platelet Count 239 K/mm3 (140-440); Red Blood Count 4.48 M/mm3 (3.65-5.03); Red Cell Distribution Width 16.7 % (13.2-15.2)
[2018-08-01 10:48] LABS: BUN/Creatinine Ratio 30; Blood Urea Nitrogen 9 mg/dL (7-17); Calcium 8.7 mg/dL (8.4-10.2); Hemolysis Index 24
--- NOTE | 2018-08-01 11:42 | Progress Note ---
Assessment and Plan Acute hypoxic respiratory failure, - on 3 liters on O2; due to CHf and COPD exacerbation - Cardiology and Pulmonology following, continue to manage underlying cause Acute on chronic systolic heart failure: - managed with diuresis, anti failure medications, Cardiology consulted, input noted - stress mpi from 07/26 neg for ischemia, ef ~40% - pt will follow up in cardiology office with Dr. Benitez within 3-5 days of hospital discharge ([phone]) COPD; consulted Pulmonology, treated with frequent nebs and as needed, now stable Hypertension, uncontrolled: low salt diet, Diabetes Mellitus: ADA diet, ssi Morbid Obesity, bmi 59.2: counseled for outpatient NIKKI screen Noncompliant: continued personal counselor on compliance NSVT asymptomatic: Cardiology evaluated, medical Mx, increased bblocker Physical debility- PT recommended JOCELYN - pending placement Brief history: Patient is a 63 yo woman with a history of CHF, EF of 35%, hypertension, diabetes mellitus and morbid obesity who presented to ER with c/o SOB. pCXR IMPRESSION: COPD Left lower lung and left costophrenic angle are obscured by the cardiac shadow. Any underlying infiltrates and left pleural effusion cannot be excluded. A two-view chest study is recommended whenever the patient's condition permits Hospitalist Physical Gen: WDWN, NAD, Awake, Alert, Orientated x 3,morbid obese bmi 59.2 HEENT: NCAT, EOMI, PERRL, OP Clear Neck: supple, no adenopathy, no thyromegaly, no JVD CVS/Heart: RRR, normal S1S2, pulses present bilaterally Chest/Lungs: diminished bd bilateral, Symmetrical chest expansion, good air entry bilaterally GI/Abdomen: soft, NTND, good bowel sounds, no guarding or rebound /Bladder: no suprapubic tenderness, no CVA or paraspinal tenderness Extermity/Skin: no c/c/e, no obvious rash MSK: FROM x 4 Neuro: CN 2-12 grossly intact, no new focal deficits Psych: calm Subjective Date of service: 07/31/18 Principal diagnosis: Ac hypoxemic resp failure; Ac on ch HFrEF; COPD; HTN; DM II; Obesity Interval history: Patient seen and examined No acute event o/n denies any new issue discharge pending on placement Objective - Constitutional Vitals: Vital Signs - 12hr 08/01/18 05:02 Temperature 97.4 F L Pulse Rate 68 Respiratory 24 Rate Blood Pressure 120/51 O2 Sat by Pulse 95 Oximetry - Labs CBC & Chem 7: 08/01/18 10:04 08/01/18 10:04 Labs: Abnormal lab results 07/31/18 07/31/18 08/01/18 Range/Units 16:50 21:10 07:36 WBC (4.5-11.0) K/mm3 RDW (13.2-15.2) % Chloride (98-107) mmol/L Carbon Dioxide (22-30) mmol/L Creatinine (0.7-1.2) mg/dL Glucose (65-100) mg/dL POC Glucose 132 H 115 H 109 H (70-105) 08/01/18 08/01/18 08/01/18 Range/Units 10:04 10:04 11:32 WBC 3.3 L (4.5-11.0) K/mm3 RDW 16.7 H (13.2-15.2) % Chloride 91.0 L (98-107) mmol/L Carbon Dioxide 39 H (22-30) mmol/L Creatinine 0.3 L (0.7-1.2) mg/dL Glucose 157 H (65-100) mg/dL POC Glucose 127 H (70-105)
--- NOTE | 2018-08-01 14:47 | Progress Note ---
Assessment and Plan Acute hypoxic respiratory failure on 3L NC Acute on chronic systolic heart failure: COPD Hypertension Diabetes Mellitus: Extreme Obesity, bmi 59.2 Metabolic alkalosis - Continue supplemental oxygen, wean for O2 sats > 90% - continue bronchodilators per protocol - continue diuresis as tolerated by renal function and hemodynamics - continue heart failure measures per cardiology team - PT/OT/increase ambulation as tolerated - Out patient sleep study again recommended - Nocturnal CPAP as tolerated (poorly compliant) - Cardioprotective measures - Glycemic control with SSI for target BG < 180 mg/dl - Weight loss and lifestyle modifications - Need for medical compliance discussed - VTE prophylaxis ... re-evaluate in am & prn Subjective Date of service: 08/01/18 Principal diagnosis: Ac hypoxemic resp failure; Ac on ch HFrEF; COPD; HTN; DM II; Obesity Interval history: Patient is seen today for: Acute hypoxic respiratory failure on 3L NC; Acute on chronic systolic heart failure; COPD; Hypertension; Diabetes Mellitus Seen and examined at bedside; 24hour events reviewed; nursing and respiratory care staff consulted; no adverse overnight events reported to me; resting in bed; remains on suplemental oxygen; denies acute chest pains or palpitations; No N/V/F/C Objective Vital Signs - 12hr 08/01/18 08/01/18 05:02 11:55 Temperature 97.4 F L 98.0 F Pulse Rate 68 69 Respiratory 24 18 Rate Blood Pressure 120/51 156/72 O2 Sat by Pulse 95 91 Oximetry Constitutional: no acute distress, alert, other (elderly looking, morbidly obese AAF with mild respiratory distress) Eyes: non-icteric ENT: oropharynx moist, other (Mallampati 4) Neck: supple, no JVD, other (no thyromegaly) Effort: mildly labored Ascultation: Bilateral: clear, diminished breath sounds Percussion: Bilateral: not dull Cardiovascular: regular rate and rhythm Gastrointestinal: normoactive bowel sounds, soft, non-tender, non-distended, other (No HSM) Integumentary: rash (stasis dernatitis type rash to workman's bilateraly) Extremities: no cyanosis, cool, edema (trace) Neurologic: normal mental status, non-focal exam, pupils equal and round, CN II- XII normal, motor strength normal and Psychiatric: mood appropriate, affect normal CBC and BMP: 08/01/18 10:04 08/01/18 10:04 ABG, PT/INR, D-dimer: PT/INR, D-dimer PT 15.5 Sec. (12.2-14.9) H 07/22/18 19:35 INR 1.16 (0.87-1.13) H 07/22/18 19:35 Abnormal lab findings: Abnormal Labs 07/22/18 07/22/18 07/22/18 19:25 19:35 19:35 WBC RBC 5.07 H Hgb 14.4 H Hct 45.9 H RDW 17.2 H [place] % (Auto) 13.1 H Lymph # PT 15.5 H INR 1.16 H Chloride 94.4 L Carbon Dioxide 35 H BUN 5 L Creatinine 0.5 L Glucose 118 H POC Glucose Magnesium NT-Pro-B Natriuret Pep Total Protein 8.3 H Albumin 3.3 L 07/22/18 07/23/18 07/23/18 19:36 07:24 07:24 WBC 4.2 L RBC Hgb Hct 43.8 H RDW 16.8 H [place] % (Auto) 15.2 H Lymph # 1.1 L PT INR Chloride 95.1 L Carbon Dioxide 37 H BUN 6 L Creatinine 0.5 L Glucose 148 H POC Glucose Magnesium NT-Pro-B Natriuret Pep 3049 H Total Protein Albumin 07/23/18 07/24/18 07/24/18 11:46 06:07 06:07 WBC 3.5 L RBC Hgb Hct 43.3 H RDW 17.4 H [place] % (Auto) Lymph # PT INR Chloride 94.3 L Carbon Dioxide 34 H BUN Creatinine 0.4 L Glucose 149 H POC Glucose 119 H Magnesium 1.40 L NT-Pro-B Natriuret Pep Total Protein Albumin 07/24/18 07/24/18 07/24/18 08:06 11:49 21:34 WBC RBC Hgb Hct RDW [place] % (Auto) Lymph # PT INR Chloride Carbon Dioxide BUN Creatinine Glucose POC Glucose 115 H 143 H 118 H Magnesium NT-Pro-B Natriuret Pep Total Protein Albumin 07/25/18 07/25/18 07/25/18 08:47 11:26 16:00 WBC RBC Hgb Hct RDW [place] % (Auto) Lymph # PT INR Chloride Carbon Dioxide BUN Creatinine Glucose POC Glucose 110 H 110 H 118 H Magnesium NT-Pro-B Natriuret Pep Total Protein Albumin 07/25/18 07/26/18 07/27/18 20:58 21:36 07:59 WBC RBC Hgb Hct RDW [place] % (Auto) Lymph # PT INR Chloride Carbon Dioxide BUN Creatinine Glucose POC Glucose 118 H 130 H 114 H Magnesium NT-Pro-B Natriuret Pep Total Protein Albumin 07/27/18 07/27/18 07/28/18 11:38 16:33 07:57 WBC RBC Hgb Hct RDW [place] % (Auto) Lymph # PT INR Chloride Carbon Dioxide BUN Creatinine Glucose POC Glucose 134 H 114 H 111 H Magnesium NT-Pro-B Natriuret Pep Total Protein Albumin 07/28/18 07/28/18 07/28/18 11:52 13:01 16:02 WBC RBC Hgb Hct RDW [place] % (Auto) Lymph # PT INR Chloride 88.9 L Carbon Dioxide 42 H* D BUN Creatinine 0.4 L Glucose 103 H POC Glucose 132 H 119 H Magnesium NT-Pro-B Natriuret Pep Total Protein Albumin 07/28/18 07/29/18 07/29/18 21:30 07:51 12:22 WBC RBC Hgb Hct RDW [place] % (Auto) Lymph # PT INR Chloride Carbon Dioxide BUN Creatinine Glucose POC Glucose 119 H 109 H 121 H Magnesium NT-Pro-B Natriuret Pep Total Protein Albumin 07/29/18 07/30/18 07/30/18 17:05 17:40 21:09 WBC RBC Hgb Hct RDW [place] % (Auto) Lymph # PT INR Chloride Carbon Dioxide BUN Creatinine Glucose POC Glucose 149 H 108 H 117 H Magnesium NT-Pro-B Natriuret Pep Total Protein Albumin 07/31/18 07/31/18 07/31/18 07:43 11:27 16:50 WBC RBC Hgb Hct RDW [place] % (Auto) Lymph # PT INR Chloride Carbon Dioxide BUN Creatinine Glucose POC Glucose 113 H 122 H 132 H Magnesium NT-Pro-B Natriuret Pep Total Protein Albumin 07/31/18 08/01/18 08/01/18 21:10 07:36 10:04 WBC 3.3 L RBC Hgb Hct RDW 16.7 H [place] % (Auto) Lymph # PT INR Chloride Carbon Dioxide BUN Creatinine Glucose POC Glucose 115 H 109 H Magnesium NT-Pro-B Natriuret Pep Total Protein Albumin 08/01/18 08/01/18 10:04 11:32 WBC RBC Hgb Hct RDW [place] % (Auto) Lymph # PT INR Chloride 91.0 L Carbon Dioxide 39 H BUN Creatinine 0.3 L Glucose 157 H POC Glucose 127 H Magnesium NT-Pro-B Natriuret Pep Total Protein Albumin Allied health notes reviewed: nursing
[2018-08-02] MEDS: LASIX IV SCH ×2 (05:51→17:44)
[2018-08-02] MEDS: SODIUM CHLORIDE FLUSH SYRINGE 10 ML IV PRN (05:52)
[2018-08-02] MEDS: LOPRESSOR PO SCH ×2 (09:01→21:56)
[2018-08-02] MEDS: LOVENOX SUB-Q SCH (09:01)
[2018-08-02] MEDS: SODIUM CHLORIDE FLUSH SYRINGE 10 ML IV SCH ×2 (09:02→21:59)
[2018-08-02] MEDS: BABY ASPIRIN PO SCH (09:02)
[2018-08-02] MEDS: ZESTRIL PO SCH (09:02)
--- NOTE | 2018-08-02 10:38 | Progress Note ---
Assessment and Plan Acute hypoxic respiratory failure, - on 3 liters on O2; due to CHf and COPD exacerbation - Cardiology and Pulmonology following, continue to manage underlying cause Acute on chronic systolic heart failure: - managed with diuresis, anti failure medications, Cardiology consulted, input noted - stress mpi from 07/26 neg for ischemia, ef ~40% - pt will follow up in cardiology office with Dr. Benitez within 3-5 days of hospital discharge ([phone]) COPD; consulted Pulmonology, treated with frequent nebs and as needed, now stable Hypertension, uncontrolled: low salt diet, Diabetes Mellitus: ADA diet, ssi Morbid Obesity, bmi 59.2: counseled for outpatient NKIKI screen Noncompliant: continued career development counselor on compliance NSVT asymptomatic: Cardiology evaluated, medical Mx, increased bblocker Physical debility- PT recommended JOCELYN - pending placement Brief history: Patient is a 63 yo woman with a history of CHF, EF of 35%, hypertension, diabetes mellitus and morbid obesity who presented to ER with c/o SOB. pCXR IMPRESSION: COPD Left lower lung and left costophrenic angle are obscured by the cardiac shadow. Any underlying infiltrates and left pleural effusion cannot be excluded. A two-view chest study is recommended whenever the patient's condition permits Hospitalist Physical Gen: WDWN, NAD, Awake, Alert, Orientated x 3,morbid obese bmi 59.2 HEENT: NCAT, EOMI, PERRL, OP Clear Neck: supple, no adenopathy, no thyromegaly, no JVD CVS/Heart: RRR, normal S1S2, pulses present bilaterally Chest/Lungs: diminished bd bilateral, Symmetrical chest expansion, good air entry bilaterally GI/Abdomen: soft, NTND, good bowel sounds, no guarding or rebound /Bladder: no suprapubic tenderness, no CVA or paraspinal tenderness Extermity/Skin: no c/c/e, no obvious rash MSK: FROM x 4 Neuro: CN 2-12 grossly intact, no new focal deficits Psych: calm Subjective Date of service: 08/01/18 Principal diagnosis: Ac hypoxemic resp failure; Ac on ch HFrEF; COPD; HTN; DM II; Obesity Interval history: Patient seen and examined No acute event o/n denies any new issue discharge pending on placement Objective - Constitutional Vitals: Vital Signs - 12hr 08/01/18 08/02/18 23:13 04:48 Temperature 97.8 F 98.4 F Pulse Rate 76 65 Respiratory 20 20 Rate Blood Pressure 132/73 126/73 O2 Sat by Pulse 84 97 Oximetry - Labs CBC & Chem 7: 08/01/18 10:04 08/01/18 10:04 Labs: Abnormal lab results 08/01/18 08/01/18 08/01/18 Range/Units 10:04 11:32 16:43 Chloride 91.0 L (98-107) mmol/L Carbon Dioxide 39 H (22-30) mmol/L Creatinine 0.3 L (0.7-1.2) mg/dL Glucose 157 H (65-100) mg/dL POC Glucose 127 H 120 H (70-105)
--- NOTE | 2018-08-02 14:09 | Progress Note ---
Assessment and Plan Acute hypoxic respiratory failure on 3L NC Acute on chronic systolic heart failure: COPD Hypertension Diabetes Mellitus: Extreme Obesity, bmi 59.2 Metabolic alkalosis - Continue supplemental oxygen, wean for O2 sats > 90% - continue bronchodilators per protocol - continue diuresis as tolerated by renal function and hemodynamics - continue heart failure measures per cardiology team - PT/OT/increase ambulation as tolerated - Out patient sleep study again recommended - continue nocturnal CPAP as tolerated (poorly compliant) - Cardioprotective measures - Glycemic control with SSI for target BG < 180 mg/dl - Weight loss and lifestyle modifications - Need for medical compliance discussed - VTE prophylaxis ... re-evaluate in am & prn Subjective Date of service: 08/02/18 Principal diagnosis: Ac hypoxemic resp failure; Ac on ch HFrEF; COPD; HTN; DM II; Obesity Interval history: Patient is seen today for: Acute hypoxic respiratory failure on 3L NC; Acute on chronic systolic heart failure; COPD; Hypertension; Diabetes Mellitus Seen and examined at bedside; 24hour events reviewed; nursing and respiratory care staff consulted; no adverse overnight events reported to me; resting in bed; No N/V/F/C; no acute chest pains or SOB Objective Vital Signs - 12hr 08/02/18 08/02/18 08/02/18 04:48 10:46 11:38 Temperature 98.4 F 97.3 F L Pulse Rate 65 77 Respiratory 20 19 Rate Blood Pressure 126/73 115/43 O2 Sat by Pulse 97 95 91 Oximetry Constitutional: no acute distress, alert, other (elderly looking, morbidly obese AAF with mild respiratory distress) Eyes: non-icteric ENT: oropharynx moist, other (Mallampati 4) Neck: supple, no JVD, other (no thyromegaly) Effort: mildly labored Ascultation: Bilateral: clear, diminished breath sounds Percussion: Bilateral: not dull Cardiovascular: regular rate and rhythm Gastrointestinal: normoactive bowel sounds, soft, non-tender, non-distended, other (No HSM) Integumentary: rash (stasis dernatitis type rash to workman's bilateraly) Extremities: no cyanosis, cool, edema (trace) Neurologic: normal mental status, non-focal exam, pupils equal and round, CN II- XII normal, motor strength normal and Psychiatric: mood appropriate, affect normal CBC and BMP: 08/01/18 10:04 05/16/19 10:04 ABG, PT/INR, D-dimer: PT/INR, D-dimer PT 15.5 Sec. (12.2-14.9) H 07/22/18 19:35 INR 1.16 (0.87-1.13) H 07/22/18 19:35 Abnormal lab findings: Abnormal Labs 07/22/18 07/22/18 07/22/18 19:25 19:35 19:35 WBC RBC 5.07 H Hgb 14.4 H Hct 45.9 H RDW 17.2 H [place] % (Auto) 13.1 H Lymph # PT 15.5 H INR 1.16 H Chloride 94.4 L Carbon Dioxide 35 H BUN 5 L Creatinine 0.5 L Glucose 118 H POC Glucose Magnesium NT-Pro-B Natriuret Pep Total Protein 8.3 H Albumin 3.3 L 07/22/18 07/23/18 07/23/18 19:36 07:24 07:24 WBC 4.2 L RBC Hgb Hct 43.8 H RDW 16.8 H [place] % (Auto) 15.2 H Lymph # 1.1 L PT INR Chloride 95.1 L Carbon Dioxide 37 H BUN 6 L Creatinine 0.5 L Glucose 148 H POC Glucose Magnesium NT-Pro-B Natriuret Pep 3049 H Total Protein Albumin 07/23/18 07/24/18 07/24/18 11:46 06:07 06:07 WBC 3.5 L RBC Hgb Hct 43.3 H RDW 17.4 H [place] % (Auto) Lymph # PT INR Chloride 94.3 L Carbon Dioxide 34 H BUN Creatinine 0.4 L Glucose 149 H POC Glucose 119 H Magnesium 1.40 L NT-Pro-B Natriuret Pep Total Protein Albumin 07/24/18 07/24/18 07/24/18 08:06 11:49 21:34 WBC RBC Hgb Hct RDW [place] % (Auto) Lymph # PT INR Chloride Carbon Dioxide BUN Creatinine Glucose POC Glucose 115 H 143 H 118 H Magnesium NT-Pro-B Natriuret Pep Total Protein Albumin 07/25/18 07/25/18 07/25/18 08:47 11:26 16:00 WBC RBC Hgb Hct RDW [place] % (Auto) Lymph # PT INR Chloride Carbon Dioxide BUN Creatinine Glucose POC Glucose 110 H 110 H 118 H Magnesium NT-Pro-B Natriuret Pep Total Protein Albumin 07/25/18 07/26/18 07/27/18 20:58 21:36 07:59 WBC RBC Hgb Hct RDW [place] % (Auto) Lymph # PT INR Chloride Carbon Dioxide BUN Creatinine Glucose POC Glucose 118 H 130 H 114 H Magnesium NT-Pro-B Natriuret Pep Total Protein Albumin 07/27/18 07/27/18 07/28/18 11:38 16:33 07:57 WBC RBC Hgb Hct RDW [place] % (Auto) Lymph # PT INR Chloride Carbon Dioxide BUN Creatinine Glucose POC Glucose 134 H 114 H 111 H Magnesium NT-Pro-B Natriuret Pep Total Protein Albumin 07/28/18 07/28/18 07/28/18 11:52 13:01 16:02 WBC RBC Hgb Hct RDW [place] % (Auto) Lymph # PT INR Chloride 88.9 L Carbon Dioxide 42 H* D BUN Creatinine 0.4 L Glucose 103 H POC Glucose 132 H 119 H Magnesium NT-Pro-B Natriuret Pep Total Protein Albumin 07/28/18 07/29/18 07/29/18 21:30 07:51 12:22 WBC RBC Hgb Hct RDW [place] % (Auto) Lymph # PT INR Chloride Carbon Dioxide BUN Creatinine Glucose POC Glucose 119 H 109 H 121 H Magnesium NT-Pro-B Natriuret Pep Total Protein Albumin 07/29/18 07/30/18 07/30/18 17:05 17:40 21:09 WBC RBC Hgb Hct RDW [place] % (Auto) Lymph # PT INR Chloride Carbon Dioxide BUN Creatinine Glucose POC Glucose 149 H 108 H 117 H Magnesium NT-Pro-B Natriuret Pep Total Protein Albumin 07/31/18 07/31/18 07/31/18 07:43 11:27 16:50 WBC RBC Hgb Hct RDW [place] % (Auto) Lymph # PT INR Chloride Carbon Dioxide BUN Creatinine Glucose POC Glucose 113 H 122 H 132 H Magnesium NT-Pro-B Natriuret Pep Total Protein Albumin 07/31/18 08/01/18 08/01/18 21:10 07:36 10:04 WBC 3.3 L RBC Hgb Hct RDW 16.7 H [place] % (Auto) Lymph # PT INR Chloride Carbon Dioxide BUN Creatinine Glucose POC Glucose 115 H 109 H Magnesium NT-Pro-B Natriuret Pep Total Protein Albumin 08/01/18 08/01/18 08/01/18 10:04 11:32 16:43 WBC RBC Hgb Hct RDW [place] % (Auto) Lymph # PT INR Chloride 91.0 L Carbon Dioxide 39 H BUN Creatinine 0.3 L Glucose 157 H POC Glucose 127 H 120 H Magnesium NT-Pro-B Natriuret Pep Total Protein Albumin 08/02/18 11:07 WBC RBC Hgb Hct RDW [place] % (Auto) Lymph # PT INR Chloride Carbon Dioxide BUN Creatinine Glucose POC Glucose 115 H Magnesium NT-Pro-B Natriuret Pep Total Protein Albumin Allied health notes reviewed: nursing
[2018-08-02] MEDS: TYLENOL PO PRN ×2 (16:34→21:55)
[2018-08-03] MEDS: LASIX IV SCH ×2 (06:31→18:49)
[2018-08-03] MEDS: SODIUM CHLORIDE FLUSH SYRINGE 10 ML IV PRN (06:33)
--- NOTE | 2018-08-03 10:14 | Progress Note ---
Assessment and Plan Acute hypoxic respiratory failure, - on 3 liters on O2; due to CHf and COPD exacerbation - Cardiology and Pulmonology following, continue to manage underlying cause Acute on chronic systolic heart failure: - managed with diuresis, anti failure medications, Cardiology consulted, input noted - stress mpi from 07/26 neg for ischemia, ef ~40% - pt will follow up in cardiology office with Dr. Benitez within 3-5 days of hospital discharge ([phone]) COPD; consulted Pulmonology, treated with frequent nebs and as needed, now stable Hypertension, uncontrolled: low salt diet, Diabetes Mellitus: ADA diet, ssi Morbid Obesity, bmi 59.2: counseled for outpatient NIKKI screen Noncompliant: continued educational guidance counselor on compliance NSVT asymptomatic: Cardiology evaluated, medical Mx, increased bblocker Physical debility- PT recommended JOCELYN - pending placement Brief history: Patient is a 63 yo woman with a history of CHF, EF of 35%, hypertension, diabetes mellitus and morbid obesity who presented to ER with c/o SOB. pCXR IMPRESSION: COPD Left lower lung and left costophrenic angle are obscured by the cardiac shadow. Any underlying infiltrates and left pleural effusion cannot be excluded. A two-view chest study is recommended whenever the patient's condition permits Hospitalist Physical Gen: WDWN, NAD, Awake, Alert, Orientated x 3,morbid obese bmi 59.2 HEENT: NCAT, EOMI, PERRL, OP Clear Neck: supple, no adenopathy, no thyromegaly, no JVD CVS/Heart: RRR, normal S1S2, pulses present bilaterally Chest/Lungs: diminished bd bilateral, Symmetrical chest expansion, good air entry bilaterally GI/Abdomen: soft, NTND, good bowel sounds, no guarding or rebound /Bladder: no suprapubic tenderness, no CVA or paraspinal tenderness Extermity/Skin: no c/c/e, no obvious rash MSK: FROM x 4 Neuro: CN 2-12 grossly intact, no new focal deficits Psych: calm Subjective Date of service: 08/03/18 Principal diagnosis: Ac hypoxemic resp failure; Ac on ch HFrEF; COPD; HTN; DM II; Obesity Interval history: Patient seen and examined No acute event o/n denies any new issue discharge pending on placement Objective - Constitutional Vitals: Vital Signs - 12hr 05/08/03/18 08/03/18 22:50 04:58 05:58 Temperature 99.0 F 97.8 F Pulse Rate 83 67 Respiratory 28 H 24 Rate Blood Pressure 147/82 Blood Pressure 150/81 [Right] O2 Sat by Pulse 93 95 Oximetry - Labs CBC & Chem 7: 08/01/18 10:04 08/01/18 10:04 Labs: Abnormal lab results 08/02/18 08/02/18 08/02/18 Range/Units 11:07 16:25 21:06 POC Glucose 115 H 131 H 126 H (70-105) 08/03/18 Range/Units 07:24 POC Glucose 107 H (70-105)
[2018-08-03] MEDS: ZESTRIL PO SCH (11:00)
[2018-08-03] MEDS: LOPRESSOR PO SCH ×2 (11:00→22:03)
[2018-08-03] MEDS: LOVENOX SUB-Q SCH (11:01)
[2018-08-03] MEDS: BABY ASPIRIN PO SCH (11:01)
[2018-08-03] MEDS: SODIUM CHLORIDE FLUSH SYRINGE 10 ML IV SCH ×2 (11:01→22:00)
--- NOTE | 2018-08-03 19:29 | Progress Note ---
Assessment and Plan Patient morbidly Obese.Patient alert, awake. Resting on 2 litres O2. O2 saturation 95%.No acute respiratory distress at rest at this time. - Patient Problems (1) Acute respiratory failure with hypoxia Current Visit: Yes Status: Acute Plan to address problem: O2 2 litres via nasal canula Albuterol/atrovent aerosol treatments q 6 hours. Continue S/C Lovenox. Patient refusing blood gases. (2) CHF exacerbation Current Visit: Yes Status: Acute Plan to address problem: Patient is on Lasix. Management as per cardiology. (3) Obesity Current Visit: Yes Status: Chronic Plan to address problem: Recommend to loose weight. Recommend sleep study as out patient. (4) Uncontrolled hypertension Current Visit: Yes Status: Chronic Plan to address problem: Management as per primary care. Subjective Date of service: 08/03/18 Principal diagnosis: Ac hypoxemic resp failure; Ac on ch HFrEF; COPD; HTN; DM II; Obesity Interval history: Patient morbidly Obese.Patient alert, awake. Resting on 2 litres O2. O2 saturation 95%.No acute respiratory distress at rest at this time. Objective Vital Signs - 12hr 08/03/18 08/03/18 08/03/18 10:00 11:00 11:28 Temperature 97.5 F L Pulse Rate 75 71 Pulse Rate [ 75 From Monitor] Respiratory 24 Rate Blood Pressure 153/74 133/72 O2 Sat by Pulse 96 100 Oximetry 08/03/18 18:07 Temperature 97.3 F L Pulse Rate 73 Pulse Rate [ From Monitor] Respiratory 24 Rate Blood Pressure 152/70 O2 Sat by Pulse 95 Oximetry Constitutional: no acute distress, alert, other (elderly looking, morbidly obese AAF with mild respiratory distress) Eyes: non-icteric ENT: oropharynx moist, other (Mallampati 4) Neck: supple, no JVD, other (no thyromegaly) Effort: mildly labored Ascultation: Bilateral: diminished breath sounds Percussion: Bilateral: not dull Cardiovascular: regular rate and rhythm Gastrointestinal: normoactive bowel sounds, soft, non-tender, non-distended, other (No HSM) Integumentary: rash (stasis dernatitis type rash to workman's bilateraly) Extremities: no cyanosis, cool, edema (trace) Neurologic: normal mental status, non-focal exam, pupils equal and round, CN II- XII normal, motor strength normal and Psychiatric: mood appropriate, affect normal CBC and BMP: 08/01/18 10:04 08/01/18 10:04 ABG, PT/INR, D-dimer: PT/INR, D-dimer PT 15.5 Sec. (12.2-14.9) H 07/22/18 19:35 INR 1.16 (0.87-1.13) H 07/22/18 19:35 Abnormal lab findings: Abnormal Labs 07/22/18 07/22/18 07/22/18 19:25 19:35 19:35 WBC RBC 5.07 H Hgb 14.4 H Hct 45.9 H RDW 17.2 H [place] % (Auto) 13.1 H Lymph # PT 15.5 H INR 1.16 H Chloride 94.4 L Carbon Dioxide 35 H BUN 5 L Creatinine 0.5 L Glucose 118 H POC Glucose Magnesium NT-Pro-B Natriuret Pep Total Protein 8.3 H Albumin 3.3 L 07/22/18 07/23/18 07/23/18 19:36 07:24 07:24 WBC 4.2 L RBC Hgb Hct 43.8 H RDW 16.8 H [place] % (Auto) 15.2 H Lymph # 1.1 L PT INR Chloride 95.1 L Carbon Dioxide 37 H BUN 6 L Creatinine 0.5 L Glucose 148 H POC Glucose Magnesium NT-Pro-B Natriuret Pep 3049 H Total Protein Albumin 07/23/18 07/24/18 07/24/18 11:46 06:07 06:07 WBC 3.5 L RBC Hgb Hct 43.3 H RDW 17.4 H [place] % (Auto) Lymph # PT INR Chloride 94.3 L Carbon Dioxide 34 H BUN Creatinine 0.4 L Glucose 149 H POC Glucose 119 H Magnesium 1.40 L NT-Pro-B Natriuret Pep Total Protein Albumin 07/24/18 07/24/18 07/24/18 08:06 11:49 21:34 WBC RBC Hgb Hct RDW [place] % (Auto) Lymph # PT INR Chloride Carbon Dioxide BUN Creatinine Glucose POC Glucose 115 H 143 H 118 H Magnesium NT-Pro-B Natriuret Pep Total Protein Albumin 07/25/18 07/25/18 07/25/18 08:47 11:26 16:00 WBC RBC Hgb Hct RDW [place] % (Auto) Lymph # PT INR Chloride Carbon Dioxide BUN Creatinine Glucose POC Glucose 110 H 110 H 118 H Magnesium NT-Pro-B Natriuret Pep Total Protein Albumin 07/25/18 07/26/18 07/27/18 20:58 21:36 07:59 WBC RBC Hgb Hct RDW [place] % (Auto) Lymph # PT INR Chloride Carbon Dioxide BUN Creatinine Glucose POC Glucose 118 H 130 H 114 H Magnesium NT-Pro-B Natriuret Pep Total Protein Albumin 07/27/18 07/27/18 07/28/18 11:38 16:33 07:57 WBC RBC Hgb Hct RDW [place] % (Auto) Lymph # PT INR Chloride Carbon Dioxide BUN Creatinine Glucose POC Glucose 134 H 114 H 111 H Magnesium NT-Pro-B Natriuret Pep Total Protein Albumin 07/28/18 07/28/18 07/28/18 11:52 13:01 16:02 WBC RBC Hgb Hct RDW [place] % (Auto) Lymph # PT INR Chloride 88.9 L Carbon Dioxide 42 H* D BUN Creatinine 0.4 L Glucose 103 H POC Glucose 132 H 119 H Magnesium NT-Pro-B Natriuret Pep Total Protein Albumin 07/28/18 07/29/18 07/29/18 21:30 07:51 12:22 WBC RBC Hgb Hct RDW [place] % (Auto) Lymph # PT INR Chloride Carbon Dioxide BUN Creatinine Glucose POC Glucose 119 H 109 H 121 H Magnesium NT-Pro-B Natriuret Pep Total Protein Albumin 07/29/18 07/30/18 07/30/18 17:05 17:40 21:09 WBC RBC Hgb Hct RDW [place] % (Auto) Lymph # PT INR Chloride Carbon Dioxide BUN Creatinine Glucose POC Glucose 149 H 108 H 117 H Magnesium NT-Pro-B Natriuret Pep Total Protein Albumin 07/31/18 07/31/18 07/31/18 07:43 11:27 16:50 WBC RBC Hgb Hct RDW [place] % (Auto) Lymph # PT INR Chloride Carbon Dioxide BUN Creatinine Glucose POC Glucose 113 H 122 H 132 H Magnesium NT-Pro-B Natriuret Pep Total Protein Albumin 07/31/18 08/01/18 08/01/18 21:10 07:36 10:04 WBC 3.3 L RBC Hgb Hct RDW 16.7 H [place] % (Auto) Lymph # PT INR Chloride Carbon Dioxide BUN Creatinine Glucose POC Glucose 115 H 109 H Magnesium NT-Pro-B Natriuret Pep Total Protein Albumin 08/01/18 08/01/18 08/01/18 10:04 11:32 16:43 WBC RBC Hgb Hct RDW [place] % (Auto) Lymph # PT INR Chloride 91.0 L Carbon Dioxide 39 H BUN Creatinine 0.3 L Glucose 157 H POC Glucose 127 H 120 H Magnesium NT-Pro-B Natriuret Pep Total Protein Albumin 08/02/18 08/02/18 08/02/18 11:07 16:25 21:06 WBC RBC Hgb Hct RDW [place] % (Auto) Lymph # PT INR Chloride Carbon Dioxide BUN Creatinine Glucose POC Glucose 115 H 131 H 126 H Magnesium NT-Pro-B Natriuret Pep Total Protein Albumin 08/03/18 08/03/18 08/03/18 07:24 11:35 16:43 WBC RBC Hgb Hct RDW [place] % (Auto) Lymph # PT INR Chloride Carbon Dioxide BUN Creatinine Glucose POC Glucose 107 H 108 H 141 H Magnesium NT-Pro-B Natriuret Pep Total Protein Albumin Allied health notes reviewed: nursing
[2018-08-03] MEDS ORDERED: IBUPROFEN PO ONE (22:00)
[2018-08-03] MEDS: ISOPTO TEARS 0.5% OU PRN (23:28)
[2018-08-04] MEDS: ISOPTO TEARS 0.5% OU PRN ×3 (04:09→17:25)
[2018-08-04] MEDS: LASIX IV SCH ×2 (05:39→17:25)
[2018-08-04] MEDS: SODIUM CHLORIDE FLUSH SYRINGE 10 ML IV PRN (05:40)
[2018-08-04] MEDS: LOVENOX SUB-Q SCH (11:38)
[2018-08-04] MEDS: BABY ASPIRIN PO SCH (11:39)
[2018-08-04] MEDS: ZESTRIL PO SCH (11:39)
[2018-08-04] MEDS: LOPRESSOR PO SCH ×2 (11:40→21:36)
[2018-08-04] MEDS: SODIUM CHLORIDE FLUSH SYRINGE 10 ML IV SCH ×2 (11:45→21:36)
--- NOTE | 2018-08-04 12:06 | Progress Note ---
Assessment and Plan Acute hypoxic respiratory failure, - on 3 liters on O2; due to CHf and COPD exacerbation - Cardiology and Pulmonology following, continue to manage underlying cause Acute on chronic systolic heart failure: - managed with diuresis, anti failure medications, Cardiology consulted, input noted - stress mpi from 07/26 neg for ischemia, ef ~40% - pt will follow up in cardiology office with Dr. Benitez within 3-5 days of hospital discharge ([phone]) COPD; consulted Pulmonology, treated with frequent nebs and as needed, now stable Hypertension, uncontrolled: low salt diet, Diabetes Mellitus: ADA diet, ssi Morbid Obesity, bmi 59.2: counseled for outpatient NIKKI screen Noncompliant: continued financial services counselor on compliance NSVT asymptomatic: Cardiology evaluated, medical Mx, increased bblocker Physical debility- PT recommended JOCELYN - pending placement Brief history: Patient is a 63 yo woman with a history of CHF, EF of 35%, hypertension, diabetes mellitus and morbid obesity who presented to ER with c/o SOB. pCXR IMPRESSION: COPD Left lower lung and left costophrenic angle are obscured by the cardiac shadow. Any underlying infiltrates and left pleural effusion cannot be excluded. A two-view chest study is recommended whenever the patient's condition permits Hospitalist Physical Gen: WDWN, NAD, Awake, Alert, Orientated x 3,morbid obese bmi 59.2 HEENT: NCAT, EOMI, PERRL, OP Clear Neck: supple, no adenopathy, no thyromegaly, no JVD CVS/Heart: RRR, normal S1S2, pulses present bilaterally Chest/Lungs: diminished bd bilateral, Symmetrical chest expansion, good air entry bilaterally GI/Abdomen: soft, NTND, good bowel sounds, no guarding or rebound /Bladder: no suprapubic tenderness, no CVA or paraspinal tenderness Extermity/Skin: no c/c/e, no obvious rash MSK: FROM x 4 Neuro: CN 2-12 grossly intact, no new focal deficits Psych: calm Subjective Date of service: 08/04/18 Principal diagnosis: Ac hypoxemic resp failure; Ac on ch HFrEF; COPD; HTN; DM II; Obesity Interval history: Patient seen and examined No acute event o/n denies any new issue discharge pending on placement Objective - Constitutional Vitals: Vital Signs - 12hr 08/04/18 08/04/18 05:21 11:40 Temperature 98.4 F Pulse Rate 72 76 Respiratory 20 Rate Blood Pressure 120/52 O2 Sat by Pulse 97 Oximetry - Labs CBC & Chem 7: 08/01/18 10:04 08/01/18 10:04 Labs: Abnormal lab results 08/03/18 08/04/18 08/04/18 Range/Units 16:43 07:47 11:20 POC Glucose 141 H 109 H 128 H (70-105)
[2018-08-04] MEDS: IBUPROFEN PO PRN (17:25)
--- NOTE | 2018-08-04 21:40 | Progress Note ---
Assessment and Plan Patient morbidly Obese.Patient alert, awake.itting up in chair. Resting on 2 litres O2. O2 saturation 93%.No acute respiratory distress at rest at this time. - Patient Problems (1) Acute respiratory failure with hypoxia Current Visit: Yes Status: Acute Plan to address problem: O2 2 litres via nasal canula Albuterol/atrovent aerosol treatments q 6 hours. Continue S/C Lovenox. Patient refusing blood gases. (2) CHF exacerbation Current Visit: Yes Status: Acute Plan to address problem: Patient is on Lasix. Management as per cardiology. (3) Obesity Current Visit: Yes Status: Chronic Plan to address problem: Recommend to loose weight. Recommend sleep study as out patient. (4) Uncontrolled hypertension Current Visit: Yes Status: Chronic Plan to address problem: Management as per primary care. Subjective Date of service: 08/04/18 Principal diagnosis: Ac hypoxemic resp failure; Ac on ch HFrEF; COPD; HTN; DM II; Obesity Interval history: Patient morbidly Obese.Patient alert, awake.itting up in chair. Resting on 2 litres O2. O2 saturation 93%.No acute respiratory distress at rest at this time. Objective Vital Signs - 12hr 08/04/18 08/04/18 08/04/18 11:35 11:40 15:22 Temperature 97.8 F Pulse Rate 70 76 Respiratory 24 Rate Blood Pressure 133/57 O2 Sat by Pulse 97 97 Oximetry 08/04/18 17:02 Temperature 98.1 F Pulse Rate 68 Respiratory 24 Rate Blood Pressure 140/55 O2 Sat by Pulse 96 Oximetry Constitutional: no acute distress, alert, other (elderly looking, morbidly obese AAF with mild respiratory distress) Eyes: non-icteric ENT: oropharynx moist, other (Mallampati 4) Neck: supple, no JVD, other (no thyromegaly) Effort: mildly labored Ascultation: Bilateral: diminished breath sounds Percussion: Bilateral: not dull Cardiovascular: regular rate and rhythm Gastrointestinal: normoactive bowel sounds, soft, non-tender, non-distended, other (No HSM) Integumentary: rash (stasis dernatitis type rash to workman's bilateraly) Extremities: no cyanosis, cool, edema (trace) Neurologic: normal mental status, non-focal exam, pupils equal and round, CN II- XII normal, motor strength normal and Psychiatric: mood appropriate, affect normal CBC and BMP: 08/01/18 10:04 08/01/18 10:04 ABG, PT/INR, D-dimer: PT/INR, D-dimer PT 15.5 Sec. (12.2-14.9) H 07/22/18 19:35 INR 1.16 (0.87-1.13) H 07/22/18 19:35 Abnormal lab findings: Abnormal Labs 07/22/18 07/22/18 07/22/18 19:25 19:35 19:35 WBC RBC 5.07 H Hgb 14.4 H Hct 45.9 H RDW 17.2 H [place] % (Auto) 13.1 H Lymph # PT 15.5 H INR 1.16 H Chloride 94.4 L Carbon Dioxide 35 H BUN 5 L Creatinine 0.5 L Glucose 118 H POC Glucose Magnesium NT-Pro-B Natriuret Pep Total Protein 8.3 H Albumin 3.3 L 07/22/18 07/23/18 07/23/18 19:36 07:24 07:24 WBC 4.2 L RBC Hgb Hct 43.8 H RDW 16.8 H [place] % (Auto) 15.2 H Lymph # 1.1 L PT INR Chloride 95.1 L Carbon Dioxide 37 H BUN 6 L Creatinine 0.5 L Glucose 148 H POC Glucose Magnesium NT-Pro-B Natriuret Pep 3049 H Total Protein Albumin 07/23/18 07/24/18 07/24/18 11:46 06:07 06:07 WBC 3.5 L RBC Hgb Hct 43.3 H RDW 17.4 H [place] % (Auto) Lymph # PT INR Chloride 94.3 L Carbon Dioxide 34 H BUN Creatinine 0.4 L Glucose 149 H POC Glucose 119 H Magnesium 1.40 L NT-Pro-B Natriuret Pep Total Protein Albumin 07/24/18 07/24/18 07/24/18 08:06 11:49 21:34 WBC RBC Hgb Hct RDW [place] % (Auto) Lymph # PT INR Chloride Carbon Dioxide BUN Creatinine Glucose POC Glucose 115 H 143 H 118 H Magnesium NT-Pro-B Natriuret Pep Total Protein Albumin 07/25/18 07/25/18 07/25/18 08:47 11:26 16:00 WBC RBC Hgb Hct RDW [place] % (Auto) Lymph # PT INR Chloride Carbon Dioxide BUN Creatinine Glucose POC Glucose 110 H 110 H 118 H Magnesium NT-Pro-B Natriuret Pep Total Protein Albumin 07/25/18 07/26/18 07/27/18 20:58 21:36 07:59 WBC RBC Hgb Hct RDW [place] % (Auto) Lymph # PT INR Chloride Carbon Dioxide BUN Creatinine Glucose POC Glucose 118 H 130 H 114 H Magnesium NT-Pro-B Natriuret Pep Total Protein Albumin 07/27/18 07/27/18 07/28/18 11:38 16:33 07:57 WBC RBC Hgb Hct RDW [place] % (Auto) Lymph # PT INR Chloride Carbon Dioxide BUN Creatinine Glucose POC Glucose 134 H 114 H 111 H Magnesium NT-Pro-B Natriuret Pep Total Protein Albumin 07/28/18 07/28/18 07/28/18 11:52 13:01 16:02 WBC RBC Hgb Hct RDW [place] % (Auto) Lymph # PT INR Chloride 88.9 L Carbon Dioxide 42 H* D BUN Creatinine 0.4 L Glucose 103 H POC Glucose 132 H 119 H Magnesium NT-Pro-B Natriuret Pep Total Protein Albumin 07/28/18 07/29/18 07/29/18 21:30 07:51 12:22 WBC RBC Hgb Hct RDW [place] % (Auto) Lymph # PT INR Chloride Carbon Dioxide BUN Creatinine Glucose POC Glucose 119 H 109 H 121 H Magnesium NT-Pro-B Natriuret Pep Total Protein Albumin 07/29/18 07/30/18 07/30/18 17:05 17:40 21:09 WBC RBC Hgb Hct RDW [place] % (Auto) Lymph # PT INR Chloride Carbon Dioxide BUN Creatinine Glucose POC Glucose 149 H 108 H 117 H Magnesium NT-Pro-B Natriuret Pep Total Protein Albumin 07/31/18 07/31/18 07/31/18 07:43 11:27 16:50 WBC RBC Hgb Hct RDW [place] % (Auto) Lymph # PT INR Chloride Carbon Dioxide BUN Creatinine Glucose POC Glucose 113 H 122 H 132 H Magnesium NT-Pro-B Natriuret Pep Total Protein Albumin 07/31/18 08/01/18 08/01/18 21:10 07:36 10:04 WBC 3.3 L RBC Hgb Hct RDW 16.7 H [place] % (Auto) Lymph # PT INR Chloride Carbon Dioxide BUN Creatinine Glucose POC Glucose 115 H 109 H Magnesium NT-Pro-B Natriuret Pep Total Protein Albumin 08/01/18 08/01/18 08/01/18 10:04 11:32 16:43 WBC RBC Hgb Hct RDW [place] % (Auto) Lymph # PT INR Chloride 91.0 L Carbon Dioxide 39 H BUN Creatinine 0.3 L Glucose 157 H POC Glucose 127 H 120 H Magnesium NT-Pro-B Natriuret Pep Total Protein Albumin 08/02/18 08/02/18 08/02/18 11:07 16:25 21:06 WBC RBC Hgb Hct RDW [place] % (Auto) Lymph # PT INR Chloride Carbon Dioxide BUN Creatinine Glucose POC Glucose 115 H 131 H 126 H Magnesium NT-Pro-B Natriuret Pep Total Protein Albumin 08/03/18 08/03/18 08/03/18 07:24 11:35 16:43 WBC RBC Hgb Hct RDW [place] % (Auto) Lymph # PT INR Chloride Carbon Dioxide BUN Creatinine Glucose POC Glucose 107 H 108 H 141 H Magnesium NT-Pro-B Natriuret Pep Total Protein Albumin 08/04/18 08/04/18 08/04/18 07:47 11:20 16:46 WBC RBC Hgb Hct RDW [place] % (Auto) Lymph # PT INR Chloride Carbon Dioxide BUN Creatinine Glucose POC Glucose 109 H 128 H 116 H Magnesium NT-Pro-B Natriuret Pep Total Protein Albumin Allied health notes reviewed: nursing
[2018-08-05] MEDS: IBUPROFEN PO PRN ×2 (01:10→17:59)
[2018-08-05] MEDS: SODIUM CHLORIDE FLUSH SYRINGE 10 ML IV PRN (05:45)
[2018-08-05] MEDS: LASIX IV SCH ×2 (05:45→18:00)
[2018-08-05] MEDS: ZESTRIL PO SCH (09:15)
[2018-08-05] MEDS: LOPRESSOR PO SCH ×2 (09:15→22:15)
[2018-08-05] MEDS: BABY ASPIRIN PO SCH (09:16)
[2018-08-05] MEDS: LOVENOX SUB-Q SCH (09:16)
[2018-08-05] MEDS: SODIUM CHLORIDE FLUSH SYRINGE 10 ML IV SCH ×2 (09:17→22:17)
--- NOTE | 2018-08-05 13:56 | Progress Note ---
Assessment and Plan Acute hypoxic respiratory failure, - on 3 liters on O2; due to CHf and COPD exacerbation - Cardiology and Pulmonology following, continue to manage underlying cause Acute on chronic systolic heart failure: - managed with diuresis, anti failure medications, Cardiology consulted, input noted - stress mpi from 07/26 neg for ischemia, ef ~40% - pt will follow up in cardiology office with Dr. Benitez within 3-5 days of hospital discharge ([phone]) COPD; consulted Pulmonology, treated with frequent nebs and as needed, now stable Hypertension, uncontrolled: low salt diet, Diabetes Mellitus: ADA diet, ssi Morbid Obesity, bmi 59.2: counseled for outpatient NIKKI screen Noncompliant: continued addiction treatment counselor on compliance NSVT asymptomatic: Cardiology evaluated, medical Mx, increased bblocker Physical debility- PT recommended JOCELYN - pending placement Brief history: Patient is a 63 yo woman with a history of CHF, EF of 35%, hypertension, diabetes mellitus and morbid obesity who presented to ER with c/o SOB. pCXR IMPRESSION: COPD Left lower lung and left costophrenic angle are obscured by the cardiac shadow. Any underlying infiltrates and left pleural effusion cannot be excluded. A two-view chest study is recommended whenever the patient's condition permits Hospitalist Physical Gen: WDWN, NAD, Awake, Alert, Orientated x 3,morbid obese bmi 59.2 HEENT: NCAT, EOMI, PERRL, OP Clear Neck: supple, no adenopathy, no thyromegaly, no JVD CVS/Heart: RRR, normal S1S2, pulses present bilaterally Chest/Lungs: diminished bd bilateral, Symmetrical chest expansion, good air entry bilaterally GI/Abdomen: soft, NTND, good bowel sounds, no guarding or rebound /Bladder: no suprapubic tenderness, no CVA or paraspinal tenderness Extermity/Skin: no c/c/e, no obvious rash MSK: FROM x 4 Neuro: CN 2-12 grossly intact, no new focal deficits Psych: calm Subjective Date of service: 08/05/18 Principal diagnosis: Ac hypoxemic resp failure; Ac on ch HFrEF; COPD; HTN; DM II; Obesity Interval history: Patient seen and examined No acute event o/n denies any new issue discharge pending on placement Objective - Constitutional Vitals: Vital Signs - 12hr 05/08/05/18 08/05/18 05:38 05:40 12:00 Temperature 97.8 F 97.8 F 98.1 F Pulse Rate 67 69 63 Respiratory 17 18 19 Rate Blood Pressure 85/39 91/35 146/70 O2 Sat by Pulse 88 91 91 Oximetry - Labs CBC & Chem 7: 08/01/18 10:04 08/01/18 10:04 Labs: Abnormal lab results 08/04/18 08/04/18 08/05/18 Range/Units 16:46 21:30 11:45 POC Glucose 116 H 118 H 127 H (70-105)
--- NOTE | 2018-08-05 18:41 | Progress Note ---
Assessment and Plan Patient morbidly Obese.Patient alert, awake.Sitting by the side of the bed.. Resting on 2 litres O2. O2 saturation 95%.No acute respiratory distress at rest . - Patient Problems (1) Acute respiratory failure with hypoxia Current Visit: Yes Status: Acute Plan to address problem: O2 2 litres via nasal canula Albuterol/atrovent aerosol treatments q 6 hours. Symbicort 160/4.5 mcg 2 puffs po BID. Continue S/C Lovenox. Patient refusing blood gases. (2) CHF exacerbation Current Visit: Yes Status: Acute Plan to address problem: Patient is on Lasix. Management as per cardiology. (3) Obesity Current Visit: Yes Status: Chronic Plan to address problem: Recommend to loose weight. Recommend sleep study as out patient. (4) Uncontrolled hypertension Current Visit: Yes Status: Chronic Plan to address problem: Management as per primary care. Subjective Date of service: 08/05/18 Principal diagnosis: Ac hypoxemic resp failure; Ac on ch HFrEF; COPD; HTN; DM II; Obesity Interval history: Patient morbidly Obese.Patient alert, awake.Sitting by the side of the bed.. Resting on 2 litres O2. O2 saturation 95%.No acute respiratory distress at rest . Objective Vital Signs - 12hr 08/05/18 08/05/18 08/05/18 10:00 12:00 17:11 Temperature 98.1 F 98.2 F Pulse Rate 63 75 Respiratory 19 18 Rate Blood Pressure 146/70 151/68 O2 Sat by Pulse 96 91 95 Oximetry Constitutional: no acute distress, alert, other (elderly looking, morbidly obese AAF with mild respiratory distress) Eyes: non-icteric ENT: oropharynx moist, other (Mallampati 4) Neck: supple, no JVD, other (no thyromegaly) Effort: mildly labored Ascultation: Bilateral: diminished breath sounds Percussion: Bilateral: not dull Cardiovascular: regular rate and rhythm Gastrointestinal: normoactive bowel sounds, soft, non-tender, non-distended, other (No HSM) Integumentary: rash (stasis dernatitis type rash to workman's bilateraly) Extremities: no cyanosis, cool, edema (trace) Neurologic: normal mental status, non-focal exam, pupils equal and round, CN II- XII normal, motor strength normal and Psychiatric: mood appropriate, affect normal CBC and BMP: 08/01/18 10:04 08/01/18 10:04 ABG, PT/INR, D-dimer: PT/INR, D-dimer PT 15.5 Sec. (12.2-14.9) H 07/22/18 19:35 INR 1.16 (0.87-1.13) H 07/22/18 19:35 Abnormal lab findings: Abnormal Labs 07/22/18 07/22/18 07/22/18 19:25 19:35 19:35 WBC RBC 5.07 H Hgb 14.4 H Hct 45.9 H RDW 17.2 H [place] % (Auto) 13.1 H Lymph # PT 15.5 H INR 1.16 H Chloride 94.4 L Carbon Dioxide 35 H BUN 5 L Creatinine 0.5 L Glucose 118 H POC Glucose Magnesium NT-Pro-B Natriuret Pep Total Protein 8.3 H Albumin 3.3 L 07/22/18 07/23/18 07/23/18 19:36 07:24 07:24 WBC 4.2 L RBC Hgb Hct 43.8 H RDW 16.8 H [place] % (Auto) 15.2 H Lymph # 1.1 L PT INR Chloride 95.1 L Carbon Dioxide 37 H BUN 6 L Creatinine 0.5 L Glucose 148 H POC Glucose Magnesium NT-Pro-B Natriuret Pep 3049 H Total Protein Albumin 07/23/18 07/24/18 07/24/18 11:46 06:07 06:07 WBC 3.5 L RBC Hgb Hct 43.3 H RDW 17.4 H [place] % (Auto) Lymph # PT INR Chloride 94.3 L Carbon Dioxide 34 H BUN Creatinine 0.4 L Glucose 149 H POC Glucose 119 H Magnesium 1.40 L NT-Pro-B Natriuret Pep Total Protein Albumin 07/24/18 07/24/18 07/24/18 08:06 11:49 21:34 WBC RBC Hgb Hct RDW [place] % (Auto) Lymph # PT INR Chloride Carbon Dioxide BUN Creatinine Glucose POC Glucose 115 H 143 H 118 H Magnesium NT-Pro-B Natriuret Pep Total Protein Albumin 07/25/18 07/25/18 07/25/18 08:47 11:26 16:00 WBC RBC Hgb Hct RDW [place] % (Auto) Lymph # PT INR Chloride Carbon Dioxide BUN Creatinine Glucose POC Glucose 110 H 110 H 118 H Magnesium NT-Pro-B Natriuret Pep Total Protein Albumin 07/25/18 07/26/18 07/27/18 20:58 21:36 07:59 WBC RBC Hgb Hct RDW [place] % (Auto) Lymph # PT INR Chloride Carbon Dioxide BUN Creatinine Glucose POC Glucose 118 H 130 H 114 H Magnesium NT-Pro-B Natriuret Pep Total Protein Albumin 07/27/18 07/27/18 07/28/18 11:38 16:33 07:57 WBC RBC Hgb Hct RDW [place] % (Auto) Lymph # PT INR Chloride Carbon Dioxide BUN Creatinine Glucose POC Glucose 134 H 114 H 111 H Magnesium NT-Pro-B Natriuret Pep Total Protein Albumin 07/28/18 07/28/18 07/28/18 11:52 13:01 16:02 WBC RBC Hgb Hct RDW [place] % (Auto) Lymph # PT INR Chloride 88.9 L Carbon Dioxide 42 H* D BUN Creatinine 0.4 L Glucose 103 H POC Glucose 132 H 119 H Magnesium NT-Pro-B Natriuret Pep Total Protein Albumin 07/28/18 07/29/18 07/29/18 21:30 07:51 12:22 WBC RBC Hgb Hct RDW [place] % (Auto) Lymph # PT INR Chloride Carbon Dioxide BUN Creatinine Glucose POC Glucose 119 H 109 H 121 H Magnesium NT-Pro-B Natriuret Pep Total Protein Albumin 07/29/18 07/30/18 07/30/18 17:05 17:40 21:09 WBC RBC Hgb Hct RDW [place] % (Auto) Lymph # PT INR Chloride Carbon Dioxide BUN Creatinine Glucose POC Glucose 149 H 108 H 117 H Magnesium NT-Pro-B Natriuret Pep Total Protein Albumin 07/31/18 07/31/18 07/31/18 07:43 11:27 16:50 WBC RBC Hgb Hct RDW [place] % (Auto) Lymph # PT INR Chloride Carbon Dioxide BUN Creatinine Glucose POC Glucose 113 H 122 H 132 H Magnesium NT-Pro-B Natriuret Pep Total Protein Albumin 07/31/18 08/01/18 08/01/18 21:10 07:36 10:04 WBC 3.3 L RBC Hgb Hct RDW 16.7 H [place] % (Auto) Lymph # PT INR Chloride Carbon Dioxide BUN Creatinine Glucose POC Glucose 115 H 109 H Magnesium NT-Pro-B Natriuret Pep Total Protein Albumin 08/01/18 08/01/18 08/01/18 10:04 11:32 16:43 WBC RBC Hgb Hct RDW [place] % (Auto) Lymph # PT INR Chloride 91.0 L Carbon Dioxide 39 H BUN Creatinine 0.3 L Glucose 157 H POC Glucose 127 H 120 H Magnesium NT-Pro-B Natriuret Pep Total Protein Albumin 08/02/18 08/02/18 08/02/18 11:07 16:25 21:06 WBC RBC Hgb Hct RDW [place] % (Auto) Lymph # PT INR Chloride Carbon Dioxide BUN Creatinine Glucose POC Glucose 115 H 131 H 126 H Magnesium NT-Pro-B Natriuret Pep Total Protein Albumin 08/03/18 08/03/18 08/03/18 07:24 11:35 16:43 WBC RBC Hgb Hct RDW [place] % (Auto) Lymph # PT INR Chloride Carbon Dioxide BUN Creatinine Glucose POC Glucose 107 H 108 H 141 H Magnesium NT-Pro-B Natriuret Pep Total Protein Albumin 08/04/18 08/04/18 08/04/18 07:47 11:20 16:46 WBC RBC Hgb Hct RDW [place] % (Auto) Lymph # PT INR Chloride Carbon Dioxide BUN Creatinine Glucose POC Glucose 109 H 128 H 116 H Magnesium NT-Pro-B Natriuret Pep Total Protein Albumin 08/04/18 08/05/18 08/05/18 21:30 11:45 16:38 WBC RBC Hgb Hct RDW [place] % (Auto) Lymph # PT INR Chloride Carbon Dioxide BUN Creatinine Glucose POC Glucose 118 H 127 H 336 H Magnesium NT-Pro-B Natriuret Pep Total Protein Albumin Allied health notes reviewed: nursing
[2018-08-05] MEDS ORDERED: HumuLIN R SUB-Q ONE (18:57)
[2018-08-05] MEDS: BROVANA NEBU IH SCH (22:21)
[2018-08-05] MEDS: PULMICORT IH SCH (22:21)
[2018-08-06] MEDS: IBUPROFEN PO PRN ×2 (01:33→14:25)
[2018-08-06] MEDS: LASIX IV SCH ×2 (06:45→17:57)
[2018-08-06] MEDS: BROVANA NEBU IH SCH ×2 (09:30→20:29)
[2018-08-06] MEDS: PULMICORT IH SCH ×2 (09:30→20:29)
[2018-08-06] MEDS: ZESTRIL PO SCH (09:35)
[2018-08-06] MEDS: LOPRESSOR PO SCH (09:35)
[2018-08-06] MEDS: SODIUM CHLORIDE FLUSH SYRINGE 10 ML IV SCH (09:36)
[2018-08-06] MEDS: BABY ASPIRIN PO SCH (09:36)
[2018-08-06] MEDS: LOVENOX SUB-Q SCH (09:36)
[2018-08-07] MEDS: LOPRESSOR PO SCH ×3 (00:48→22:40)
[2018-08-07] MEDS: IBUPROFEN PO PRN ×3 (00:50→18:25)
[2018-08-07] MEDS: SODIUM CHLORIDE FLUSH SYRINGE 10 ML IV SCH ×3 (00:50→22:41)
[2018-08-07] MEDS: LASIX IV SCH ×2 (06:41→18:17)
[2018-08-07] MEDS: SODIUM CHLORIDE FLUSH SYRINGE 10 ML IV PRN (06:41)
--- NOTE | 2018-08-07 10:21 | Progress Note ---
Assessment and Plan Acute hypoxic respiratory failure, - on 3 liters on O2; due to CHf and COPD exacerbation - Cardiology and Pulmonology following, continue to manage underlying cause Acute on chronic systolic heart failure: - managed with diuresis, anti failure medications, Cardiology consulted, input noted - stress mpi from 07/26 neg for ischemia, ef ~40% - pt will follow up in cardiology office with Dr. Benitez within 3-5 days of hospital discharge ([phone]) COPD; consulted Pulmonology, treated with frequent nebs and as needed, now stable Hypertension, uncontrolled: low salt diet, Diabetes Mellitus: ADA diet, ssi Morbid Obesity, bmi 59.2: counseled for outpatient NIKKI screen Noncompliant: continued area counselor on compliance NSVT asymptomatic: Cardiology evaluated, medical Mx, increased bblocker Physical debility- PT recommended JOCELYN - pending placement Brief history: Patient is a 63 yo woman with a history of CHF, EF of 35%, hypertension, diabetes mellitus and morbid obesity who presented to ER with c/o SOB. pCXR IMPRESSION: COPD Left lower lung and left costophrenic angle are obscured by the cardiac shadow. Any underlying infiltrates and left pleural effusion cannot be excluded. A two-view chest study is recommended whenever the patient's condition permits Hospitalist Physical Gen: WDWN, NAD, Awake, Alert, Orientated x 3,morbid obese bmi 59.2 HEENT: NCAT, EOMI, PERRL, OP Clear Neck: supple, no adenopathy, no thyromegaly, no JVD CVS/Heart: RRR, normal S1S2, pulses present bilaterally Chest/Lungs: diminished bd bilateral, Symmetrical chest expansion, good air entry bilaterally GI/Abdomen: soft, NTND, good bowel sounds, no guarding or rebound /Bladder: no suprapubic tenderness, no CVA or paraspinal tenderness Extermity/Skin: no c/c/e, no obvious rash MSK: FROM x 4 Neuro: CN 2-12 grossly intact, no new focal deficits Psych: calm Subjective Date of service: 08/06/18 Principal diagnosis: Ac hypoxemic resp failure; Ac on ch HFrEF; COPD; HTN; DM II; Obesity Interval history: Patient seen and examined No acute event o/n denies any new issue discharge pending on placement Objective - Constitutional Vitals: Vital Signs - 12hr 08/07/18 08/07/18 00:48 05:33 Temperature 97.2 F L Pulse Rate 77 62 Respiratory 20 Rate Blood Pressure 156/77 157/75 O2 Sat by Pulse 96 Oximetry - Labs CBC & Chem 7: 08/01/18 10:04 08/01/18 10:04 Labs: Abnormal lab results 08/06/18 08/06/18 08/06/18 Range/Units 11:38 16:34 21:03 POC Glucose 116 H 139 H 113 H (70-105) 08/07/18 Range/Units 08:05 POC Glucose 114 H (70-105)
[2018-08-07] MEDS: LOVENOX SUB-Q SCH (12:01)
[2018-08-07] MEDS: BABY ASPIRIN PO SCH (12:03)
[2018-08-07] MEDS: ZESTRIL PO SCH (12:03)
[2018-08-07] MEDS: PULMICORT IH SCH ×2 (12:43→19:49)
[2018-08-07] MEDS: BROVANA NEBU IH SCH ×2 (12:43→19:50)
--- NOTE | 2018-08-07 17:25 | Progress Note ---
Assessment and Plan atient morbidly Obese.Patient alert, awake.Walking in [address] with walker. On 2 litres O2. O2 saturation 97%.No acute respiratory distress at rest . - Patient Problems (1) Acute respiratory failure with hypoxia Current Visit: Yes Status: Acute Plan to address problem: O2 2 litres via nasal canula Albuterol/atrovent aerosol treatments q 6 hours. Symbicort 160/4.5 mcg 2 puffs po BID. Continue S/C Lovenox. Patient refusing blood gases. (2) CHF exacerbation Current Visit: Yes Status: Acute Plan to address problem: Patient is on Lasix. Management as per cardiology. (3) Obesity Current Visit: Yes Status: Chronic Plan to address problem: Recommend to loose weight. Recommend sleep study as out patient. (4) Uncontrolled hypertension Current Visit: Yes Status: Chronic Plan to address problem: Management as per primary care. Subjective Date of service: 08/07/18 Principal diagnosis: HF Interval history: Patient morbidly Obese.Patient alert, awake.Walking in the [address] [address] with walker. On 2 litres O2. O2 saturation 97%.No acute respiratory distress at rest . Objective Vital Signs - 12hr 08/07/18 08/07/18 08/07/18 05:33 11:43 12:01 Temperature 97.2 F L 98.3 F Pulse Rate 62 86 Pulse Rate [ Anterior Bilateral Throughout] Respiratory 20 22 Rate Respiratory Rate [Anterior Bilateral Throughout] Blood Pressure 157/75 143/93 143/93 O2 Sat by Pulse 96 88 Oximetry 08/07/18 08/07/18 08/07/18 12:38 12:54 12:56 Temperature Pulse Rate Pulse Rate [ 84 74 Anterior Bilateral Throughout] Respiratory Rate Respiratory 22 20 Rate [Anterior Bilateral Throughout] Blood Pressure O2 Sat by Pulse 97 Oximetry Constitutional: no acute distress, alert Eyes: non-icteric ENT: oropharynx moist Neck: supple, no JVD Effort: mildly labored Ascultation: Bilateral: diminished breath sounds Percussion: Bilateral: not dull Cardiovascular: regular rate and rhythm Gastrointestinal: normoactive bowel sounds, soft, non-tender, non-distended, other (anterior abdominal wall edema) Integumentary: normal Extremities: no cyanosis, cool, edema Neurologic: normal mental status, non-focal exam, pupils equal and round, CN II- XII normal Psychiatric: mood appropriate CBC and BMP: 08/01/18 10:04 08/01/18 10:04 ABG, PT/INR, D-dimer: PT/INR, D-dimer PT 15.5 Sec. (12.2-14.9) H 07/22/18 19:35 INR 1.16 (0.87-1.13) H 07/22/18 19:35 Abnormal lab findings: Abnormal Labs 07/22/18 07/22/18 07/22/18 19:25 19:35 19:35 WBC RBC 5.07 H Hgb 14.4 H Hct 45.9 H RDW 17.2 H [place] % (Auto) 13.1 H Lymph # PT 15.5 H INR 1.16 H Chloride 94.4 L Carbon Dioxide 35 H BUN 5 L Creatinine 0.5 L Glucose 118 H POC Glucose Magnesium NT-Pro-B Natriuret Pep Total Protein 8.3 H Albumin 3.3 L 07/22/18 07/23/18 07/23/18 19:36 07:24 07:24 WBC 4.2 L RBC Hgb Hct 43.8 H RDW 16.8 H [place] % (Auto) 15.2 H Lymph # 1.1 L PT INR Chloride 95.1 L Carbon Dioxide 37 H BUN 6 L Creatinine 0.5 L Glucose 148 H POC Glucose Magnesium NT-Pro-B Natriuret Pep 3049 H Total Protein Albumin 07/23/18 07/24/18 07/24/18 11:46 06:07 06:07 WBC 3.5 L RBC Hgb Hct 43.3 H RDW 17.4 H [place] % (Auto) Lymph # PT INR Chloride 94.3 L Carbon Dioxide 34 H BUN Creatinine 0.4 L Glucose 149 H POC Glucose 119 H Magnesium 1.40 L NT-Pro-B Natriuret Pep Total Protein Albumin 07/24/18 07/24/18 07/24/18 08:06 11:49 21:34 WBC RBC Hgb Hct RDW [place] % (Auto) Lymph # PT INR Chloride Carbon Dioxide BUN Creatinine Glucose POC Glucose 115 H 143 H 118 H Magnesium NT-Pro-B Natriuret Pep Total Protein Albumin 07/25/18 07/25/18 07/25/18 08:47 11:26 16:00 WBC RBC Hgb Hct RDW [place] % (Auto) Lymph # PT INR Chloride Carbon Dioxide BUN Creatinine Glucose POC Glucose 110 H 110 H 118 H Magnesium NT-Pro-B Natriuret Pep Total Protein Albumin 07/25/18 07/26/18 07/27/18 20:58 21:36 07:59 WBC RBC Hgb Hct RDW [place] % (Auto) Lymph # PT INR Chloride Carbon Dioxide BUN Creatinine Glucose POC Glucose 118 H 130 H 114 H Magnesium NT-Pro-B Natriuret Pep Total Protein Albumin 07/27/18 07/27/18 07/28/18 11:38 16:33 07:57 WBC RBC Hgb Hct RDW [place] % (Auto) Lymph # PT INR Chloride Carbon Dioxide BUN Creatinine Glucose POC Glucose 134 H 114 H 111 H Magnesium NT-Pro-B Natriuret Pep Total Protein Albumin 07/28/18 07/28/18 07/28/18 11:52 13:01 16:02 WBC RBC Hgb Hct RDW [place] % (Auto) Lymph # PT INR Chloride 88.9 L Carbon Dioxide 42 H* D BUN Creatinine 0.4 L Glucose 103 H POC Glucose 132 H 119 H Magnesium NT-Pro-B Natriuret Pep Total Protein Albumin 07/28/18 07/29/18 07/29/18 21:30 07:51 12:22 WBC RBC Hgb Hct RDW [place] % (Auto) Lymph # PT INR Chloride Carbon Dioxide BUN Creatinine Glucose POC Glucose 119 H 109 H 121 H Magnesium NT-Pro-B Natriuret Pep Total Protein Albumin 07/29/18 07/30/18 07/30/18 17:05 17:40 21:09 WBC RBC Hgb Hct RDW [place] % (Auto) Lymph # PT INR Chloride Carbon Dioxide BUN Creatinine Glucose POC Glucose 149 H 108 H 117 H Magnesium NT-Pro-B Natriuret Pep Total Protein Albumin 07/31/18 07/31/18 07/31/18 07:43 11:27 16:50 WBC RBC Hgb Hct RDW [place] % (Auto) Lymph # PT INR Chloride Carbon Dioxide BUN Creatinine Glucose POC Glucose 113 H 122 H 132 H Magnesium NT-Pro-B Natriuret Pep Total Protein Albumin 07/31/18 08/01/18 08/01/18 21:10 07:36 10:04 WBC 3.3 L RBC Hgb Hct RDW 16.7 H [place] % (Auto) Lymph # PT INR Chloride Carbon Dioxide BUN Creatinine Glucose POC Glucose 115 H 109 H Magnesium NT-Pro-B Natriuret Pep Total Protein Albumin 08/01/18 08/01/18 08/01/18 10:04 11:32 16:43 WBC RBC Hgb Hct RDW [place] % (Auto) Lymph # PT INR Chloride 91.0 L Carbon Dioxide 39 H BUN Creatinine 0.3 L Glucose 157 H POC Glucose 127 H 120 H Magnesium NT-Pro-B Natriuret Pep Total Protein Albumin 08/02/18 08/02/18 08/02/18 11:07 16:25 21:06 WBC RBC Hgb Hct RDW [place] % (Auto) Lymph # PT INR Chloride Carbon Dioxide BUN Creatinine Glucose POC Glucose 115 H 131 H 126 H Magnesium NT-Pro-B Natriuret Pep Total Protein Albumin 08/03/18 08/03/18 08/03/18 07:24 11:35 16:43 WBC RBC Hgb Hct RDW [place] % (Auto) Lymph # PT INR Chloride Carbon Dioxide BUN Creatinine Glucose POC Glucose 107 H 108 H 141 H Magnesium NT-Pro-B Natriuret Pep Total Protein Albumin 08/04/18 08/04/18 08/04/18 07:47 11:20 16:46 WBC RBC Hgb Hct RDW [place] % (Auto) Lymph # PT INR Chloride Carbon Dioxide BUN Creatinine Glucose POC Glucose 109 H 128 H 116 H Magnesium NT-Pro-B Natriuret Pep Total Protein Albumin 08/04/18 08/05/18 08/05/18 21:30 11:45 16:38 WBC RBC Hgb Hct RDW [place] % (Auto) Lymph # PT INR Chloride Carbon Dioxide BUN Creatinine Glucose POC Glucose 118 H 127 H 336 H Magnesium NT-Pro-B Natriuret Pep Total Protein Albumin 08/06/18 08/06/18 08/06/18 11:38 16:34 21:03 WBC RBC Hgb Hct RDW [place] % (Auto) Lymph # PT INR Chloride Carbon Dioxide BUN Creatinine Glucose POC Glucose 116 H 139 H 113 H Magnesium NT-Pro-B Natriuret Pep Total Protein Albumin 08/07/18 08/07/18 08/07/18 08:05 11:19 16:20 WBC RBC Hgb Hct RDW [place] % (Auto) Lymph # PT INR Chloride Carbon Dioxide BUN Creatinine Glucose POC Glucose 114 H 115 H 125 H Magnesium NT-Pro-B Natriuret Pep Total Protein Albumin Allied health notes reviewed: nursing
--- NOTE | 2018-08-07 23:58 | Progress Note ---
Assessment and Plan Acute hypoxic respiratory failure, - on 3 liters on O2; due to CHf and COPD exacerbation - Cardiology and Pulmonology following, continue to manage underlying cause Acute on chronic systolic heart failure: - managed with diuresis, anti failure medications, Cardiology consulted, input noted - stress mpi from 07/26 neg for ischemia, ef ~40% - pt will follow up in cardiology office with Dr. Benitez within 3-5 days of hospital discharge ([phone]) COPD; consulted Pulmonology, treated with frequent nebs and as needed, now stable Hypertension, uncontrolled: low salt diet, Diabetes Mellitus: ADA diet, ssi Morbid Obesity, bmi 59.2: counseled for outpatient NIKKI screen Noncompliant: continued intellectual property counsel on compliance NSVT asymptomatic: Cardiology evaluated, medical Mx, increased bblocker Physical debility- PT recommended JOCELYN - pending placement Brief history: Patient is a 63 yo woman with a history of CHF, EF of 35%, hypertension, diabetes mellitus and morbid obesity who presented to ER with c/o SOB. pCXR IMPRESSION: COPD Left lower lung and left costophrenic angle are obscured by the cardiac shadow. Any underlying infiltrates and left pleural effusion cannot be excluded. A two-view chest study is recommended whenever the patient's condition permits Hospitalist Physical Gen: WDWN, NAD, Awake, Alert, Orientated x 3,morbid obese bmi 59.2 HEENT: NCAT, EOMI, PERRL, OP Clear Neck: supple, no adenopathy, no thyromegaly, no JVD CVS/Heart: RRR, normal S1S2, pulses present bilaterally Chest/Lungs: diminished bd bilateral, Symmetrical chest expansion, good air entry bilaterally GI/Abdomen: soft, NTND, good bowel sounds, no guarding or rebound /Bladder: no suprapubic tenderness, no CVA or paraspinal tenderness Extermity/Skin: no c/c/e, no obvious rash MSK: FROM x 4 Neuro: CN 2-12 grossly intact, no new focal deficits Psych: calm Subjective Date of service: 08/07/18 Principal diagnosis: HF Interval history: Patient seen and examined No acute event o/n denies any new issue discharge pending on placement Objective - Constitutional Vitals: Vital Signs - 12hr 08/07/18 08/07/18 08/07/18 12:01 12:38 12:54 Temperature Pulse Rate Pulse Rate [ 84 Anterior Bilateral Throughout] Respiratory Rate Respiratory 22 Rate [Anterior Bilateral Throughout] Blood Pressure 143/93 O2 Sat by Pulse 97 Oximetry 08/07/18 08/07/18 08/07/18 12:56 16:30 19:55 Temperature 98.2 F Pulse Rate 64 Pulse Rate [ 74 74 Anterior Bilateral Throughout] Respiratory 22 Rate Respiratory 20 18 Rate [Anterior Bilateral Throughout] Blood Pressure 152/76 O2 Sat by Pulse 91 95 Oximetry 08/07/18 08/07/18 08/07/18 20:11 22:17 22:40 Temperature 98.4 F Pulse Rate 67 69 Pulse Rate [ 75 Anterior Bilateral Throughout] Respiratory 20 Rate Respiratory 20 Rate [Anterior Bilateral Throughout] Blood Pressure 137/72 178/81 O2 Sat by Pulse 96 Oximetry - Labs CBC & Chem 7: 08/01/18 10:04 08/01/18 10:04 Labs: Abnormal lab results 08/07/18 08/07/18 08/07/18 Range/Units 08:05 11:19 16:20 POC Glucose 114 H 115 H 125 H (70-105) 08/07/18 Range/Units 21:34 POC Glucose 107 H (70-105)
[2018-08-08] MEDS: IBUPROFEN PO PRN ×2 (06:10→19:28)
[2018-08-08] MEDS: LASIX IV SCH ×2 (06:10→19:28)
[2018-08-08] MEDS: SODIUM CHLORIDE FLUSH SYRINGE 10 ML IV PRN (06:12)
[2018-08-08] MEDS: PULMICORT IH SCH ×2 (07:28→19:11)
[2018-08-08] MEDS: BROVANA NEBU IH SCH ×2 (07:28→19:11)
--- NOTE | 2018-08-08 08:38 | Progress Note ---
Assessment and Plan Acute hypoxic respiratory failure on 3L NC Acute on chronic systolic heart failure: COPD Hypertension Diabetes Mellitus: Extreme Obesity, bmi 59.2 Metabolic alkalosis -Continue supplemental oxygen, wean for O2 sats>90% -VTE prophylaxis -Bronchodilators per protocol -Diuresis as tolerated by renal function and hemodynamics -Heart failure measures -Out patient sleep study -Nocturnal CPAP as tolerated -Cardioprotective measures -Glycemic control -Weight loss and lifestyle modifications -Need for medical compliance discussed -Discharge planning per primary service - stress mpi from 07/26 neg for ischemia, ef ~40% - pt will follow up in cardiology office with Dr. Benitez within 3-5 days of hospital discharge ([phone]) Please schedule for out patient pulmonary follow up on discharge for evaluation of COPD, needs PFTs for pulmonary physiology Sleep study as outpatient in view of morbid obesity and CHF Subjective Date of service: 08/08/18 Principal diagnosis: HF Interval history: Follow up for acute hypoxemic rspiratory failure: COPD; Extreme obesity: acute on chronic heart failure Seen and examined. 24 hour events reviewed. Sitting up in bed on 3L NC, with some shortness of breath. Denies any fevers or chills, no nausea or vomiting. No new events Objective Vital Signs - 12hr 08/07/18 08/07/18 08/07/18 22:00 22:17 22:40 Temperature 98.4 F Pulse Rate 67 69 Pulse Rate [ Anterior Bilateral Throughout] Pulse Rate [ 67 From Monitor] Respiratory 20 20 Rate Respiratory Rate [Anterior Bilateral Throughout] Blood Pressure 137/72 178/81 O2 Sat by Pulse 96 96 Oximetry 08/08/18 08/08/18 08/08/18 05:12 07:28 07:29 Temperature 97.4 F L Pulse Rate 61 Pulse Rate [ 64 Anterior Bilateral Throughout] Pulse Rate [ From Monitor] Respiratory 18 Rate Respiratory 17 Rate [Anterior Bilateral Throughout] Blood Pressure 132/60 O2 Sat by Pulse 98 98 Oximetry Constitutional: no acute distress, alert Eyes: non-icteric ENT: oropharynx moist Neck: supple, no JVD Effort: mildly labored Ascultation: Bilateral: clear, diminished breath sounds Percussion: Bilateral: not dull Cardiovascular: regular rate and rhythm Gastrointestinal: normoactive bowel sounds, soft, non-tender, non-distended, other (anterior abdominal wall edema) Integumentary: normal Extremities: no cyanosis, cool, edema Neurologic: normal mental status, non-focal exam, pupils equal and round, CN II- XII normal Psychiatric: mood appropriate CBC and BMP: 08/01/18 10:04 08/01/18 10:04 ABG, PT/INR, D-dimer: PT/INR, D-dimer PT 15.5 Sec. (12.2-14.9) H 07/22/18 19:35 INR 1.16 (0.87-1.13) H 07/22/18 19:35 Abnormal lab findings: Abnormal Labs 07/22/18 07/22/18 07/22/18 19:25 19:35 19:35 WBC RBC 5.07 H Hgb 14.4 H Hct 45.9 H RDW 17.2 H [place] % (Auto) 13.1 H Lymph # PT 15.5 H INR 1.16 H Chloride 94.4 L Carbon Dioxide 35 H BUN 5 L Creatinine 0.5 L Glucose 118 H POC Glucose Magnesium NT-Pro-B Natriuret Pep Total Protein 8.3 H Albumin 3.3 L 07/22/18 07/23/18 07/23/18 19:36 07:24 07:24 WBC 4.2 L RBC Hgb Hct 43.8 H RDW 16.8 H [place] % (Auto) 15.2 H Lymph # 1.1 L PT INR Chloride 95.1 L Carbon Dioxide 37 H BUN 6 L Creatinine 0.5 L Glucose 148 H POC Glucose Magnesium NT-Pro-B Natriuret Pep 3049 H Total Protein Albumin 07/23/18 07/24/18 07/24/18 11:46 06:07 06:07 WBC 3.5 L RBC Hgb Hct 43.3 H RDW 17.4 H [place] % (Auto) Lymph # PT INR Chloride 94.3 L Carbon Dioxide 34 H BUN Creatinine 0.4 L Glucose 149 H POC Glucose 119 H Magnesium 1.40 L NT-Pro-B Natriuret Pep Total Protein Albumin 07/24/18 07/24/18 07/24/18 08:06 11:49 21:34 WBC RBC Hgb Hct RDW [place] % (Auto) Lymph # PT INR Chloride Carbon Dioxide BUN Creatinine Glucose POC Glucose 115 H 143 H 118 H Magnesium NT-Pro-B Natriuret Pep Total Protein Albumin 07/25/18 07/25/18 07/25/18 08:47 11:26 16:00 WBC RBC Hgb Hct RDW [place] % (Auto) Lymph # PT INR Chloride Carbon Dioxide BUN Creatinine Glucose POC Glucose 110 H 110 H 118 H Magnesium NT-Pro-B Natriuret Pep Total Protein Albumin 07/25/18 07/26/18 07/27/18 20:58 21:36 07:59 WBC RBC Hgb Hct RDW [place] % (Auto) Lymph # PT INR Chloride Carbon Dioxide BUN Creatinine Glucose POC Glucose 118 H 130 H 114 H Magnesium NT-Pro-B Natriuret Pep Total Protein Albumin 07/27/18 07/27/18 07/28/18 11:38 16:33 07:57 WBC RBC Hgb Hct RDW [place] % (Auto) Lymph # PT INR Chloride Carbon Dioxide BUN Creatinine Glucose POC Glucose 134 H 114 H 111 H Magnesium NT-Pro-B Natriuret Pep Total Protein Albumin 07/28/18 07/28/18 07/28/18 11:52 13:01 16:02 WBC RBC Hgb Hct RDW [place] % (Auto) Lymph # PT INR Chloride 88.9 L Carbon Dioxide 42 H* D BUN Creatinine 0.4 L Glucose 103 H POC Glucose 132 H 119 H Magnesium NT-Pro-B Natriuret Pep Total Protein Albumin 07/28/18 07/29/18 07/29/18 21:30 07:51 12:22 WBC RBC Hgb Hct RDW [place] % (Auto) Lymph # PT INR Chloride Carbon Dioxide BUN Creatinine Glucose POC Glucose 119 H 109 H 121 H Magnesium NT-Pro-B Natriuret Pep Total Protein Albumin 07/29/18 07/30/18 07/30/18 17:05 17:40 21:09 WBC RBC Hgb Hct RDW [place] % (Auto) Lymph # PT INR Chloride Carbon Dioxide BUN Creatinine Glucose POC Glucose 149 H 108 H 117 H Magnesium NT-Pro-B Natriuret Pep Total Protein Albumin 07/31/18 07/31/18 07/31/18 07:43 11:27 16:50 WBC RBC Hgb Hct RDW [place] % (Auto) Lymph # PT INR Chloride Carbon Dioxide BUN Creatinine Glucose POC Glucose 113 H 122 H 132 H Magnesium NT-Pro-B Natriuret Pep Total Protein Albumin 07/31/18 08/01/18 08/01/18 21:10 07:36 10:04 WBC 3.3 L RBC Hgb Hct RDW 16.7 H [place] % (Auto) Lymph # PT INR Chloride Carbon Dioxide BUN Creatinine Glucose POC Glucose 115 H 109 H Magnesium NT-Pro-B Natriuret Pep Total Protein Albumin 08/01/18 08/01/18 08/01/18 10:04 11:32 16:43 WBC RBC Hgb Hct RDW [place] % (Auto) Lymph # PT INR Chloride 91.0 L Carbon Dioxide 39 H BUN Creatinine 0.3 L Glucose 157 H POC Glucose 127 H 120 H Magnesium NT-Pro-B Natriuret Pep Total Protein Albumin 08/02/18 08/02/18 08/02/18 11:07 16:25 21:06 WBC RBC Hgb Hct RDW [place] % (Auto) Lymph # PT INR Chloride Carbon Dioxide BUN Creatinine Glucose POC Glucose 115 H 131 H 126 H Magnesium NT-Pro-B Natriuret Pep Total Protein Albumin 08/03/18 08/03/18 08/03/18 07:24 11:35 16:43 WBC RBC Hgb Hct RDW [place] % (Auto) Lymph # PT INR Chloride Carbon Dioxide BUN Creatinine Glucose POC Glucose 107 H 108 H 141 H Magnesium NT-Pro-B Natriuret Pep Total Protein Albumin 08/04/18 08/04/18 08/04/18 07:47 11:20 16:46 WBC RBC Hgb Hct RDW [place] % (Auto) Lymph # PT INR Chloride Carbon Dioxide BUN Creatinine Glucose POC Glucose 109 H 128 H 116 H Magnesium NT-Pro-B Natriuret Pep Total Protein Albumin 08/04/18 08/05/18 08/05/18 21:30 11:45 16:38 WBC RBC Hgb Hct RDW [place] % (Auto) Lymph # PT INR Chloride Carbon Dioxide BUN Creatinine Glucose POC Glucose 118 H 127 H 336 H Magnesium NT-Pro-B Natriuret Pep Total Protein Albumin 08/06/18 08/06/18 08/06/18 11:38 16:34 21:03 WBC RBC Hgb Hct RDW [place] % (Auto) Lymph # PT INR Chloride Carbon Dioxide BUN Creatinine Glucose POC Glucose 116 H 139 H 113 H Magnesium NT-Pro-B Natriuret Pep Total Protein Albumin 08/07/18 08/07/18 08/07/18 08:05 11:19 16:20 WBC RBC Hgb Hct RDW [place] % (Auto) Lymph # PT INR Chloride Carbon Dioxide BUN Creatinine Glucose POC Glucose 114 H 115 H 125 H Magnesium NT-Pro-B Natriuret Pep Total Protein Albumin 08/07/18 08/08/18 21:34 07:50 WBC RBC Hgb Hct RDW [place] % (Auto) Lymph # PT INR Chloride Carbon Dioxide BUN Creatinine Glucose POC Glucose 107 H 114 H Magnesium NT-Pro-B Natriuret Pep Total Protein Albumin Allied health notes reviewed: nursing
[2018-08-08] MEDS: LOPRESSOR PO SCH ×2 (12:09→22:04)
[2018-08-08] MEDS: ZESTRIL PO SCH (12:09)
[2018-08-08] MEDS: BABY ASPIRIN PO SCH (12:09)
[2018-08-08] MEDS: TYLENOL PO PRN (12:10)
[2018-08-08] MEDS: LOVENOX SUB-Q SCH (12:10)
[2018-08-08] MEDS: SODIUM CHLORIDE FLUSH SYRINGE 10 ML IV SCH ×2 (12:11→22:05)
--- NOTE | 2018-08-08 14:42 | Progress Note ---
Assessment and Plan Assessment and plan: Patient is a 63 yo woman with a history of CHF, EF of 35%, hypertension, diabetes mellitus and morbid obesity who presented to ER with c/o SOB. Acute hypoxic respiratory failure, - on 3 liters on O2; due to CHf and COPD exacerbation - Cardiology and Pulmonology following, continue to manage underlying cause Acute on chronic systolic heart failure: - managed with diuresis, her heart failure medications, Cardiology consulted, input noted - stress mpi from 07/26 neg for ischemia, ef ~40% - pt will follow up in cardiology office with Dr. Benitez within 3-5 days of hospital discharge ([phone]) COPD; consulted Pulmonology, treated with frequent nebs and as needed, now stable Hypertension, uncontrolled: low salt diet, Diabetes Mellitus: ADA diet, ssi Morbid Obesity, bmi 59.2: counseled for outpatient NIKKI screen Noncompliant: continued travel counselor on compliance NSVT asymptomatic: Cardiology evaluated, medical Mx, increased bblocker Physical debility- PT recommended JOCELYN placement, her insurance declined. CM asked for peer to peer. History Interval history: Patient was seen and evaluated at the bedside, patient is on intranasal oxygen. Hospitalist Physical - Physical exam Narrative exam: Not in cardiopulmonary distress. The patient is morbidly obese. Vital signs as documented. Head exam is unremarkable. No scleral icterus . Neck is without jugular venous distension, thyromegaly, or carotid bruits. Lungs are clear to auscultation. Cardiac exam reveals regular rate and Rhythm. Abdominal exam reveals normal bowel sounds. Extremities are dry, healing stasis venous ulcers. 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 No focal weakness. - Constitutional Vitals: Temp Pulse Resp BP Pulse Ox 98.4 F 68 20 180/87 85 08/08/18 11:56 08/08/18 11:56 08/08/18 11:56 08/08/18 11:56 08/08/18 11:56 General appearance: Absent: mild distress Results - Labs CBC & Chem 7: 08/01/18 10:04 08/01/18 10:04 Labs: Laboratory Last Values WBC 3.3 K/mm3 (4.5-11.0) L 08/01/18 10:04 RBC 4.48 M/mm3 (3.65-5.03) 08/01/18 10:04 Hgb 12.9 gm/dl (10.1-14.3) 08/01/18 10:04 Hct 40.4 % (30.3-42.9) 08/01/18 10:04 MCV 90 fl (79-97) 08/01/18 10:04 MCH 29 pg (28-32) 08/01/18 10:04 MCHC 32 % (30-34) 08/01/18 10:04 RDW 16.7 % (13.2-15.2) H 08/01/18 10:04 Plt Count 239 K/mm3 (140-440) 08/01/18 10:04 Lymph % (Auto) 26.2 % (13.4-35.0) 07/23/18 07:24 [place] % (Auto) 15.2 % (0.0-7.3) H 07/23/18 07:24 Eos % (Auto) 3.6 % (0.0-4.3) 07/23/18 07:24 Baso % (Auto) 0.9 % (0.0-1.8) 07/23/18 07:24 Lymph # 1.1 K/mm3 (1.2-5.4) L 07/23/18 07:24 [place] # 0.6 K/mm3 (0.0-0.8) 07/23/18 07:24 Eos # 0.2 K/mm3 (0.0-0.4) 07/23/18 07:24 Baso # 0.0 K/mm3 (0.0-0.1) 07/23/18 07:24 Seg Neutrophils % 54.1 % (40.0-70.0) 07/23/18 07:24 Seg Neutrophils # 2.3 K/mm3 (1.8-7.7) 07/23/18 07:24 PT 15.5 Sec. (12.2-14.9) H 07/22/18 19:35 INR 1.16 (0.87-1.13) H 07/22/18 19:35 APTT 34.6 Sec. (24.2-36.6) 07/22/18 19:35 Sodium 139 mmol/L (137-145) 08/01/18 10:04 Potassium 3.7 mmol/L (3.6-5.0) 08/01/18 10:04 Chloride 91.0 mmol/L (98-107) L 08/01/18 10:04 Carbon Dioxide 39 mmol/L (22-30) H 08/01/18 10:04 13 mmol/L 08/01/18 10:04 BUN 9 mg/dL (7-17) 08/01/18 10:04 0.3 mg/dL (0.7-1.2) L 08/01/18 10:04 Estimated GFR > 60 ml/min 08/01/18 10:04 30 % 08/01/18 10:04 Glucose 157 mg/dL (65-100) H 08/01/18 10:04 POC Glucose 145 (70-105) H 08/08/18 11:55 Calcium 8.7 mg/dL (8.4-10.2) 08/01/18 10:04 Magnesium 1.70 mg/dL (1.7-2.3) 07/28/18 13:01 0.70 mg/dL (0.1-1.2) 07/22/18 19:35 AST 22 units/L (5-40) 07/22/18 19:35 ALT 10 units/L (7-56) 07/22/18 19:35 69 units/L (35-129) 07/22/18 19:35 90 units/L (30-135) 07/23/18 07:24 CK-MB (CK-2) 2.5 ng/mL (0.0-4.0) 07/23/18 07:24 CK-MB (CK-2) Rel Index 2.7 (0-4) 07/23/18 07:24 0.019 ng/mL (0.00-0.029) 07/23/18 07:24 NT-Pro-B Natriuret Pep 3049 pg/mL (0-900) H 07/22/18 19:36 8.3 g/dL (6.3-8.2) H 07/22/18 19:35 3.3 g/dL (3.9-5) L 07/22/18 19:35 0.7 % 07/22/18 19:35 Active Medications - Current Medications Current Medications: Generic Name Dose Route Start Last Admin Trade Name Freq PRN Reason Stop Dose Admin Acetaminophen 650 mg 07/22/18 21:59 08/08/18 12:10 Tylenol PO 650 mg Q4H PRN Administration Pain MILD(1-3)/Fever >100.5/KIMBALL Arformoterol Tartrate 15 mcg 08/05/18 20:00 08/08/18 07:28 Brovana Nebu IH 15 mcg Q12HRT DANIEL Administration Artificial Tears 2 drops 08/03/18 22:18 08/04/18 17:25 Isopto Tears 0.5% OU 2 drops Q4H PRN Administration Dry Eye(s) Aspirin 81 mg 07/23/18 10:00 08/08/18 12:09 Baby Aspirin PO 81 mg QDAY DANIEL Administration Budesonide 0.5 mg 08/05/18 20:00 08/08/18 07:28 Pulmicort IH 0.5 mg Q12HRT DANIEL Administration Dextrose 50 ml 07/22/18 22:06 D50w (25gm) Syringe IV PRN PRN Hypoglycemia Enoxaparin Sodium 40 mg 07/23/18 10:00 08/08/18 12:10 Lovenox SUB-Q 40 mg QDAY DANIEL Administration Furosemide 40 mg 07/23/18 06:00 08/08/18 06:10 Lasix IV 40 mg BID@0600,1800 DANIEL Administration Ibuprofen 400 mg 08/04/18 14:39 08/08/18 06:10 Motrin PO 400 mg Q6H PRN Administration Pain, Mild (1-3) Lisinopril 5 mg 07/23/18 12:00 08/08/18 12:09 Zestril PO 5 mg QDAY DANIEL Administration Metoprolol Tartrate 75 mg 07/28/18 14:00 08/08/18 12:09 Lopressor PO 75 mg BID DANIEL Administration Ondansetron HCl 4 mg 07/22/18 21:59 Zofran IV Q8H PRN Nausea And Vomiting Sodium Chloride 10 ml 07/22/18 22:00 08/08/18 12:11 Sodium Chloride Flush Syringe 10 Ml IV 10 ml BID DANIEL Administration Sodium Chloride 10 ml 07/22/18 21:59 08/08/18 06:12 Sodium Chloride Flush Syringe 10 Ml IV 10 ml PRN PRN Administration LINE FLUSH Nutrition/Malnutrition Assess - Dietary Evaluation Nutrition/Malnutrition Findings: Nutrition Notes Start: 07/23/18 15:03 Freq: Status: Active Protocol: Document 08/07/18 18:04 RM (Rec: 08/07/18 18:09 RM [email or web address]) Nutrition Notes Initial or Follow up Reassessment Current Diagnosis Diabetes,Hypertension,Heart Failure Other Pertinent Diagnosis Obesity, Noncompliant, Lower extremity edema Current Diet Cardiac/Consistent CHO w/ glucerna 1 daily Labs/Tests Reviewed Pertinent Medications Lasix Height 5 ft 3 in Weight 134.8 kg Jenkins Body Weight (kg) 52.27 BMI 52.6 Weight change and time frame Wt loss likely d/t fluid change. Subjective/Other Information Pt stated that she eats all of her meals and drinks the Glucerna. Percent of energy/protein needs met: 100%/100% Burn Absent Trauma Absent #1 Nutrition Diagnosis Malnutrition Diagnosis Progress(for reassessment Continues documentation) Is patient on ventilator? No Is Patient Ambulatory and/or Out of Bed Yes REE-([facility]-ambulatory/OOB) [ 2446.769 [id number]] Kcal/Kg value to use for calculation 14 Approximate Energy Requirements Using 1887 kcal/Kg Calculation Used for Recommendations Kcal/kg Additional Notes Protein Needs: 82-102g (0.8-1g /kg 102kg adjBW) Fluid Needs: 1 ml/kcal Nutrition Intervention Change Diet Order: Continue current Add Supplement/Snack (indicate name/kcal D/C Glucerna /protein ) Goal #1 Continue to meet at least 75% of calorie and protein needs via PO Anticipated Discharge Needs: Cardiac/Consistent CHO diet Revisit per MD consult or patient Sign Off request:
[2018-08-08] MEDS: PEPCID IV SCH (22:05)
[2018-08-09] MEDS: LASIX IV SCH (06:23)
[2018-08-09] MEDS: PULMICORT IH SCH (08:48)
[2018-08-09] MEDS: BROVANA NEBU IH SCH (08:48)
--- NOTE | 2018-08-09 10:30 | Discharge Summary ---
Providers - Providers Date of Admission: 07/22/18 21:59 Attending physician: NICKY RIGGINS MD 07/24/18 16:08 Consult to Physician [CONS] Routine Comment: Consulting Provider: ALBERTO DAWSON Physician Instructions: Reason For Exam: COPD, ?NIKKI 07/25/18 10:35 Occupational Therapy Evaluate and Treat [CONS] Routine Comment: Reason For Exam: ADLs evaluation Physical Therapy Evaluation and Treat [CONS] Routine Comment: Reason For Exam: gait evaluation/ambulatory dysfunction Primary care physician: MARIE GEORGE Hospitalization Reason for admission: COPD exacerbation, CHF exacerbation Condition: Stable Hospital course: 63-year-old woman with a history of CHF, EF of 35%, hypertension, diabetes, morbid obesity, presented to emergency room complaints of shortness of breath and stated that she blew up. She has swelling all over, also complain of PND, orthopnea and lower extremity edema. She was admitted to the hospital in March discharged on the eighth, after she completed the medication that she was upon discharge, she has not taken any further medication, she states she had no refills and had problems going to her primary care physician. She went for a physical today, they sent her to the emergency room for further evaluation. Acute hypoxic respiratory failure, - on 3 liters on O2; due to CHf and COPD exacerbation - Cardiology and Pulmonology input appreciated Acute on chronic systolic heart failure: - managed with diuresis, her heart failure medications, Cardiology consulted, input noted - stress mpi from 07/26 neg for ischemia, ef ~40% - pt will follow up in cardiology office with Dr. Benitez within 3-5 days of hospital discharge ([phone]) COPD; consulted Pulmonology, treated with frequent nebs and as needed, now stable Hypertension, controlled: low salt diet, and continue BP meds. Diabetes Mellitus: ADA diet, ssi Morbid Obesity, bmi 59.2: counseled for outpatient NIKKI screen Noncompliant: continued peer financial counselor on compliance NSVT asymptomatic: Cardiology evaluated, medical Mx, increased bblocker Physical debility- PT recommended JOCELYN placement, her insurance declined. Patient home antibiotics and advised to continue at home. Disposition: [id number] HOME UNDER HOME HLTH Time spent for discharge: 32 minutes - Discharge Diagnoses (1) Acute on chronic respiratory failure Status: Acute (2) CHF exacerbation Status: Acute (3) Edema Status: Acute (4) NSVT (nonsustained ventricular tachycardia) Status: Acute (5) Cardiomyopathy Status: Chronic (6) Noncompliance with medication regimen Status: Chronic (7) Obesity Status: Chronic (8) Uncontrolled hypertension Status: Chronic Core Measure Documentation - Palliative Care Palliative Care/ Comfort Measures: Not Applicable - Core Measures Any of the following diagnoses?: none Exam - Physical Exam Narrative exam: Not in cardiopulmonary distress. The patient is morbidly obese. Vital signs as documented. Head exam is unremarkable. No scleral icterus . Neck is without jugular venous distension, thyromegaly, or carotid bruits. Lungs are clear to auscultation. Cardiac exam reveals regular rate and Rhythm. Abdominal exam reveals normal bowel sounds. Extremities are dry, healing stasis venous ulcers. 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 No focal weakness. - Constitutional Vitals: Temp Pulse Resp BP Pulse Ox 97.9 F 64 19 153/83 100 08/09/18 05:10 08/09/18 05:10 08/09/18 05:10 08/09/18 05:10 08/09/18 05:10 Plan Activity: no restrictions Weight Bearing Status: Full Weight Bearing Diet: low cholesterol, low salt, low carbohydrate Follow up with: MARIE GEORGE MD [Primary Care Provider] - 7 Days ADITHYA CAMPO MD [Staff Physician] - 10 Days Prescriptions: AtorvaSTATin [Lipitor] 40 mg PO QHS #30 tab Furosemide [Lasix TAB] 40 mg PO BID #60 tablet Metoprolol [Lopressor TAB] 75 mg PO BID #60 tablet ALBUTEROL Inhaler (OR & NICU) [Proair] 2 puff IH QID PRN 30 Days #1 vial PRN Reason: Shortness Of Breath Budesonide/Formoterol Fumarate [Symbicort 80-4.5 Mcg Inhaler] 10.2 gm IH BID 30 Days hfa.aer.ad Lisinopril [Zestril TAB] 5 mg PO QDAY #30 tablet
[2018-08-09] MEDS: PEPCID IV SCH (10:45)
[2018-08-09] MEDS: LOPRESSOR PO SCH (10:45)
[2018-08-09] MEDS: ZESTRIL PO SCH (10:45)
[2018-08-09] MEDS: BABY ASPIRIN PO SCH (10:45)
[2018-08-09] MEDS: LOVENOX SUB-Q SCH (10:45)
[2018-08-09] MEDS: SODIUM CHLORIDE FLUSH SYRINGE 10 ML IV SCH (10:46)
[2018-08-09] MEDS: IBUPROFEN PO PRN (12:03)
[2018-08-09] MEDS ORDERED: APRESOLINE IV PRN (12:34)
[2018-08-09 14:12] VITALS: BP 143/69
--- NOTE | 2018-08-09 14:37 | Progress Note ---
Assessment and Plan Assessment and plan: Patient is a 63 yo woman with a history of CHF, EF of 35%, hypertension, diabetes mellitus and morbid obesity who presented to ER with c/o SOB. Acute hypoxic respiratory failure, - on 3 liters on O2; due to CHf and COPD exacerbation - Cardiology and Pulmonology following, continue to manage underlying cause Acute on chronic systolic heart failure: - managed with diuresis, her heart failure medications, Cardiology consulted, input noted - stress mpi from 07/26 neg for ischemia, ef ~40% - pt will follow up in cardiology office with Dr. Benitez within 3-5 days of hospital discharge ([phone]) COPD; consulted Pulmonology, treated with frequent nebs and as needed, now stable Hypertension, uncontrolled: low salt diet, Diabetes Mellitus: ADA diet, ssi Morbid Obesity, bmi 59.2: counseled for outpatient NIKKI screen Noncompliant: continued director counseling bureau on compliance NSVT asymptomatic: Cardiology evaluated, medical Mx, increased bblocker Physical debility- PT recommended [facility] placement, her insurance declined. Patient will be discharged home with HH. Patient said she has been using home O2. - Patient Problems (1) Acute on chronic respiratory failure Current Visit: Yes Status: Acute (2) CHF exacerbation Current Visit: Yes Status: Acute (3) Edema Current Visit: Yes Status: Acute (4) NSVT (nonsustained ventricular tachycardia) Current Visit: Yes Status: Acute (5) Cardiomyopathy Current Visit: Yes Status: Chronic (6) Noncompliance with medication regimen Current Visit: Yes Status: Chronic (7) Obesity Current Visit: Yes Status: Chronic (8) Uncontrolled hypertension Current Visit: Yes Status: Chronic History Interval history: Patient was seen and evaluated at the bedside, patient is on intranasal oxygen. Hospitalist Physical - Physical exam Narrative exam: Not in cardiopulmonary distress. The patient is morbidly obese. Vital signs as documented. Head exam is unremarkable. No scleral icterus . Neck is without jugular venous distension, thyromegaly, or carotid bruits. Lungs are clear to auscultation. Cardiac exam reveals regular rate and Rhythm. Abdominal exam reveals normal bowel sounds. Extremities are dry, healing stasis venous ulcers. 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 No focal weakness. - Constitutional Vitals: Temp Pulse Resp BP Pulse Ox 97.6 F 85 22 143/69 93 08/09/18 12:08 08/09/18 14:06 08/09/18 12:08 08/09/18 14:06 08/09/18 14:06 General appearance: Absent: mild distress Results - Labs CBC & Chem 7: 08/01/18 10:04 08/01/18 10:04 Labs: Laboratory Last Values WBC 3.3 K/mm3 (4.5-11.0) L 08/01/18 10:04 RBC 4.48 M/mm3 (3.65-5.03) 08/01/18 10:04 Hgb 12.9 gm/dl (10.1-14.3) 08/01/18 10:04 Hct 40.4 % (30.3-42.9) 08/01/18 10:04 MCV 90 fl (79-97) 08/01/18 10:04 MCH 29 pg (28-32) 08/01/18 10:04 MCHC 32 % (30-34) 08/01/18 10:04 RDW 16.7 % (13.2-15.2) H 08/01/18 10:04 Plt Count 239 K/mm3 (140-440) 08/01/18 10:04 Lymph % (Auto) 26.2 % (13.4-35.0) 07/23/18 07:24 Amelia % (Auto) 15.2 % (0.0-7.3) H 07/23/18 07:24 Eos % (Auto) 3.6 % (0.0-4.3) 07/23/18 07:24 Baso % (Auto) 0.9 % (0.0-1.8) 07/23/18 07:24 Lymph # 1.1 K/mm3 (1.2-5.4) L 07/23/18 07:24 Amelia # 0.6 K/mm3 (0.0-0.8) 07/23/18 07:24 Eos # 0.2 K/mm3 (0.0-0.4) 07/23/18 07:24 Baso # 0.0 K/mm3 (0.0-0.1) 07/23/18 07:24 Seg Neutrophils % 54.1 % (40.0-70.0) 07/23/18 07:24 Seg Neutrophils # 2.3 K/mm3 (1.8-7.7) 07/23/18 07:24 PT 15.5 Sec. (12.2-14.9) H 07/22/18 19:35 INR 1.16 (0.87-1.13) H 07/22/18 19:35 APTT 34.6 Sec. (24.2-36.6) 07/22/18 19:35 Sodium 139 mmol/L (137-145) 08/01/18 10:04 Potassium 3.7 mmol/L (3.6-5.0) 08/01/18 10:04 Chloride 91.0 mmol/L (98-107) L 08/01/18 10:04 Carbon Dioxide 39 mmol/L (22-30) H 08/01/18 10:04 13 mmol/L 08/01/18 10:04 BUN 9 mg/dL (7-17) 08/01/18 10:04 0.3 mg/dL (0.7-1.2) L 08/01/18 10:04 Estimated GFR > 60 ml/min 08/01/18 10:04 30 % 08/01/18 10:04 Glucose 157 mg/dL (65-100) H 08/01/18 10:04 POC Glucose 148 (70-105) H 08/09/18 12:12 Calcium 8.7 mg/dL (8.4-10.2) 08/01/18 10:04 Magnesium 1.70 mg/dL (1.7-2.3) 07/28/18 13:01 0.70 mg/dL (0.1-1.2) 07/22/18 19:35 AST 22 units/L (5-40) 07/22/18 19:35 ALT 10 units/L (7-56) 07/22/18 19:35 69 units/L (35-129) 07/22/18 19:35 90 units/L (30-135) 07/23/18 07:24 CK-MB (CK-2) 2.5 ng/mL (0.0-4.0) 07/23/18 07:24 CK-MB (CK-2) Rel Index 2.7 (0-4) 07/23/18 07:24 0.019 ng/mL (0.00-0.029) 07/23/18 07:24 NT-Pro-B Natriuret Pep 3049 pg/mL (0-900) H 07/22/18 19:36 8.3 g/dL (6.3-8.2) H 07/22/18 19:35 3.3 g/dL (3.9-5) L 07/22/18 19:35 0.7 % 07/22/18 19:35 Active Medications - Current Medications Current Medications: Generic Name Dose Route Start Last Admin Trade Name Freq PRN Reason Stop Dose Admin Acetaminophen 650 mg 07/22/18 21:59 08/08/18 12:10 Tylenol PO 650 mg Q4H PRN Administration Pain MILD(1-3)/Fever >100.5/KIMBALL Arformoterol Tartrate 15 mcg 08/05/18 20:00 08/09/18 08:48 Brovana Nebu IH 15 mcg Q12HRT DANIEL Administration Artificial Tears 2 drops 08/03/18 22:18 08/04/18 17:25 Isopto Tears 0.5% OU 2 drops Q4H PRN Administration Dry Eye(s) Aspirin 81 mg 07/23/18 10:00 08/09/18 10:45 Baby Aspirin PO 81 mg QDAY DANIEL Administration Budesonide 0.5 mg 08/05/18 20:00 08/09/18 08:48 Pulmicort IH 0.5 mg Q12HRT DANIEL Administration Dextrose 50 ml 07/22/18 22:06 D50w (25gm) Syringe IV PRN PRN Hypoglycemia Enoxaparin Sodium 40 mg 07/23/18 10:00 08/09/18 10:45 Lovenox SUB-Q 40 mg QDAY DANIEL Administration Famotidine 20 mg 08/08/18 22:00 08/09/18 10:45 Pepcid IV 20 mg BID ADNIEL Administration Furosemide 40 mg 07/23/18 06:00 08/09/18 06:23 Lasix IV 40 mg BID@0600,1800 DANIEL Administration Hydralazine HCl 10 mg 08/09/18 12:34 08/09/18 13:40 Apresoline IV 10 mg Q4HR PRN Administration Hypertension Ibuprofen 400 mg 08/04/18 14:39 08/09/18 12:03 Motrin PO 400 mg Q6H PRN Administration Pain, Mild (1-3) Lisinopril 5 mg 07/23/18 12:00 08/09/18 10:45 Zestril PO 5 mg QDAY DANIEL Administration Metoprolol Tartrate 75 mg 07/28/18 14:00 08/09/18 10:45 Lopressor PO 75 mg BID DANIEL Administration Ondansetron HCl 4 mg 07/22/18 21:59 Zofran IV Q8H PRN Nausea And Vomiting Sodium Chloride 10 ml 07/22/18 22:00 08/09/18 10:46 Sodium Chloride Flush Syringe 10 Ml IV 10 ml BID DANIEL Administration Sodium Chloride 10 ml 07/22/18 21:59 08/08/18 06:12 Sodium Chloride Flush Syringe 10 Ml IV 10 ml PRN PRN Administration LINE FLUSH Nutrition/Malnutrition Assess - Dietary Evaluation Nutrition/Malnutrition Findings: Nutrition Notes Start: 07/23/18 15:03 Freq: Status: Active Protocol: Document 08/07/18 18:04 RM (Rec: 08/07/18 18:09 RM [id number]) Nutrition Notes Initial or Follow up Reassessment Current Diagnosis Diabetes,Hypertension,Heart Failure Other Pertinent Diagnosis Obesity, Noncompliant, Lower extremity edema Current Diet Cardiac/Consistent CHO w/ glucerna 1 daily Labs/Tests Reviewed Pertinent Medications Lasix Height 5 ft 3 in Weight 134.8 kg Strong Body Weight (kg) 52.27 BMI 52.6 Weight change and time frame Wt loss likely d/t fluid change. Subjective/Other Information Pt stated that she eats all of her meals and drinks the Glucerna. Percent of energy/protein needs met: 100%/100% Burn Absent Trauma Absent #1 Nutrition Diagnosis Malnutrition Diagnosis Progress(for reassessment Continues documentation) Is patient on ventilator? No Is Patient Ambulatory and/or Out of Bed Yes REE-([facility]-ambulatory/OOB) [ 2446.769 [id number]] Kcal/Kg value to use for calculation 14 Approximate Energy Requirements Using 1887 kcal/Kg Calculation Used for Recommendations Kcal/kg Additional Notes Protein Needs: 82-102g (0.8-1g /kg 102kg adjBW) Fluid Needs: 1 ml/kcal Nutrition Intervention Change Diet Order: Continue current Add Supplement/Snack (indicate name/kcal D/C Glucerna /protein ) Goal #1 Continue to meet at least 75% of calorie and protein needs via PO Anticipated Discharge Needs: Cardiac/Consistent CHO diet Revisit per MD consult or patient Sign Off request:
== END 2018-08-09 15:34 | disposition home health service (06) | DRG 291 ==
LOC: ED 17:27 → 4A 21:59 → 3A 07-26 16:07
PROVIDERS: ADMIT Internal Medicine; ATTEND Internal Medicine
PROC: 4A033R1 Measurement of Arterial Saturation, Peripheral, Percutaneous Approach (ICD-10-PCS; 2018-07-22)
PROC: 3E0234Z Introduction of Serum, Toxoid and Vaccine into Muscle, Percutaneous Approach (ICD-10-PCS; principal; 2018-07-23)
DX: I11.0 Hypertensive heart disease with heart failure (principal); J96.01 Acute respiratory failure with hypoxia; Z68.43 Body mass index [BMI] 50.0-59.9, adult; I47.1 Supraventricular tachycardia; I50.23 Acute on chronic systolic (congestive) heart failure; I42.9 Cardiomyopathy, unspecified; E11.9 Type 2 diabetes mellitus without complications; E66.01 Morbid (severe) obesity due to excess calories; J44.9 Chronic obstructive pulmonary disease, unspecified; R53.81 Other malaise; Z91.14 Patient's other noncompliance with medication regimen; Z71.3 Dietary counseling and surveillance; Z82.49 Family history of ischemic heart disease and other diseases of the circulatory system; Z91.010 Allergy to peanuts; Z79.899 Other long term (current) drug therapy; Z23 Encounter for immunization
CPT/HCPCS: 36415; 71045; 78452; 80048; 80053; 82550; 82553; 82962; 83735; 83880; 84484; 85025; 85027; 85610; 85730; 87116; 90686; 90732; 93005; 93010; 93017; 94640; 94760; 96374; G0378; A9502; J0360; J1650; J1815; J1940; J2785; J3475

== ENCOUNTER 2018-08-14 13:07 | Emergency (ER) | payer MEDICARE ==
[2018-08-14] MEDS ORDERED: DUONEB *Not for PRN Use IH ONE (13:46)
[2018-08-14] MEDS ORDERED: SOLU-Medrol IV ONE (13:47)
--- NOTE | 2018-08-14 15:11 | Emergency Department Report ---
ED General Adult HPI - General Chief complaint: Dyspnea/Respdistress Stated complaint: SOB/R KNEE PAIN Time Seen by Provider: 08/14/18 13:46 Source: EMS Mode of arrival: Stretcher Limitations: No Limitations - History of Present Illness Initial comments: Patient presents to the emergency department with the chief complaint low O2 levels. Patient was given a home physical therapy on the physical therapist and his oxygen saturation had dropped into the 80s. Patient states that her oxygen taken home was not working appropriately. Patient was just discharged from our facility yesterday. Patient denies shortness of breath, chest pain, headache. -: Sudden Radiation: non-radiation Severity scale (0 -10): 0 Improves with: none Worsens with: none Associated Symptoms: denies other symptoms Treatments Prior to Arrival: none - Related Data Previous Rx's Medication Instructions Recorded Last Taken Type Aspirin [Aspirin BABY CHEW TAB] 81 mg PO QDAY tab.chew 07/30/18 Unknown Rx AtorvaSTATin [Lipitor] 40 mg PO QHS #30 tab 07/30/18 Unknown Rx ALBUTEROL Inhaler (OR & NICU) 2 puff IH QID PRN 30 Days #1 vial 08/06/18 Unknown Rx [Proair] Budesonide/Formoterol Fumarate 10.2 gm IH BID 30 Days hfa.aer.ad 08/06/18 Unknown Rx [Symbicort 80-4.5 Mcg Inhaler] Furosemide [Lasix TAB] 40 mg PO BID #60 tablet 08/06/18 Unknown Rx Lisinopril [Zestril TAB] 5 mg PO QDAY #30 tablet 08/06/18 Unknown Rx Metoprolol [Lopressor TAB] 75 mg PO BID #60 tablet 08/06/18 Unknown Rx ALBUTEROL Inhaler (OR & NICU) 2 puff IH Q4HR PRN #1 inhalation 08/14/18 Unknown Rx [ProAir HFA Inhaler] Azithromycin [Zithromax Z-VALERIE] 250 mg PO DAILY #6 tablet 08/14/18 Unknown Rx predniSONE [Deltasone] 20 mg PO DAILY #15 tablet 08/14/18 Unknown Rx Allergies Allergy/AdvReac Type Severity Reaction Status Date / Time Cheese AdvReac Nausea Uncoded 07/23/18 15:23 Peanut butter AdvReac Nausea Uncoded 07/23/18 15:22 ED Review of Systems ROS: Stated complaint: SOB/R KNEE PAIN Other details as noted in HPI Comment: All other systems reviewed and negative Constitutional: denies: chills, fever Eyes: denies: eye pain, eye discharge, vision change ENT: denies: ear pain, throat pain Respiratory: denies: cough, shortness of breath, wheezing Cardiovascular: denies: chest pain, palpitations Endocrine: no symptoms reported Gastrointestinal: denies: abdominal pain, nausea, diarrhea Genitourinary: denies: urgency, dysuria, discharge Musculoskeletal: denies: back pain, joint swelling, arthralgia Skin: denies: rash, lesions Neurological: denies: headache, weakness, paresthesias Psychiatric: denies: anxiety, depression Hematological/Lymphatic: denies: easy bleeding, easy bruising ED Past Medical Hx - Past Medical History Hx Hypertension: Yes Hx Congestive Heart Failure: Yes Hx Diabetes: No Hx Asthma: No Hx COPD: No Hx HIV: No - Social History Smoking Status: Never Smoker Substance Use Type: None - Medications Home Medications: Home Medications Medication Instructions Recorded Confirmed Last Taken Type Aspirin [Aspirin BABY CHEW TAB] 81 mg PO QDAY tab.chew 07/30/18 Unknown Rx AtorvaSTATin [Lipitor] 40 mg PO QHS #30 tab 07/30/18 Unknown Rx ALBUTEROL Inhaler (OR & NICU) 2 puff IH QID PRN 30 Days #1 vial 08/06/18 Unknown Rx [Proair] Budesonide/Formoterol Fumarate 10.2 gm IH BID 30 Days hfa.aer.ad 08/06/18 Unknown Rx [Symbicort 80-4.5 Mcg Inhaler] Furosemide [Lasix TAB] 40 mg PO BID #60 tablet 08/06/18 Unknown Rx Lisinopril [Zestril TAB] 5 mg PO QDAY #30 tablet 08/06/18 Unknown Rx Metoprolol [Lopressor TAB] 75 mg PO BID #60 tablet 08/06/18 Unknown Rx ALBUTEROL Inhaler (OR & NICU) 2 puff IH Q4HR PRN #1 inhalation 08/14/18 Unknown Rx [ProAir HFA Inhaler] Azithromycin [Zithromax Z-VALERIE] 250 mg PO DAILY #6 tablet 08/14/18 Unknown Rx predniSONE [Deltasone] 20 mg PO DAILY #15 tablet 08/14/18 Unknown Rx ED Physical Exam - General Limitations: No Limitations General appearance: alert, in no apparent distress - Head Head exam: Present: atraumatic, normocephalic - Eye Eye exam: Present: normal appearance, PERRL, EOMI - ENT ENT exam: Present: mucous membranes moist - Neck Neck exam: Present: normal inspection - Respiratory Respiratory exam: Present: normal lung sounds bilaterally, wheezes. Absent: respiratory distress, rales - Cardiovascular Cardiovascular Exam: Present: regular rate, normal rhythm. Absent: systolic murmur, diastolic murmur, rubs, gallop - GI/Abdominal GI/Abdominal exam: Present: soft, normal bowel sounds. Absent: distended, tenderness - Extremities Exam Extremities exam: Present: normal inspection - Back Exam Back exam: Present: normal inspection - Neurological Exam Neurological exam: Present: alert, oriented X3, CN II-XII intact. Absent: motor sensory deficit - Psychiatric Psychiatric exam: Present: normal affect, normal mood - Skin Skin exam: Present: warm, dry, intact, normal color. Absent: rash ED Course Vital Signs 08/14/18 08/14/18 08/14/18 13:34 13:39 13:45 Temperature 98.7 F Pulse Rate 75 76 84 Pulse Rate [ Bilateral] Pulse Rate [ Throughout] Respiratory 12 20 22 Rate Respiratory Rate [Bilateral ] Respiratory Rate [ Throughout] Blood Pressure 156/81 Blood Pressure 156/81 [Left] O2 Sat by Pulse 91 96 Oximetry 08/14/18 08/14/18 08/14/18 14:00 14:25 14:31 Temperature Pulse Rate 76 81 74 Pulse Rate [ Bilateral] Pulse Rate [ Throughout] Respiratory 18 18 22 Rate Respiratory Rate [Bilateral ] Respiratory Rate [ Throughout] Blood Pressure 165/87 165/87 165/87 Blood Pressure [Left] O2 Sat by Pulse 92 94 96 Oximetry 08/14/18 08/14/18 08/14/18 14:45 15:01 15:15 Temperature Pulse Rate 76 75 81 Pulse Rate [ Bilateral] Pulse Rate [ Throughout] Respiratory 17 19 17 Rate Respiratory Rate [Bilateral ] Respiratory Rate [ Throughout] Blood Pressure 165/87 142/77 142/77 Blood Pressure [Left] O2 Sat by Pulse 90 85 88 Oximetry 08/14/18 08/14/18 08/14/18 15:31 15:45 16:01 Temperature Pulse Rate 83 81 81 Pulse Rate [ Bilateral] Pulse Rate [ Throughout] Respiratory 14 25 H 23 Rate Respiratory Rate [Bilateral ] Respiratory Rate [ Throughout] Blood Pressure 142/77 142/77 137/69 Blood Pressure [Left] O2 Sat by Pulse 90 93 92 Oximetry 08/14/18 08/14/18 08/14/18 16:08 16:15 16:31 Temperature Pulse Rate 79 82 Pulse Rate [ 92 H Bilateral] Pulse Rate [ 90 Throughout] Respiratory 12 19 Rate Respiratory 16 Rate [Bilateral ] Respiratory 16 Rate [ Throughout] Blood Pressure 137/69 172/87 Blood Pressure [Left] O2 Sat by Pulse 95 94 Oximetry 08/14/18 08/14/18 08/14/18 16:45 17:01 17:31 Temperature Pulse Rate 82 79 90 Pulse Rate [ Bilateral] Pulse Rate [ Throughout] Respiratory 20 26 H 18 Rate Respiratory Rate [Bilateral ] Respiratory Rate [ Throughout] Blood Pressure 172/87 187/61 174/95 Blood Pressure [Left] O2 Sat by Pulse 94 93 92 Oximetry ED Medical Decision Making - Lab Data Lab Results 08/14/18 Range/Units 16:09 POC ABG pH 7.393 (7.35-7.45) POC ABG pCO2 53.1 H (35-45) POC ABG pO2 56 L (80-105) POC ABG HCO3 32.4 (22-26 mml/L) POC ABG Total CO2 34 (23-27mmol/L) POC ABG O2 Sat 88 POC ABG Base Excess 7 ((-2) - (+3)mmol/L) FiO2 21 % - Medical Decision Making Past social media marketer evaluate the patient for oxygen during her last visit to the hospital. Upon the review of the patient's medical record she was evaluated for home O2 and found not eligible for home O2 The patient states she will use her O2 that she has a home Critical care attestation.: If time is entered above; I have spent that time in minutes in the direct care of this critically ill patient, excluding procedure time. ED Disposition Clinical Impression: COPD exacerbation Disposition: DC-01 TO HOME OR SELFCARE Is pt being admited?: No Does the pt Need Aspirin: No Condition: Stable Instructions: Chronic Obstructive Pulmonary Disease (ED) Additional Instructions: return if worse Referrals: PRIMARY CARE, [Primary Care Provider] - 3-5 Days [facility] [Provider Group] - 3-5 Days [facility] [Provider Group] - 3-5 Days Time of Disposition: 17:44
[2018-08-14 19:33] VITALS: BP 147/88
== END 2018-08-14 19:00 | disposition home or self-care (01) ==
LOC: ED 13:07
DX: J44.1 Chronic obstructive pulmonary disease with (acute) exacerbation (principal); I11.0 Hypertensive heart disease with heart failure; I50.9 Heart failure, unspecified; Z91.010 Allergy to peanuts; Z91.018 Allergy to other foods; Z79.82 Long term (current) use of aspirin
CPT/HCPCS: 82803; 94640; 96374; 99284; J2930